=== PATIENT | female | born 1935 | race Caucasian/White ===

== ENCOUNTER 2016-10-21 22:30 | Inpatient (IN) | payer MEDICAID ==
--- NOTE | 2016-10-21 23:10 | ED Physician Chart ---
Chief Complaint/HPI - Patient Information Date Seen:: 10/21/16 Time Seen:: 23:07 Chief Complaint:: MECHANICAL FALL WITH HEAD AND LT HIP INJURY History of Present Illness:: PT WAS GOING DOWN STEP WHEN SHE MISS STEPPED AND FELL TO CONCRETE SURFACE. SHE STRUCK HER HEAD AND LOST CONSCIOUSNESSNESS FOR A MINUTE OR TWO. ALSO COMPLAINING OF PAIN IN THE LEFT HIP AND PELVIC REGION. Review of Systems - Review of Systems General/Constitutional: No fever, No chills, No weight loss, No weakness, No diaphoresis Skin: No skin lesions, No rash, No bruising Head: No light-headedness, Other (mild headache.) Eyes: No loss of vision, No pain, No diplopia ENT: No earache, Nasal drainage, No sore throat, No tinnitus Neck: No neck pain, No mass noted Cardio Vascular: No chest pain, No palpitations, No edema Pulmonary: No SOB, No cough, No sputum, No wheezing GI: No nausea, No vomiting, No diarrhea, No pain G/U: No dysuria, No frequency Picture Frames Inspector: No abnormal vaginal bleed Musculoskeletal: Bone or joint pain (left hip region.), No back pain, No muscle pain Psychiatric: No prior psych history, No suicidal ideation Neurological: No syncope, Weakness (weakness and left lower extremity secondary to traumatic injury.) Past Medical History - Past Medical History Past Medical History: HTN Social History: Non Smoker, No Alcohol, No Drug Use Surgical History: None, other (, cataract surgery left eye.) Psychiatricy History: None Family Medical History - Family Member Daughter Ethnicity: Living Status: Still Living Physical Exam - Physical Examination General/Constitutional: Awake, Well-developed, well-nourished, Alert Other Gen/Cons comments:: Moderate distress from her left hip region. Head: Atraumatic Eyes: Lids, conjuctiva normal, PERRL, EOMI Skin: Nl inspection, No rash, No skin lesions, No ecchymosis, Well hydrated, No lymphadenopathy ENMT: TM canals nl, Nasal exam nl, Tonsils nl Other ENMT comments:: Oral mucosa is dry. Neck: Nontender, No JVD, No mass, No stridor Other Neck comments:: Range of motion is not assessed for concern of possible C-spine fracture. Respiratory: Nl effort/Exclusion, No Wheeze/Rhonchi/Rales Cardio Vascular: No murmur, gallop, rubs, NL S1 S2 Other Cardio Vascular comments:: Ration has adequate pulses in all 4 extremities. GI: No tenderness/rebounding/guarding, No organomegaly, No hernia, Normal BS's, Nondistended, No mass/bruits, No McBurney tenderness Other GI comments:: Rectal exam deferred at my discretion. : No CVA tenderness Other Extremities comments:: has foreshortening of the left lower extremity and tenderness to palpation over the hip region. Good distal pulses. Sensation is intact throughout to light touch. Neuro/Psych: Normal sensory exam, Mood normal Other Neuro/Psych comments:: Gait not tested secondary to concern over possible left hip fracture. Misc: No paraspinal tenderness Labs/Radiology/EKG Results - Lab Results Results: 2 views of the left hip show an intertrochanteric displaced fracture of the left hip. It is no dislocation of the hip joint and no visible pelvic fracture. Mild degenerative changes of the hip joint are present. IMPRESSION: ACUTE INTERTROCHANTERIC FRACTURE. CT scan of the head and C-spine without contrast was negative for any evidence of acute traumatic injury or intracranial bleed. Laboratory Tests 10/21/16 10/21/16 10/21/16 23:26 23:26 23:26 WBC 13.0 H RBC 4.64 Hgb 13.9 Hct 41.3 MCV 89.0 MCH 30.1 MCHC Differential 33.8 RDW 11.7 Plt Count 309 MPV 8.0 Neutrophils % 83.6 H Lymphocytes % 11.7 L Monocytes % 3.1 Eosinophils % 0.9 Basophils % 0.7 Sodium 133 L Potassium 2.9 L* Chloride 97 L Carbon Dioxide 27.4 Anion Gap 11.5 BUN 9 Creatinine 0.5 L Est GFR ( Amer) TNP Est GFR (Non-Af Amer) TNP BUN/Creatinine Ratio 18.0 Glucose 228 H Whole Bld Lactic Acid 2.79 H* Calcium 9.1 The CBC shows a leukocytosis of 13,000 which is probably consistent with a traumatic fracture of her left hip. The whole blood lactic acid is 2.79 which is moderately elevated. The white count of 13,000 makes one concerned regarding possible sepsis and the patient was treated with 30 mL of normal saline per kilogram and ceftriaxone and IV ceftriaxone 2 g. Chemistries showed a mild hypokalemia and hyponatremia. Renal function was normal. Was moderate elevation of the serum glucose at 228. Assessment - Assessment General Assessment: CASE SUMMARY: A 81-year-old female was brought to the emergency department by her family after having sustained a fall while walking downstairs. The family members stated that she miss stepped and fell to a concrete surface impacting her head with loss of consciousness. He T scan of the head and cervical spine were obtained showing no evidence of IC bleeding or acute trauma. The patient also complained of pain in the region of the left hip and it was noted that there was shortening and some mild external rotation of the left lower extremity. Radiographic studies confirmed an intertrochanteric fracture of the left hip. Laboratory studies were the most part were unremarkable except for a white count of 13,000 and a lactic acid greater than 2.0. As a precaution the patient was loaded with 30 mL/kg of normal saline and treated with IV ceftriaxone for the possibility of sepsis. Patient will be admitted to the hospital for further treatment of her hip fracture. MDM DDX FOR GROUND LEVEL MECHANICAL FALL: NO SKULL FRACTURE OR IC BLEED BASED ON HEAD CT. NO C-SPINE FX OR SUBLUXATION BASED ON C-SPINE CT SCAN. NO OPEN FRACTURES BASED ON PHYSICAL EXAM. ED Septic Shock - . Is Septic Shock (SBP<90, OR Lactate>4 mmol\L) present?: No
[2016-10-21 23:35] LABS: % BASOPHILS 0.7 % (0.0-2.0); % EOSINOPHILS 0.9 % (0.0-5.0); % LYMPHOCYTES 11.7 % (20.0-50.0); % MONOCYTES 3.1 % (2.0-10.0); % NEUTROPHILS 83.6 % (40.0-80.0); HEMATOCRIT 41.3 % (35.0-45.0); HEMOGLOBIN 13.9 gm/dL (11.7-16.1); MEAN CORPUSCULAR HEMOGLOBIN 30.1 pg (27.0-31.0); MEAN CORPUSCULAR HGB CONC 33.8 pg (28.0-36.0); NEUTROPHILE ABSOLUTE 10.9 Th/cmm (1.8-8.0); PLATELET COUNT 309 Th/cmm (150-400); RED BLOOD COUNT 4.64 Mil/cmm (3.80-5.20); RED CELL DISTRIBUTION WIDTH 11.7 % (11.5-20.0)
[2016-10-21 23:54] LABS: ANION GAP 11.5 (7.0-16.0); BUN - UREA NITROGEN 9 mg/dL (7-25); CALCIUM SERUM 9.1 mg/dL (8.6-10.3); CARBON DIOXIDE 27.4 mEq/L (21.0-31.0); CHLORIDE 97 mEq/L (98-107); CREATININE - SERUM 0.5 mg/dL (0.6-1.2); GLUCOSE 228 mg/dL (70-105); SODIUM SERUM 133 mEq/L (136-145)
[2016-10-22 00:06] LABS: POTASSIUM SERUM 2.9 mEq/L (3.5-5.1)
[2016-10-22] MEDS ORDERED: Sodium Chloride 0.9% 2,000 ML IV ONE (00:40)
[2016-10-22] MEDS ORDERED: Morphine Sulfate 2 mg/mL 1mL Syr ONE (00:41)
[2016-10-22] MEDS: cefTRIAXone 2 GM in Sodium Chloride 0.9% 100 ML IV ONE (01:03)
[2016-10-22 02:33] LABS: URINE BILIRUBIN NEGATIVE (NEGATIVE); URINE BLOOD SMALL (NEGATIVE); URINE GLUCOSE (UA) NEGATIVE (NEGATIVE); URINE KETONE NEGATIVE (NEGATIVE); URINE PROTEIN NEGATIVE (NEGATIVE)
[2016-10-22 02:37] LABS: URINE COLOR YELLOW
[2016-10-22 02:38] LABS: URINE BACTERIA FEW /hpf (NONE SEEN); URINE EPITHELIAL CELLS FEW /lpf (FEW); URINE WBC 0-2 /hpf (0-5)
[2016-10-22 03:25] VITALS: BP 130/72
[2016-10-22] MEDS: KCL 20mEq/100mL Premix 20 MEQ/100 ML PIGGYBACK IV SCH ×2 (05:18→18:34)
[2016-10-22] MEDS: D5-0.45NS 1,000 ML IV SCH (05:21)
[2016-10-22] MEDS: Morphine Sulfate 2 mg/mL 1mL Syr IVP PRN ×3 (07:51→22:08)
--- NOTE | 2016-10-22 08:02 | Diagnostic Imaging Report ---
Head CT without intravenous contrast Indication: Head injury, loss of consciousness Comparison: None Technique: Axial images were obtained from the vertex to the skull base without IV contrast. Coronal reconstructions were made. Total DLP: 525, CTDI31 FINDINGS: Images of the brain obtained without contrast demonstrate no evidence of an acute hemorrhage. Moderate supratentorial white matter disease is noted. The ventricles and basal cisterns are patent. No mass effect or midline shift. No evidence of a skull fracture or focal soft tissue swelling. The visualized paranasal sinuses are clear. Atherosclerosis is noted. IMPRESSION: No evidence of acute intracranial hemorrhage. Moderate supratentorial white matter disease which is nonspecific and may be due to chronic microvessel ischemia. Atherosclerotic vascular disease.
--- NOTE | 2016-10-22 08:05 | Diagnostic Imaging Report ---
Left hip/pelvis (2 views) HISTORY: Pain, trauma The exam demonstrates [a displaced] left intratrochanteric fracture. Narrowing about the right hip joint related to degenerative change. Degenerative changes seen in the lower lumbar spine. IMPRESSION: 1. Displaced left intertrochanteric fracture 2. Degenerative changes about the right hip and lower lumbar spine.
--- NOTE | 2016-10-22 08:08 | Diagnostic Imaging Report ---
CT cervical spine without IV contrast HISTORY: Trauma COMPARISON: None Technique: Axial images were obtained from the skull base to the upper thoracic spine without IV contrast. Multiplanar reconstructions were made. Total DLP: 398, CTDI22 FINDINGS: Images of the spine cervical spine obtained without contrast demonstrate no evidence of a fracture advanced multilevel degenerative changes are seen with multilevel moderate to advanced disc space loss of height and marginal osteophytic spurs. There is 1 to 2 mm anterolisthesis of C7 on T1 likely due to facet arthropathy. No prevertebral soft tissue swelling Atherosclerotic vascular disease are seen with retropharyngeal bilateral carotid arteries incidentally noted. The lung apices are clear. IMPRESSION: No evidence of acute fracture. Advanced degenerative changes. 1. 2 mm anterolisthesis of C7 on T1 most likely due to facet arthropathy. Atherosclerotic vascular disease with retropharyngeal bilateral internal carotid arteries incidentally noted.
[2016-10-22] MEDS: Enoxaparin 40 mg/0.4 mL 0.4mL Syr SUBQ SCH (09:17)
[2016-10-22] MEDS ORDERED: KCL 20mEq/100mL Premix 20 MEQ/100 ML PIGGYBACK IV ONE (12:30)
--- NOTE | 2016-10-22 17:43 | Consultation ---
Consult Note - Consult Note Service Date: 10/22/16 Referring Physician: Chidi Vora Consult Note: PHYSICIAN Consultation Note: Date of Admission: 10/22/16 Purpose of Consultation: Leukocytosis. Chief Complaint: Patient MARIA LUISA CLOUD was admitted to location Medical/Surgical Unit I with LEFT HIP FX. History of Present Illness: 81 y female was walking out of door, and tripped on the steps and fell. She complained of left hip pain so she was brought to the ER for further evaluation. Her xray of the hip showed displaced intertrochanteric fracture of the left femoral neck. His WBC Count was 13,000. sepsis w/u was performed and started on Rocephin. ID consult was called for antibiotic management. Past Medical History: Hypertension. Allergies Allergy/AdvReac Type Severity Reaction Status Date / Time No Known Allergies Allergy Verified 10/21/16 23:13 Vital Signs Temp 98.4 F 10/22/16 14:00 Pulse 76 10/22/16 17:25 Resp 18 10/22/16 17:25 BP 132/72 10/22/16 14:00 Pulse Ox 99 10/22/16 17:25 Intake & Output 10/21/16 10/22/16 10/22/16 18:59 06:59 18:59 Intake Total 240 210 Output Total 250 Balance -10 210 Weight (lbs) 61.825 kg 61.689 kg Intake: Oral 240 210 Output: Urine 250 Home Medication Medication Instructions Recorded Type Aspirin 81 mg PO DAILY 10/22/16 History Hydrochlorothiazide 25 mg PO DAILY 10/22/16 History amLODIPine Besylate [Norvasc*] 10 mg PO DAILY 10/22/16 History Current Medications Generic Name Dose Route Start Last Admin Trade Name Freq PRN Reason Stop Dose Admin Enoxaparin Sodium 40 mg 10/22/16 09:00 10/22/16 09:17 Lovenox SUBQ 12/21/16 08:59 40 mg DAILY GABRIELA Administration Ceftriaxone Sodium 1 gm/ 50 mls @ 100 mls/hr 10/22/16 21:00 Sodium Chloride IV 12/21/16 20:59 Q24HR GABRIELA Dextrose/Sodium Chloride 1,000 mls @ 80 mls/hr 10/22/16 02:42 10/22/16 05:21 D5-0.45ns IV 12/21/16 02:41 80 mls/hr .[id number] GABRIELA Administration Morphine Sulfate 2 mg 10/22/16 02:41 10/22/16 12:41 Morphine IVP 12/21/16 02:40 2 mg Q4HR PRN Administration Pain (Severe) Ondansetron HCl 4 mg 10/22/16 02:41 Zofran IV 12/21/16 02:40 Q6H PRN Nausea / Vomiting Review of Systems: A 12 point ROS was reviewed with the pertinent positive and negatives noted in the HPI. C/o pain in her left hip. NO fever, no chils. no dy Social History Smoking Status Never smoker Drug Use No Alcohol Use No Family Medical History Family Medical History Start: 10/22/16 02: 49 Freq: ONCE Status: Active Document 10/22/16 02:49 DANTE (Rec: 10/22/16 03:17 DANTE MAINOR-WOW- MS1) Family Medical History Sister Name: Ira Age 52 Hx Family Diabetes Yes Daughter Name: marques Age 39 Ethnicity Hx Family Hypertension Yes Physical Exam: General: Comfortable,not indistress. HEENT: Head: Atraumatic, normocephalic. Oral cavity: Moist, pink tongue. Eyes : Pallor is present and no icterus. Pupils PERRLA. EOMI. Neck: Neck supple no JVD noted to be thick and midline. Cardio: S1 and S2 within normal metabolism normal murmur or gallop Respiratory: CTAP Abdominal: Soft, nontender, nondistended, bowel sounds present Genital/Urinary: Deferred Extremities: No cyanosis, no clubbing, no edema. Tenderness on the left hip. Neurological: Alert, awake, alert, oriented 3. No focal neuro deficit. Assessment: 1. Leukocytosis, likely reactive. 2. Left hip fracture. 3. Hypertension. Plan: Continue Rocephin and if cultures come negative, may dc antibiotics after surgery is performed. Thank you, Dr. Chidi Vora involving me taking care of this patient Signed, Brandon Neil M.D. [id number]
[2016-10-22] MEDS: cefTRIAXone 1 GM in Sodium Chloride 0.9% 50 ML IV SCH (21:07)
--- NOTE | 2016-10-23 01:24 | Consultation ---
DATE OF CONSULTATION: 10/22/2016 ORTHOPEDIC SURGERY CONSULTATION HISTORY OF PRESENT ILLNESS: The patient is a 81-year-old lady admitted to [facility] via the Emergency Room on 10/22/2016 with a fracture of the left hip. HISTORY: The patient stated that she tripped and fell while going down a step, landing on her left side and also striking her head. Following the fall, she had pain in her left hip and was unable to stand or walk. She is brought to the hospital and x-rays were taken and a fracture of the left hip was found and she was admitted. PAST HISTORY: Surgeries, cataract of left eye. MEDICATIONS: For hypertension. EXAMINATION: The patient was examined in her hospital room. She was not still removed about because of her left hip fracture. Head is normocephalic. There is tenderness in the left parietal region. Upper extremities are unremarkable. Lower extremities, there is pain, swelling, and tenderness about the left hip. Any attempt at movement is very painful. Ankles are dry. Peripheral pulses are thready. Right lower extremity is unremarkable. IMAGING STUDIES: I did x-ray in the PACS, hips and pelvis. This is an intertrochanteric fracture of the left hip, which is displaced. ORTHOPEDIC DIAGNOSIS: Intertrochanteric fracture, left hip, closed, and displaced. PLAN: The patient was given a full informed surgical consent for surgery, 10/23/2016, ORIF fracture, left hip. JOB# [id number]
[2016-10-23] MEDS: D5-0.45NS 1,000 ML IV SCH ×2 (04:06→21:12)
--- NOTE | 2016-10-23 05:19 | History & Physical ---
ADMIT DATE: 10/22/2016 CHIEF COMPLAINT: Left hip area pain status post fall. HISTORY OF PRESENT ILLNESS: This is a 81-year-old female who tripped and fell at home yesterday and started experiencing severe left hip pain and was brought to Emergency Room at [facility], evaluated by pelvic x-ray done suggestive of displaced left intertrochanteric fracture, so the patient was subsequently admitted to the hospital for evaluation and treatment. The patient is Fijian speaking. Family was at the bedside. They are also Fijian speaking. outpatient admitting clerk was used for communication. Per family, the patient tripped and fell at home yesterday and started experiencing severe hip pain, so the patient was brought to Emergency Room. She denies any history of chest pain. No dizziness, no palpitations, no nausea, no vomiting, no headache, no trouble speech, no trouble vision, or any loss of consciousness. PAST MEDICAL HISTORY: Hypertension. PAST SURGICAL HISTORY: Denies. FAMILY HISTORY: Denies significant family history. SOCIAL HISTORY: Lives at home. No prior alcohol, tobacco, or street drug use. CURRENT MEDICATIONS: As per medication reconciliation. ALLERGIES: No known drug allergies reported. REVIEW OF SYSTEMS: Possible left hip pain. No fever, no chills, no chest pain, no shortness of breath, no dizziness, no palpitations or nausea. No vomiting. No headache. No neck pain. No leg swelling. No dysuria. No hematuria. PHYSICAL EXAMINATION: VITAL SIGNS: Temperature 98.5, pulse 75, respirations 19, blood pressure 172/74. Pain 9/10. GENERAL APPEARANCE: The patient does not seem in acute distress. HEENT: Unremarkable. HEART: S1 and S2 normal. LUNGS: Clear to auscultation bilaterally. ABDOMEN: Soft and nontender. NEUROLOGIC: Awake and alert. Moves all extremities. No focal deficit. MUSCULOSKELETAL: Left hip, painful range of motion. Otherwise, normal musculoskeletal exam. ASSESSMENT: 1. Status post mechanical fall. 2. Left hip intertrochanteric fracture. 3. Hypertension. 4. Leukocytosis, possibly reactive. 5. Elevated lactic acid level. PLAN: Admitted to Med/Surge floor. Orthopedic was consulted and IV morphine was started. Lovenox for DVT prophylaxis started. Orthopedic evaluated. The patient scheduled for surgery tomorrow afternoon. ID was also consulted for evaluation of leukocytosis. The patient was given empiric Rocephin. Home medication that reconciled will continue. Discussed with family at bedside regarding the patient's condition and plan of care, they verbalized understanding. Case was discussed with ID. Plan of care was discussed with nursing staff. JOB# [id number]
[2016-10-23] MEDS: Morphine Sulfate 2 mg/mL 1mL Syr IVP PRN ×3 (05:36→20:55)
[2016-10-23 05:42] LABS: HEMATOCRIT 39.7 % (35.0-45.0); HEMOGLOBIN 13.4 gm/dL (11.7-16.1); MEAN CELL VOLUME 89.3 fl (81-100); MEAN CORPUSCULAR HEMOGLOBIN 30.1 pg (27.0-31.0); MEAN CORPUSCULAR HGB CONC 33.7 pg (28.0-36.0); MEAN PLATELET VOLUME 8.5 fl; NEUTROPHILE ABSOLUTE 13.7 Th/cmm (1.8-8.0); PLATELET COUNT 260 Th/cmm (150-400); RED BLOOD COUNT 4.44 Mil/cmm (3.80-5.20); RED CELL DISTRIBUTION WIDTH 11.9 % (11.5-20.0)
[2016-10-23 06:07] LABS: WHITE BLOOD COUNT 16.7 Th/cmm (4.8-10.8)
[2016-10-23 06:27] LABS: ANION GAP 10.8 (7.0-16.0); BUN - UREA NITROGEN 5 mg/dL (7-25); BUN/CREATININE RATIO 12.5; CALCIUM SERUM 8.7 mg/dL (8.6-10.3); CARBON DIOXIDE 27.7 mEq/L (21.0-31.0); CHLORIDE 96 mEq/L (98-107); CREATININE - SERUM 0.4 mg/dL (0.6-1.2); GLUCOSE 196 mg/dL (70-105); SODIUM SERUM 132 mEq/L (136-145)
[2016-10-23 06:29] LABS: POTASSIUM SERUM 2.5 mEq/L (3.5-5.1)
[2016-10-23 07:16] LABS: PROTHROMBIN TIME (TEST) 10.4 SECONDS (9.5-11.5)
[2016-10-23 07:46] LABS: TOTAL CELLS COUNTED 100
[2016-10-23 07:47] LABS: BAND NEUTROPHILE 4 % (0-10); EOSINOPHIL 2 % (0-5); NEUTROPHILS 81 % (40-80)
[2016-10-23] MEDS: Enoxaparin 40 mg/0.4 mL 0.4mL Syr SUBQ SCH (08:40)
[2016-10-23] MEDS ORDERED: Potassium Chloride 40 MEQ, Lidocaine 1% 20mL Vial 25 MG in Sodium Chloride 0.9% 250 ML IV ONE (08:46)
[2016-10-23] MEDS ORDERED: Potassium Chloride 20 mEq ER Tab PO ONE (08:47)
--- NOTE | 2016-10-23 08:48 | Diagnostic Imaging Report ---
CHEST X-RAY: AP view INDICATION: Shortness of breath COMPARISON: None FINDINGS: The patient is rotated. Chronic interstitial lung changes are seen with no focal consolidation or effusions. The patient is rotated. Cardiomegaly is noted. Degenerative changes of the spine are noted. IMPRESSION: Limited exam due to rotation. Chronic interstitial lung changes with no focal consolidation identified. Cardiomegaly.
[2016-10-23] MEDS ORDERED: Sodium Chloride 0.9% IRR 1,000 ML IV ONE (15:00)
[2016-10-23] MEDS ORDERED: fentaNYL Citrate 100 mcg/2mL Vial ONE (15:36)
[2016-10-23] MEDS ORDERED: Bupivacaine 0.25% W/Ep 10 mL Vial ONE (17:05)
--- NOTE | 2016-10-23 19:34 | Infectious Disease Prog Note ---
Infectious Disease Subjective - Review of Systems Service Date: 10/23/16 Events since last encounter: Left hip ORIF performed today. Subjective: Patient has orif of left hip performed today. No fever, no chills. Infectious Disease Objective - Results Result Diagrams: 10/25/16 06:58 10/25/16 06:58 Recent Labs: Laboratory Last Values WBC 16.7 Th/cmm (4.8-10.8) H D 10/23/16 05:00 RBC 4.44 Mil/cmm (3.80-5.20) 10/23/16 05:00 Hgb 13.4 gm/dL (11.7-16.1) 10/23/16 05:00 Hct 39.7 % (35.0-45.0) 10/23/16 05:00 MCV 89.3 fl (81-100) 10/23/16 05:00 MCH 30.1 pg (27.0-31.0) 10/23/16 05:00 MCHC Differential 33.7 pg (28.0-36.0) 10/23/16 05:00 RDW 11.9 % (11.5-20.0) 10/23/16 05:00 Plt Count 260 Th/cmm (150-400) 10/23/16 05:00 MPV 8.5 fl 10/23/16 05:00 Neutrophils % SILVERING APPLICATOR 10/23/16 05:00 Band Neutrophils % 4 % (0-10) 10/23/16 05:00 Lymphocytes % SILVERING APPLICATOR 10/23/16 05:00 Monocytes % SILVERING APPLICATOR 10/23/16 05:00 Eosinophils % SILVERING APPLICATOR 10/23/16 05:00 Basophils % SILVERING APPLICATOR 10/23/16 05:00 Neutrophils (Manual) 81 % (40-80) H 10/23/16 05:00 Lymphocytes 9 % (20-50) L 10/23/16 05:00 Monocytes 3 % (2-10) 10/23/16 05:00 Eosinophils 2 % (0-5) 10/23/16 05:00 PT 10.4 SECONDS (9.5-11.5) 10/23/16 05:00 INR 1.00 (0.5-1.4) 10/23/16 05:00 Sodium 132 mEq/L (136-145) L 10/23/16 05:00 Potassium 2.5 mEq/L (3.5-5.1) L* 10/23/16 05:00 Chloride 96 mEq/L (98-107) L 10/23/16 05:00 Carbon Dioxide 27.7 mEq/L (21.0-31.0) 10/23/16 05:00 Anion Gap 10.8 (7.0-16.0) 10/23/16 05:00 BUN 5 mg/dL (7-25) L 10/23/16 05:00 Creatinine 0.4 mg/dL (0.6-1.2) L 10/23/16 05:00 Est GFR ( Amer) TNP 10/23/16 05:00 Est GFR (Non-Af Amer) TNP 10/23/16 05:00 BUN/Creatinine Ratio 12.5 10/23/16 05:00 Glucose 196 mg/dL (70-105) H 10/23/16 05:00 Hemoglobin A1c % 6.8 % (4.0-6.0) H 10/21/16 23:26 Whole Bld Lactic Acid 3.06 mmol/L (0.60-1.99) H* 10/22/16 01:30 Calcium 8.7 mg/dL (8.6-10.3) 10/23/16 05:00 Urine Source [place] 10/22/16 02:24 Urine Color YELLOW 10/22/16 02:24 Urine Clarity CLEAR (CLEAR) 10/22/16 02:24 Urine pH 7.0 (4.6 - 8.0) 10/22/16 02:24 Ur Specific [place] 1.010 (1.005-1.030) 10/22/16 02:24 Urine Protein NEGATIVE mg/dL (NEGATIVE) 10/22/16 02:24 Urine Glucose (UA) NEGATIVE mg/dL (NEGATIVE) 10/22/16 02:24 Urine Ketones NEGATIVE mg/dL (NEGATIVE) 10/22/16 02:24 Urine Blood SMALL (NEGATIVE) H 10/22/16 02:24 Urine Nitrate NEGATIVE (NEGATIVE) 10/22/16 02:24 Urine Bilirubin NEGATIVE (NEGATIVE) 10/22/16 02:24 Urine Urobilinogen 1.0 E.U./dL (0.2 - 1.0) 10/22/16 02:24 Ur Leukocyte Esterase NEGATIVE (NEGATIVE) 10/22/16 02:24 Urine RBC 5-10 /hpf (0-5) H 10/22/16 02:24 Urine WBC 0-2 /hpf (0-5) 10/22/16 02:24 Ur Epithelial Cells FEW /lpf (FEW) 10/22/16 02:24 Urine Bacteria FEW /hpf (NONE SEEN) 10/22/16 02:24 - Physical Exam Vitals and I&O: Vital Signs Temp 97.7 F 10/23/16 15:00 Pulse 69 10/23/16 15:00 Resp 18 10/23/16 15:00 BP 149/70 10/23/16 15:00 Pulse Ox 97 10/23/16 15:00 Intake & Output 10/23/16 10/23/16 10/24/16 06:59 18:59 06:59 Intake Total 1570 Output Total 900 1200 Balance 670 -1200 Weight (lbs) 61.326 kg 61.235 kg Intake: Intake, IV Amount 1050 D5-0.45NS 1,000 ml @ 80 1000 mls/hr IV .[id number] [facility] Rx #:[id number] cefTRIAXone 1 gm In 50 Sodium Chloride 0.9% 50 ml @ 100 mls/hr IV Q24HR [facility] Rx#:[id number] Oral 520 Output: Urine 900 1200 Active Medications: Current Medications Amlodipine Besylate (Norvasc) 10 mg PO DAILY GABRIELA Stop: 12/21/16 20:14 Last Admin: 10/23/16 08:37 Dose: Not Given Enoxaparin Sodium (Lovenox) 40 mg SUBQ DAILY GABRIELA Stop: 12/21/16 08:59 Last Admin: 10/23/16 08:40 Dose: Not Given Hydrochlorothiazide (Hctz) 25 mg PO DAILY GABRIELA Stop: 12/21/16 20:14 Last Admin: 10/23/16 08:40 Dose: Not Given Ceftriaxone Sodium 1 gm/ (Sodium Chloride) 50 mls @ 100 mls/hr IV Q24HR GABRIELA Stop: 12/21/16 20:59 Last Infusion: 10/22/16 23:55 Dose: Infused Dextrose/Sodium Chloride (D5-0.45ns) 1,000 mls @ 80 mls/hr IV .[id number] [facility] Stop: 12/21/16 02:41 Last Admin: 10/23/16 04:06 Dose: 80 mls/hr Morphine Sulfate (Morphine) 2 mg IVP Q4HR PRN PRN Reason: Pain (Severe) Stop: 12/21/16 02:40 Last Admin: 10/23/16 12:20 Dose: 2 mg Ondansetron HCl (Zofran) 4 mg IV Q6H PRN PRN Reason: Nausea / Vomiting Stop: 12/21/16 02:40 Last Admin: 10/23/16 12:10 Dose: 4 mg General: no acute distress, well developed, well nourished HEENT: atraumatic, normocephalic Neck: supple Cardiovascular: S1S2, regular Lungs: clear to auscultation bilaterally, clear to percussion Abdomen: soft, no tender, no distended Extremities: no cyanosis, no clubbing, no edema Neurological: awake, alert, oriented Skin: intact Infectious Disease Assmt/Plan - Assessment Assessment: 1. Leukocytosis, likely reactive, cannot rule out sepsis. 2. left hip fracture. 3. ORIF OF LEFT HIP. 4. Hypertension. - Plan Plan: Continue Rocephin. Nutritional Asmnt/Malnutr-PDOC - Dietary Evaluation Malnutrition Findings (Please click <Entered> for more info): Nutritional Asmnt/Malnutrition Start: 10/22/16 14: 16 Text: Status: Complete Freq: Document 10/22/16 14:17 GSUN (Rec: 10/22/16 14:35 GSUN MAINOR-[email or web address]) Nutritional Asmnt/Malnutrition Patient General Information Nutritional Screening High Risk Screening Diagnosis Reason for visit: left hip fracture Pertinent Medical Hx/Surgical Hx ER report: HTN, cataract surgery to left eye Subjective Information 81 year old female form home, Lebanese speaking. Spoke to pt and granddaughter at bedside who assisted with translations . Pt is unaware of elevated glucose levels. Pt usually with fiar appetite, sometimes skips dinner. RD explained importance of consistent meals and suggested CCHO diet to promote glycemic control, pt understood and agreed. UBW 140lb. Edentulous, pt reported no difficulties eating. No muscle fat wasting noted. Current Diet Order/ Nutrition Support Low sodium Pertinent Medications D5-0.45ns, Morphine, Zofran Pertinent Labs 10/21: potassium 2.9L, glucose 228H, A1c 6.8H Nutritional Hx/Data Height 1.47 m Height (Calculated Centimeters) 147.3 Current Weight (lbs) 61.825 kg Weight (Calculated Kilograms) 61.8 Weight (Calculated Grams) 56632.6 Usual body Weight (lbs) 140 [place] Body Weight 95 Recent Weight Change No Weight Status Overweight GI Symptoms Skin Integrity/Comment: Jaswinder Loya. Skin intact. Estimated Nutritional Goals BEE in Kcals: Using Current wt Calories/Kcals/Kg CBW 136.3lb/62kg Kcals Calculated 1550-1860kcal (25-30kcal/kg) Protein: Using Current wt Protein Calculated 62g (1g/kg) Fluid: ml 1550-1860ml (1ml/kcal) Nutritional Problem 1. Problem Problem Altered nutrition related laboratory values related to Etiology unknown etiology aeb Signs/Symptoms: elevated glucose on adm 228, A1c 6.8 Intervention/Recommendation Comments 1. Recommend [address] to promote glycemic control. Expected Outcomes/Goals Expected Outcomes/Goals 1. PO intake to meet at least 75% of estimated nutritional needs.
[2016-10-23] MEDS: cefTRIAXone 2 GM in Sodium Chloride 0.9% 100 ML IV ONE (21:00)
--- NOTE | 2016-10-23 21:15 | General Progress Note ---
Subjective - Review of Systems Service Date: 10/23/16 Subjective: Late entry: Patient was seen and examined earlier this am was scheduled for ORIF today Objective - Results Result Diagrams: 10/23/16 05:00 10/23/16 05:00 Recent Labs: Laboratory Last Values WBC 16.7 Th/cmm (4.8-10.8) H D 10/23/16 05:00 RBC 4.44 Mil/cmm (3.80-5.20) 10/23/16 05:00 Hgb 13.4 gm/dL (11.7-16.1) 10/23/16 05:00 Hct 39.7 % (35.0-45.0) 10/23/16 05:00 MCV 89.3 fl (81-100) 10/23/16 05:00 MCH 30.1 pg (27.0-31.0) 10/23/16 05:00 MCHC Differential 33.7 pg (28.0-36.0) 10/23/16 05:00 RDW 11.9 % (11.5-20.0) 10/23/16 05:00 Plt Count 260 Th/cmm (150-400) 10/23/16 05:00 MPV 8.5 fl 10/23/16 05:00 Neutrophils % VERTICAL PUNCH OPERATOR 10/23/16 05:00 Band Neutrophils % 4 % (0-10) 10/23/16 05:00 Lymphocytes % VERTICAL PUNCH OPERATOR 10/23/16 05:00 Monocytes % VERTICAL PUNCH OPERATOR 10/23/16 05:00 Eosinophils % VERTICAL PUNCH OPERATOR 10/23/16 05:00 Basophils % VERTICAL PUNCH OPERATOR 10/23/16 05:00 Neutrophils (Manual) 81 % (40-80) H 10/23/16 05:00 Lymphocytes 9 % (20-50) L 10/23/16 05:00 Monocytes 3 % (2-10) 10/23/16 05:00 Eosinophils 2 % (0-5) 10/23/16 05:00 PT 10.4 SECONDS (9.5-11.5) 10/23/16 05:00 INR 1.00 (0.5-1.4) 10/23/16 05:00 Sodium 132 mEq/L (136-145) L 10/23/16 05:00 Potassium 2.5 mEq/L (3.5-5.1) L* 10/23/16 05:00 Chloride 96 mEq/L (98-107) L 10/23/16 05:00 Carbon Dioxide 27.7 mEq/L (21.0-31.0) 10/23/16 05:00 Anion Gap 10.8 (7.0-16.0) 10/23/16 05:00 BUN 5 mg/dL (7-25) L 10/23/16 05:00 Creatinine 0.4 mg/dL (0.6-1.2) L 10/23/16 05:00 Est GFR ( Amer) TNP 10/23/16 05:00 Est GFR (Non-Af Amer) TNP 10/23/16 05:00 BUN/Creatinine Ratio 12.5 10/23/16 05:00 Glucose 196 mg/dL (70-105) H 10/23/16 05:00 Hemoglobin A1c % 6.8 % (4.0-6.0) H 10/21/16 23:26 Whole Bld Lactic Acid 3.06 mmol/L (0.60-1.99) H* 10/22/16 01:30 Calcium 8.7 mg/dL (8.6-10.3) 10/23/16 05:00 Urine Source [place] 10/22/16 02:24 Urine Color YELLOW 10/22/16 02:24 Urine Clarity CLEAR (CLEAR) 10/22/16 02:24 Urine pH 7.0 (4.6 - 8.0) 10/22/16 02:24 Ur Specific [place] 1.010 (1.005-1.030) 10/22/16 02:24 Urine Protein NEGATIVE mg/dL (NEGATIVE) 10/22/16 02:24 Urine Glucose (UA) NEGATIVE mg/dL (NEGATIVE) 10/22/16 02:24 Urine Ketones NEGATIVE mg/dL (NEGATIVE) 10/22/16 02:24 Urine Blood SMALL (NEGATIVE) H 10/22/16 02:24 Urine Nitrate NEGATIVE (NEGATIVE) 10/22/16 02:24 Urine Bilirubin NEGATIVE (NEGATIVE) 10/22/16 02:24 Urine Urobilinogen 1.0 E.U./dL (0.2 - 1.0) 10/22/16 02:24 Ur Leukocyte Esterase NEGATIVE (NEGATIVE) 10/22/16 02:24 Urine RBC 5-10 /hpf (0-5) H 10/22/16 02:24 Urine WBC 0-2 /hpf (0-5) 10/22/16 02:24 Ur Epithelial Cells FEW /lpf (FEW) 10/22/16 02:24 Urine Bacteria FEW /hpf (NONE SEEN) 10/22/16 02:24 - Physical Exam Vitals and I&O: Vital Signs Temp 97.7 F 10/23/16 15:00 Pulse 69 10/23/16 15:00 Resp 18 10/23/16 15:00 BP 149/70 10/23/16 15:00 Pulse Ox 97 10/23/16 15:00 Intake & Output 10/23/16 10/23/16 10/24/16 06:59 18:59 06:59 Intake Total 1570 Output Total 900 1200 Balance 670 -1200 Weight (lbs) 61.326 kg 61.235 kg Intake: Intake, IV Amount 1050 D5-0.45NS 1,000 ml @ 80 1000 mls/hr IV .[id number] [facility] Rx #:[id number] cefTRIAXone 1 gm In 50 Sodium Chloride 0.9% 50 ml @ 100 mls/hr IV Q24HR [facility] Rx#:[id number] Oral 520 Output: Urine 900 1200 Active Medications: Current Medications Amlodipine Besylate (Norvasc) 10 mg PO DAILY [facility] Stop: 12/21/16 20:14 Last Admin: 10/23/16 08:37 Dose: Not Given Enoxaparin Sodium (Lovenox) 40 mg SUBQ DAILY [facility]A Stop: 12/21/16 08:59 Last Admin: 10/23/16 08:40 Dose: Not Given Hydrochlorothiazide (Hctz) 25 mg PO DAILY G[facility]ELA Stop: 12/21/16 20:14 Last Admin: 10/23/16 08:40 Dose: Not Given Ceftriaxone Sodium 1 gm/ (Sodium Chloride) 50 mls @ 100 mls/hr IV Q24HR [facility] Stop: 12/21/16 20:59 Last Infusion: 10/22/16 23:55 Dose: Infused Dextrose/Sodium Chloride (D5-0.45ns) 1,000 mls @ 80 mls/hr IV .[id number] [facility] Stop: 12/21/16 02:41 Last Admin: 10/23/16 04:06 Dose: 80 mls/hr Morphine Sulfate (Morphine) 2 mg IVP Q4HR PRN PRN Reason: Pain (Severe) Stop: 12/21/16 02:40 Last Admin: 10/23/16 20:55 Dose: 2 mg Ondansetron HCl (Zofran) 4 mg IV Q6H PRN PRN Reason: Nausea / Vomiting Stop: 12/21/16 02:40 Last Admin: 10/23/16 12:10 Dose: 4 mg Cardiovascular: Regular rate Lungs: Clear to auscultation Abdomen: Soft, no Tender Assessment/Plan - Assessment Assessment: Left pelvic fracture UTI Hypokalemia HTN - Plan Plan: ORIF today Rocephine IV Fluids Morphine Lovenox Family was updated on pt's condition and plan of care Nutritional Asmnt/Malnutr-PDOC - Dietary Evaluation Malnutrition Findings (Please click <Entered> for more info): Nutritional Asmnt/Malnutrition Start: 10/22/16 14: 16 Text: Status: Complete Freq: Document 10/22/16 14:17 GSUN (Rec: 10/22/16 14:35 [email or web address]) Nutritional Asmnt/Malnutrition Patient General Information Nutritional Screening High Risk Screening Diagnosis Reason for visit: left hip fracture Pertinent Medical Hx/Surgical Hx ER report: HTN, cataract surgery to left eye Subjective Information 81 year old female form home, [place]ian speaking. Spoke to pt and granddaughter at bedside who assisted with translations . Pt is unaware of elevated glucose levels. Pt usually with fiar appetite, sometimes skips dinner. RD explained importance of consistent meals and suggested CCHO diet to promote glycemic control, pt understood and agreed. UBW 140lb. Edentulous, pt reported no difficulties eating. No muscle fat wasting noted. Current Diet Order/ Nutrition Support Low sodium Pertinent Medications D5-0.45ns, Morphine, Zofran Pertinent Labs 10/21: potassium 2.9L, glucose 228H, A1c 6.8H Nutritional Hx/Data Height 1.47 m Height (Calculated Centimeters) 147.3 Current Weight (lbs) 61.825 kg Weight (Calculated Kilograms) 61.8 Weight (Calculated Grams) 09036.6 Usual body Weight (lbs) 140 [place] Body Weight 95 Recent Weight Change No Weight Status Overweight GI Symptoms Skin Integrity/Comment: Jaswinder 20. Skin intact. Estimated Nutritional Goals BEE in Kcals: Using Current wt Calories/Kcals/Kg CBW 136.3lb/62kg Kcals Calculated 1550-1860kcal (25-30kcal/kg) Protein: Using Current wt Protein Calculated 62g (1g/kg) Fluid: ml 1550-1860ml (1ml/kcal) Nutritional Problem 1. Problem Problem Altered nutrition related laboratory values related to Etiology unknown etiology aeb Signs/Symptoms: elevated glucose on adm 228, A1c 6.8 Intervention/Recommendation Comments 1. Recommend [address] to promote glycemic control. Expected Outcomes/Goals Expected Outcomes/Goals 1. PO intake to meet at least 75% of estimated nutritional needs.
[2016-10-23] MEDS: cefTRIAXone 1 GM in Sodium Chloride 0.9% 50 ML IV SCH (22:00)
[2016-10-24] MEDS: Morphine Sulfate 2 mg/mL 1mL Syr IVP PRN ×3 (00:04→10:46)
[2016-10-24 05:05] LABS: % BASOPHILS 0.5 % (0.0-2.0); % EOSINOPHILS 2.1 % (0.0-5.0); % LYMPHOCYTES 9.5 % (20.0-50.0); % MONOCYTES 6.2 % (2.0-10.0); % NEUTROPHILS 81.7 % (40.0-80.0); HEMATOCRIT 36.6 % (35.0-45.0); HEMOGLOBIN 12.4 gm/dL (11.7-16.1); MEAN CELL VOLUME 88.5 fl (81-100); MEAN CORPUSCULAR HGB CONC 33.9 pg (28.0-36.0); MEAN PLATELET VOLUME 8.4 fl; NEUTROPHILE ABSOLUTE 11.2 Th/cmm (1.8-8.0); PLATELET COUNT 252 Th/cmm (150-400); RED BLOOD COUNT 4.13 Mil/cmm (3.80-5.20); RED CELL DISTRIBUTION WIDTH 11.7 % (11.5-20.0)
[2016-10-24 05:12] LABS: ANION GAP 9.5 (7.0-16.0); BUN - UREA NITROGEN 6 mg/dL (7-25); CALCIUM SERUM 8.5 mg/dL (8.6-10.3); CARBON DIOXIDE 27.7 mEq/L (21.0-31.0); CHLORIDE 95 mEq/L (98-107); CREATININE - SERUM 0.4 mg/dL (0.6-1.2); GLUCOSE 240 mg/dL (70-105); POTASSIUM SERUM 3.2 mEq/L (3.5-5.1); SODIUM SERUM 129 mEq/L (136-145); WHITE BLOOD COUNT 13.7 Th/cmm (4.8-10.8)
[2016-10-24] MEDS ORDERED: D5-0.45NS 1,000 ML IV SCH (08:31)
[2016-10-24 09:21] LABS: % BASOPHILS 0.2 % (0.0-2.0); % EOSINOPHILS 3.1 % (0.0-5.0); % LYMPHOCYTES 12.4 % (20.0-50.0); % MONOCYTES 5.7 % (2.0-10.0); % NEUTROPHILS 78.6 % (40.0-80.0); HEMATOCRIT 34.3 % (35.0-45.0); HEMOGLOBIN 11.9 gm/dL (11.7-16.1); MEAN CELL VOLUME 89.5 fl (81-100); MEAN CORPUSCULAR HEMOGLOBIN 31.1 pg (27.0-31.0); MEAN CORPUSCULAR HGB CONC 34.7 pg (28.0-36.0); MEAN PLATELET VOLUME 8.3 fl; NEUTROPHILE ABSOLUTE 10.2 Th/cmm (1.8-8.0); PLATELET COUNT 239 Th/cmm (150-400); RED BLOOD COUNT 3.83 Mil/cmm (3.80-5.20); RED CELL DISTRIBUTION WIDTH 11.6 % (11.5-20.0)
[2016-10-24 09:23] LABS: ALB/GLOB RATIO 1.1 (1.0-1.8); ALKALINE PHOSPHATASE 102 U/L (34-104); ANION GAP 8.3 (7.0-16.0); BILIRUBIN,TOTAL 0.6 mg/dL (0.3-1.0); BUN - UREA NITROGEN 6 mg/dL (7-25); CALCIUM SERUM 8.2 mg/dL (8.6-10.3); CARBON DIOXIDE 27.1 mEq/L (21.0-31.0); CHLORIDE 96 mEq/L (98-107); CREATININE - SERUM 0.3 mg/dL (0.6-1.2); GLUCOSE 205 mg/dL (70-105); POTASSIUM SERUM 3.4 mEq/L (3.5-5.1); SGOT 13 U/L (13-39); SGPT/ALT 10 U/L (7-52); SODIUM SERUM 128 mEq/L (136-145)
[2016-10-24] MEDS: Enoxaparin 40 mg/0.4 mL 0.4mL Syr SUBQ SCH (09:40)
[2016-10-24] MEDS: Multivitamin Tab PO SCH (09:44)
[2016-10-24] MEDS ORDERED: Probiotic Screen MC PRN (10:07)
[2016-10-24 10:25] LABS: WHITE BLOOD COUNT 12.9 Th/cmm (4.8-10.8)
--- NOTE | 2016-10-24 12:16 | Diagnostic Imaging Report ---
Exam: Intraoperative fluoroscopy status post intraoperative reduction internal fixation left hip joint. HISTORY: Left hip effusion Findings: Multiple views of the left hip joint portably in the or reviewed the study demonstrates a normal appearance of the left femoral intramedullary shaft as well as multiple metallic screws transfixing the: Left femur. The head of the left femur is well within the acetabular fossa. IMPRESSION: 1. Satisfactory position metallic hardware status post open reduction internal fixation of the left hip joint as well as rodding of the proximal left femur.
--- NOTE | 2016-10-24 12:59 | Operative Report ---
DATE OF SURGERY: 10/24/2016 PREOPERATIVE DIAGNOSIS: Intertrochanteric fracture, left hip, closed, displaced. POSTOPERATIVE DIAGNOSIS: Intertrochanteric fracture, left hip, closed, displaced. SURGEON: Rogelio Yuen M.D. CERTIFIED VETERINARY TECHNICIAN: None. ANESTHESIOLOGIST: Dr. Paniagua. ANESTHESIA: Spinal anesthesia. PROCEDURE: Open reduction and internal fixation with [employer] Trigen Intertan nail, intertrochanteric fracture, left hip. PROCEDURE IN DETAIL: Following satisfactory spinal anesthesia by Dr. Paniagua, the patient was given intravenous antibiotics. She was placed on the fracture table and appropriately positioned and padded so as to avoid pressure areas. A reduction of the fracture, left hip was carried out and the extremity placed in moderate traction and adduction at the hip. The result was viewed with the C-arm and the reduction was good. A sterile plastic drape was used to seal off the perineum. The left hip and lower extremity were sterilely prepped and draped. The sterile barrier drape was used. A routine timeout was performed. Under C-arm guidance, the tip of the greater trochanter was located and marked on the skin, a 5 cm incision was made above the greater trochanter and incision made through the fascia down to bone. A guidewire was then passed from the medial edge of the greater trochanter into the proximal femur. The entry reamer was then used over the guide pin to the level of the lesser trochanter. The guide pin was removed and an 18 cm long, 130-degree angle Intertan nail was then impacted into the proximal femur to the appropriate depth. The drill guide handle was then assembled and the guide placed through the 130-degree angle hole up to the edge of the skin. A small incision was made and the guide pin directed up into the center of the head. Measurements were taken. The lag screw drill was then used to the appropriate depth and a hole drilled for the compression screw. The anti-rotation device was then placed and the neck reamed for the lag screw, which was then put in place and then the interlocking compression screw placed to the appropriate depth, capturing the lag screw and compressing the fracture. Each step of the procedure was viewed with the C-arm. The fracture now appeared well reduced and fixed. The drill guide in the static hole was used distally through a small incision in the skin to place a 30 mm long, 5 mm locking screw in the lower end of the nail. All of the guides were removed and the final result viewed with the C-arm. Reduction appeared anatomic and stable with the hardware all in ideal position. The wounds were irrigated and closed with 2-0 Vicryl in the fascia and the subcutaneous layer, kathy on the skin, 20 mL of 0.25% Marcaine with epinephrine is injected under all of the incisions. The wounds were washed with chlorhexidine and dried. Bactroban ointment, Xeroform gauze and sterile dressings were applied and with Betadine ointment, Xeroform gauze and sterile dressings were applied. Total estimated blood loss was up to 100 mL and there was no replacement. There were no drains or tubes. IMMEDIATE POSTOPERATIVE CONDITION: Good. [facility]# [id number]
[2016-10-24] MEDS ORDERED: ceFAZolin 1 GM in Sodium Chloride 0.9% 50 ML IV SCH (13:00)
[2016-10-24] MEDS ORDERED: Potassium Chloride 20 mEq ER Tab PO ONE (15:42)
--- NOTE | 2016-10-24 15:45 | General Progress Note ---
Subjective - Review of Systems Service Date: 10/24/16 Subjective: pt doing better afebrile no new complaints family was at the bedside Objective - Results Result Diagrams: 10/24/16 08:55 10/24/16 08:55 Recent Labs: Laboratory Last Values WBC 12.9 Th/cmm (4.8-10.8) H 10/24/16 08:55 RBC 3.83 Mil/cmm (3.80-5.20) 10/24/16 08:55 Hgb 11.9 gm/dL (11.7-16.1) 10/24/16 08:55 Hct 34.3 % (35.0-45.0) L 10/24/16 08:55 MCV 89.5 fl (81-100) 10/24/16 08:55 MCH 31.1 pg (27.0-31.0) H 10/24/16 08:55 MCHC Differential 34.7 pg (28.0-36.0) 10/24/16 08:55 RDW 11.6 % (11.5-20.0) 10/24/16 08:55 Plt Count 239 Th/cmm (150-400) 10/24/16 08:55 MPV 8.3 fl 10/24/16 08:55 Neutrophils % 78.6 % (40.0-80.0) 10/24/16 08:55 Band Neutrophils % 4 % (0-10) 10/23/16 05:00 Lymphocytes % 12.4 % (20.0-50.0) L 10/24/16 08:55 Monocytes % 5.7 % (2.0-10.0) 10/24/16 08:55 Eosinophils % 3.1 % (0.0-5.0) 10/24/16 08:55 Basophils % 0.2 % (0.0-2.0) 10/24/16 08:55 Neutrophils (Manual) 81 % (40-80) H 10/23/16 05:00 Lymphocytes 9 % (20-50) L 10/23/16 05:00 Monocytes 3 % (2-10) 10/23/16 05:00 Eosinophils 2 % (0-5) 10/23/16 05:00 PT 10.4 SECONDS (9.5-11.5) 10/23/16 05:00 INR 1.00 (0.5-1.4) 10/23/16 05:00 Sodium 128 mEq/L (136-145) L 10/24/16 08:55 Potassium 3.4 mEq/L (3.5-5.1) L 10/24/16 08:55 Chloride 96 mEq/L (98-107) L 10/24/16 08:55 Carbon Dioxide 27.1 mEq/L (21.0-31.0) 10/24/16 08:55 Anion Gap 8.3 (7.0-16.0) 10/24/16 08:55 BUN 6 mg/dL (7-25) L 10/24/16 08:55 Creatinine 0.3 mg/dL (0.6-1.2) L 10/24/16 08:55 Est GFR ( Amer) TNP 10/24/16 08:55 Est GFR (Non-Af Amer) TNP 10/24/16 08:55 BUN/Creatinine Ratio 20.0 10/24/16 08:55 Glucose 205 mg/dL (70-105) H 10/24/16 08:55 Hemoglobin A1c % 6.8 % (4.0-6.0) H 10/21/16 23:26 Whole Bld Lactic Acid 3.06 mmol/L (0.60-1.99) H* 10/22/16 01:30 Calcium 8.2 mg/dL (8.6-10.3) L 10/24/16 08:55 Total Bilirubin 0.6 mg/dL (0.3-1.0) 10/24/16 08:55 AST 13 U/L (13-39) 10/24/16 08:55 ALT 10 U/L (7-52) 10/24/16 08:55 Alkaline Phosphatase 102 U/L (34-104) 10/24/16 08:55 Total Protein 6.2 gm/dL (6.0-8.3) 10/24/16 08:55 Albumin 3.3 gm/dL (3.7-5.3) L 10/24/16 08:55 Globulin 2.9 gm/dL 10/24/16 08:55 Albumin/Globulin Ratio 1.1 (1.0-1.8) 10/24/16 08:55 Urine Source [place] 10/22/16 02:24 Urine Color YELLOW 10/22/16 02:24 Urine Clarity CLEAR (CLEAR) 10/22/16 02:24 Urine pH 7.0 (4.6 - 8.0) 10/22/16 02:24 Ur Specific [place] 1.010 (1.005-1.030) 10/22/16 02:24 Urine Protein NEGATIVE mg/dL (NEGATIVE) 10/22/16 02:24 Urine Glucose (UA) NEGATIVE mg/dL (NEGATIVE) 10/22/16 02:24 Urine Ketones NEGATIVE mg/dL (NEGATIVE) 10/22/16 02:24 Urine Blood SMALL (NEGATIVE) H 10/22/16 02:24 Urine Nitrate NEGATIVE (NEGATIVE) 10/22/16 02:24 Urine Bilirubin NEGATIVE (NEGATIVE) 10/22/16 02:24 Urine Urobilinogen 1.0 E.U./dL (0.2 - 1.0) 10/22/16 02:24 Ur Leukocyte Esterase NEGATIVE (NEGATIVE) 10/22/16 02:24 Urine RBC 5-10 /hpf (0-5) H 10/22/16 02:24 Urine WBC 0-2 /hpf (0-5) 10/22/16 02:24 Ur Epithelial Cells FEW /lpf (FEW) 10/22/16 02:24 Urine Bacteria FEW /hpf (NONE SEEN) 10/22/16 02:24 - Physical Exam Vitals and I&O: Vital Signs Temp 98.3 F 10/24/16 07:00 Pulse 76 10/24/16 15:29 Resp 18 10/24/16 15:29 BP 160/56 10/24/16 09:46 Pulse Ox 98 10/24/16 15:29 Intake & Output 10/23/16 10/24/16 10/24/16 18:59 06:59 18:59 Intake Total 1000 750 Output Total 1200 1000 Balance -200 -250 Weight (lbs) 61.235 kg 57.153 kg Intake: Intake, IV Amount 1000 150 D5-0.45NS 1,000 ml @ 80 1000 mls/hr IV .[id number] [facility] Rx #:[id number] cefTRIAXone 1 gm In 50 Sodium Chloride 0.9% 50 ml @ 100 mls/hr IV Q24HR [facility] Rx#:[id number] Oral 600 Output: Urine 1200 1000 Other: # Bowel Movements 0 Active Medications: Current Medications Acetaminophen/Hydrocodone Bitart ([place] 5mg/325mg) 1 tab PO Q6H PRN PRN Reason: Pain (Mild) Stop: 12/23/16 08:33 Amlodipine Besylate (Norvasc) 10 mg PO DAILY [facility] Stop: 12/21/16 20:14 Last Admin: 10/24/16 09:46 Dose: 10 mg Docusate Sodium (Colace) 100 mg PO DAILY PRN PRN Reason: Constipation Stop: 12/23/16 08:59 Enoxaparin Sodium (Lovenox) 40 mg SUBQ DAILY [facility] Stop: 12/21/16 08:59 Last Admin: 10/24/16 09:40 Dose: 40 mg Hydrochlorothiazide (Hctz) 25 mg PO DAILY [facility] Stop: 12/21/16 20:14 Last Admin: 10/24/16 09:37 Dose: 25 mg Cefazolin Sodium 1 gm/ Sodium (Chloride) 50 mls @ 100 mls/hr IV Q8HR [facility] Stop: 10/24/16 21:29 Ceftriaxone Sodium 1 gm/ (Sodium Chloride) 50 mls @ 100 mls/hr IV Q24HR [facility] Stop: 12/23/16 15:44 Lactobacillus Rhamnosus (Culturelle) 1 each PO DAILY [facility] Stop: 12/24/16 08:59 Magnesium Hydroxide (Milk Of Magnesia) 30 ml PO HS PRN PRN Reason: Constipation Stop: 12/23/16 08:43 Miscellaneous (Probiotic Screen) 1 ea MC PRN PRN PRN Reason: PROTOCOL Stop: 12/23/16 10:06 Morphine Sulfate (Morphine) 1 mg IVP Q2HR PRN PRN Reason: Severe Pain Stop: 12/23/16 08:32 Last Admin: 10/24/16 10:46 Dose: 1 mg Multivitamins/Vitamin C (Theragran) 1 tab PO DAILY [facility] Stop: 12/23/16 08:59 Last Admin: 10/24/16 09:44 Dose: 1 tab Ondansetron HCl (Zofran) 4 mg IV Q6H PRN PRN Reason: Nausea / Vomiting Stop: 12/21/16 02:40 Last Admin: 10/23/16 12:10 Dose: 4 mg Potassium Chloride (Klor-Con) 20 meq PO X1 ONE Stop: 10/24/16 15:43 Rivaroxaban (Xarelto) 10 mg PO DAILY [facility] Stop: 12/23/16 08:59 Last Admin: 10/24/16 09:44 Dose: 10 mg Cardiovascular: Regular rate Lungs: Clear to auscultation Abdomen: Soft, no Tender Assessment/Plan - Assessment Assessment: Left pelvic fracture UTI Hypokalemia HTN - Plan Plan: ORIF today Rocephine IV Fluids Morphine Lovenox Family was updated on pt's condition and plan of care PT/OT Nutritional Asmnt/Malnutr-PDOC - Dietary Evaluation Malnutrition Findings (Please click <Entered> for more info): Nutritional Asmnt/Malnutrition Start: 10/22/16 14: 16 Text: Status: Complete Freq: Document 10/22/16 14:17 GSUN (Rec: 10/22/16 14:35 [email or web address]) Nutritional Asmnt/Malnutrition Patient General Information Nutritional Screening High Risk Screening Diagnosis Reason for visit: left hip fracture Pertinent Medical Hx/Surgical Hx ER report: HTN, cataract surgery to left eye Subjective Information 81 year old female form home, English speaking. Spoke to pt and granddaughter at bedside who assisted with translations . Pt is unaware of elevated glucose levels. Pt usually with fiar appetite, sometimes skips dinner. RD explained importance of consistent meals and suggested CCHO diet to promote glycemic control, pt understood and agreed. UBW 140lb. Edentulous, pt reported no difficulties eating. No muscle fat wasting noted. Current Diet Order/ Nutrition Support Low sodium Pertinent Medications D5-0.45ns, Morphine, Zofran Pertinent Labs 10/21: potassium 2.9L, glucose 228H, A1c 6.8H Nutritional Hx/Data Height 1.47 m Height (Calculated Centimeters) 147.3 Current Weight (lbs) 61.825 kg Weight (Calculated Kilograms) 61.8 Weight (Calculated Grams) 53094.6 Usual body Weight (lbs) 140 [place] Body Weight 95 Recent Weight Change No Weight Status Overweight GI Symptoms Skin Integrity/Comment: Jaswinder 20. Skin intact. Estimated Nutritional Goals BEE in Kcals: Using Current wt Calories/Kcals/Kg CBW 136.3lb/62kg Kcals Calculated 1550-1860kcal (25-30kcal/kg) Protein: Using Current wt Protein Calculated 62g (1g/kg) Fluid: ml 1550-1860ml (1ml/kcal) Nutritional Problem 1. Problem Problem Altered nutrition related laboratory values related to Etiology unknown etiology aeb Signs/Symptoms: elevated glucose on adm 228, A1c 6.8 Intervention/Recommendation Comments 1. Recommend [address] to promote glycemic control. Expected Outcomes/Goals Expected Outcomes/Goals 1. PO intake to meet at least 75% of estimated nutritional needs.
[2016-10-24] MEDS: Hydrocodone/APAP 5mg/325mg Tab PO PRN (18:23)
--- NOTE | 2016-10-24 20:26 | General Progress Note ---
Subjective - Review of Systems Service Date: 10/24/16 Subjective: Minimum pain left hip - ORIF yesterday. Objective - Results Result Diagrams: 10/24/16 08:55 10/24/16 08:55 Recent Labs: Laboratory Last Values WBC 12.9 Th/cmm (4.8-10.8) H 10/24/16 08:55 RBC 3.83 Mil/cmm (3.80-5.20) 10/24/16 08:55 Hgb 11.9 gm/dL (11.7-16.1) 10/24/16 08:55 Hct 34.3 % (35.0-45.0) L 10/24/16 08:55 MCV 89.5 fl (81-100) 10/24/16 08:55 MCH 31.1 pg (27.0-31.0) H 10/24/16 08:55 MCHC Differential 34.7 pg (28.0-36.0) 10/24/16 08:55 RDW 11.6 % (11.5-20.0) 10/24/16 08:55 Plt Count 239 Th/cmm (150-400) 10/24/16 08:55 MPV 8.3 fl 10/24/16 08:55 Neutrophils % 78.6 % (40.0-80.0) 10/24/16 08:55 Band Neutrophils % 4 % (0-10) 10/23/16 05:00 Lymphocytes % 12.4 % (20.0-50.0) L 10/24/16 08:55 Monocytes % 5.7 % (2.0-10.0) 10/24/16 08:55 Eosinophils % 3.1 % (0.0-5.0) 10/24/16 08:55 Basophils % 0.2 % (0.0-2.0) 10/24/16 08:55 Neutrophils (Manual) 81 % (40-80) H 10/23/16 05:00 Lymphocytes 9 % (20-50) L 10/23/16 05:00 Monocytes 3 % (2-10) 10/23/16 05:00 Eosinophils 2 % (0-5) 10/23/16 05:00 PT 10.4 SECONDS (9.5-11.5) 10/23/16 05:00 INR 1.00 (0.5-1.4) 10/23/16 05:00 Sodium 128 mEq/L (136-145) L 10/24/16 08:55 Potassium 3.4 mEq/L (3.5-5.1) L 10/24/16 08:55 Chloride 96 mEq/L (98-107) L 10/24/16 08:55 Carbon Dioxide 27.1 mEq/L (21.0-31.0) 10/24/16 08:55 Anion Gap 8.3 (7.0-16.0) 10/24/16 08:55 BUN 6 mg/dL (7-25) L 10/24/16 08:55 Creatinine 0.3 mg/dL (0.6-1.2) L 10/24/16 08:55 Est GFR ( Amer) TNP 10/24/16 08:55 Est GFR (Non-Af Amer) TNP 10/24/16 08:55 BUN/Creatinine Ratio 20.0 10/24/16 08:55 Glucose 205 mg/dL (70-105) H 10/24/16 08:55 Hemoglobin A1c % 6.8 % (4.0-6.0) H 10/21/16 23:26 Whole Bld Lactic Acid 3.06 mmol/L (0.60-1.99) H* 10/22/16 01:30 Calcium 8.2 mg/dL (8.6-10.3) L 10/24/16 08:55 Total Bilirubin 0.6 mg/dL (0.3-1.0) 10/24/16 08:55 AST 13 U/L (13-39) 10/24/16 08:55 ALT 10 U/L (7-52) 10/24/16 08:55 Alkaline Phosphatase 102 U/L (34-104) 10/24/16 08:55 Total Protein 6.2 gm/dL (6.0-8.3) 10/24/16 08:55 Albumin 3.3 gm/dL (3.7-5.3) L 10/24/16 08:55 Globulin 2.9 gm/dL 10/24/16 08:55 Albumin/Globulin Ratio 1.1 (1.0-1.8) 10/24/16 08:55 Urine Source [place] 10/22/16 02:24 Urine Color YELLOW 10/22/16 02:24 Urine Clarity CLEAR (CLEAR) 10/22/16 02:24 Urine pH 7.0 (4.6 - 8.0) 10/22/16 02:24 Ur Specific [place] 1.010 (1.005-1.030) 10/22/16 02:24 Urine Protein NEGATIVE mg/dL (NEGATIVE) 10/22/16 02:24 Urine Glucose (UA) NEGATIVE mg/dL (NEGATIVE) 10/22/16 02:24 Urine Ketones NEGATIVE mg/dL (NEGATIVE) 10/22/16 02:24 Urine Blood SMALL (NEGATIVE) H 10/22/16 02:24 Urine Nitrate NEGATIVE (NEGATIVE) 10/22/16 02:24 Urine Bilirubin NEGATIVE (NEGATIVE) 10/22/16 02:24 Urine Urobilinogen 1.0 E.U./dL (0.2 - 1.0) 10/22/16 02:24 Ur Leukocyte Esterase NEGATIVE (NEGATIVE) 10/22/16 02:24 Urine RBC 5-10 /hpf (0-5) H 10/22/16 02:24 Urine WBC 0-2 /hpf (0-5) 10/22/16 02:24 Ur Epithelial Cells FEW /lpf (FEW) 10/22/16 02:24 Urine Bacteria FEW /hpf (NONE SEEN) 10/22/16 02:24 - Physical Exam Vitals and I&O: Vital Signs Temp 98.8 F 10/24/16 19:09 Pulse 98 10/24/16 19:09 Resp 18 10/24/16 19:09 BP 135/68 10/24/16 19:09 Pulse Ox 93 10/24/16 19:09 Intake & Output 10/24/16 10/24/16 10/25/16 06:59 18:59 06:59 Intake Total 750 410 Output Total 1000 800 Balance -250 -390 Weight (lbs) 57.153 kg 57.153 kg Intake: Intake, IV Amount 150 cefTRIAXone 1 gm In 50 Sodium Chloride 0.9% 50 ml @ 100 mls/hr IV Q24HR [facility] Rx#:[id number] Oral 600 360 Other 50 Output: Urine 1000 800 Stool 0 Other: # Bowel Movements 0 Stool Characteristics Soft Active Medications: Current Medications Acetaminophen/Hydrocodone Bitart ([place] 5mg/325mg) 1 tab PO Q6H PRN PRN Reason: Pain (Mild) Stop: 12/23/16 08:33 Last Admin: 10/24/16 18:23 Dose: 1 tab Amlodipine Besylate (Norvasc) 10 mg PO DAILY [facility] Stop: 12/21/16 20:14 Last Admin: 10/24/16 09:46 Dose: 10 mg Docusate Sodium (Colace) 100 mg PO DAILY PRN PRN Reason: Constipation Stop: 12/23/16 08:59 Enoxaparin Sodium (Lovenox) 40 mg SUBQ DAILY [facility] Stop: 12/21/16 08:59 Last Admin: 10/24/16 09:40 Dose: 40 mg Hydrochlorothiazide (Hctz) 25 mg PO DAILY [facility] Stop: 12/21/16 20:14 Last Admin: 10/24/16 09:37 Dose: 25 mg Ceftriaxone Sodium 1 gm/ (Sodium Chloride) 50 mls @ 100 mls/hr IV Q24HR [facility] Stop: 12/23/16 20:59 Lactobacillus Rhamnosus (Culturelle) 1 each PO DAILY [facility] Stop: 12/24/16 08:59 Magnesium Hydroxide (Milk Of Magnesia) 30 ml PO HS PRN PRN Reason: Constipation Stop: 12/23/16 08:43 Miscellaneous (Probiotic Screen) 1 ea MC PRN PRN PRN Reason: PROTOCOL Stop: 12/23/16 10:06 Morphine Sulfate (Morphine) 1 mg IVP Q2HR PRN PRN Reason: Severe Pain Stop: 12/23/16 08:32 Last Admin: 10/24/16 10:46 Dose: 1 mg Multivitamins/Vitamin C (Theragran) 1 tab PO DAILY [facility] Stop: 12/23/16 08:59 Last Admin: 10/24/16 09:44 Dose: 1 tab Ondansetron HCl (Zofran) 4 mg IV Q6H PRN PRN Reason: Nausea / Vomiting Stop: 12/21/16 02:40 Last Admin: 10/23/16 12:10 Dose: 4 mg Rivaroxaban (Xarelto) 10 mg PO DAILY [facility] Stop: 12/23/16 08:59 Last Admin: 10/24/16 09:44 Dose: 10 mg Cardiovascular: Regular rate Lungs: Clear to auscultation Abdomen: Soft, no Tender Nutritional Asmnt/Malnutr-PDOC - Dietary Evaluation Malnutrition Findings (Please click <Entered> for more info): Nutritional Asmnt/Malnutrition Start: 10/22/16 14: 16 Text: Status: Complete Freq: Document 10/22/16 14:17 ALYSSA (Rec: 10/22/16 14:35 [email or web address]) Nutritional Asmnt/Malnutrition Patient General Information Nutritional Screening High Risk Screening Diagnosis Reason for visit: left hip fracture Pertinent Medical Hx/Surgical Hx ER report: HTN, cataract surgery to left eye Subjective Information 81 year old female form home, [place]an speaking. Spoke to pt and granddaughter at bedside who assisted with translations . Pt is unaware of elevated glucose levels. Pt usually with fiar appetite, sometimes skips dinner. RD explained importance of consistent meals and suggested CCHO diet to promote glycemic control, pt understood and agreed. UBW 140lb. Edentulous, pt reported no difficulties eating. No muscle fat wasting noted. Current Diet Order/ Nutrition Support Low sodium Pertinent Medications D5-0.45ns, Morphine, Zofran Pertinent Labs 10/21: potassium 2.9L, glucose 228H, A1c 6.8H Nutritional Hx/Data Height 1.47 m Height (Calculated Centimeters) 147.3 Current Weight (lbs) 61.825 kg Weight (Calculated Kilograms) 61.8 Weight (Calculated Grams) 86942.6 Usual body Weight (lbs) 140 [place] Body Weight 95 Recent Weight Change No Weight Status Overweight GI Symptoms Skin Integrity/Comment: Jaswinder Loya. Skin intact. Estimated Nutritional Goals BEE in Kcals: Using Current wt Calories/Kcals/Kg CBW 136.3lb/62kg Kcals Calculated 1550-1860kcal (25-30kcal/kg) Protein: Using Current wt Protein Calculated 62g (1g/kg) Fluid: ml 1550-1860ml (1ml/kcal) Nutritional Problem 1. Problem Problem Altered nutrition related laboratory values related to Etiology unknown etiology aeb Signs/Symptoms: elevated glucose on adm 228, A1c 6.8 Intervention/Recommendation Comments 1. Recommend [id number] to promote glycemic control. Expected Outcomes/Goals Expected Outcomes/Goals 1. PO intake to meet at least 75% of estimated nutritional needs.
[2016-10-24] MEDS: cefTRIAXone 1 GM in Sodium Chloride 0.9% 50 ML IV SCH (20:35)
[2016-10-25] MEDS: Morphine Sulfate 2 mg/mL 1mL Syr IVP PRN (02:45)
[2016-10-25] MEDS: Hydrocodone/APAP 5mg/325mg Tab PO PRN ×3 (06:45→21:02)
[2016-10-25 07:42] LABS: ALB/GLOB RATIO 1.1 (1.0-1.8); ALKALINE PHOSPHATASE 93 U/L (34-104); ANION GAP 6.5 (7.0-16.0); BILIRUBIN,TOTAL 0.4 mg/dL (0.3-1.0); BUN - UREA NITROGEN 12 mg/dL (7-25); CALCIUM SERUM 8.3 mg/dL (8.6-10.3); CARBON DIOXIDE 29.7 mEq/L (21.0-31.0); CHLORIDE 90 mEq/L (98-107); CREATININE - SERUM 0.4 mg/dL (0.6-1.2); GLUCOSE 198 mg/dL (70-105); POTASSIUM SERUM 3.2 mEq/L (3.5-5.1); SGOT 10 U/L (13-39); SGPT/ALT 9 U/L (7-52); SODIUM SERUM 123 mEq/L (136-145)
[2016-10-25 08:02] LABS: % EOSINOPHILS 3.6 % (0.0-5.0); % LYMPHOCYTES 14.3 % (20.0-50.0); % MONOCYTES 7.8 % (2.0-10.0); % NEUTROPHILS 74.3 % (40.0-80.0); HEMATOCRIT 33.6 % (35.0-45.0); HEMOGLOBIN 11.3 gm/dL (11.7-16.1); MEAN CELL VOLUME 89.3 fl (81-100); MEAN CORPUSCULAR HGB CONC 33.6 pg (28.0-36.0); MEAN PLATELET VOLUME 8.3 fl; NEUTROPHILE ABSOLUTE 8.7 Th/cmm (1.8-8.0); PLATELET COUNT 234 Th/cmm (150-400); RED BLOOD COUNT 3.76 Mil/cmm (3.80-5.20); RED CELL DISTRIBUTION WIDTH 11.8 % (11.5-20.0); WHITE BLOOD COUNT 11.7 Th/cmm (4.8-10.8)
[2016-10-25] MEDS: Enoxaparin 40 mg/0.4 mL 0.4mL Syr SUBQ SCH (09:44)
[2016-10-25] MEDS: Lactobacillus Rhamnosus 10 Billion CFU Capsule PO SCH (09:44)
[2016-10-25] MEDS: Multivitamin Tab PO SCH (09:44)
[2016-10-25] MEDS ORDERED: Potassium Chloride 20 mEq ER Tab PO ONE (12:41)
--- NOTE | 2016-10-25 16:35 | Infectious Disease Prog Note ---
Infectious Disease Subjective - Review of Systems Service Date: 10/25/16 Events since last encounter: No new change. Subjective: No fever, no chills. No Infectious Disease Objective - Results Result Diagrams: 10/25/16 06:58 10/25/16 06:58 Recent Labs: Laboratory Last Values WBC 11.7 Th/cmm (4.8-10.8) H 10/25/16 06:58 RBC 3.76 Mil/cmm (3.80-5.20) L 10/25/16 06:58 Hgb 11.3 gm/dL (11.7-16.1) L 10/25/16 06:58 Hct 33.6 % (35.0-45.0) L 10/25/16 06:58 MCV 89.3 fl (81-100) 10/25/16 06:58 MCH 30.0 pg (27.0-31.0) 10/25/16 06:58 MCHC Differential 33.6 pg (28.0-36.0) 10/25/16 06:58 RDW 11.8 % (11.5-20.0) 10/25/16 06:58 Plt Count 234 Th/cmm (150-400) 10/25/16 06:58 MPV 8.3 fl 10/25/16 06:58 Neutrophils % 74.3 % (40.0-80.0) 10/25/16 06:58 Band Neutrophils % 4 % (0-10) 10/23/16 05:00 Lymphocytes % 14.3 % (20.0-50.0) L 10/25/16 06:58 Monocytes % 7.8 % (2.0-10.0) 10/25/16 06:58 Eosinophils % 3.6 % (0.0-5.0) 10/25/16 06:58 Basophils % 0.0 % (0.0-2.0) 10/25/16 06:58 Neutrophils (Manual) 81 % (40-80) H 10/23/16 05:00 Lymphocytes 9 % (20-50) L 10/23/16 05:00 Monocytes 3 % (2-10) 10/23/16 05:00 Eosinophils 2 % (0-5) 10/23/16 05:00 PT 10.4 SECONDS (9.5-11.5) 10/23/16 05:00 INR 1.00 (0.5-1.4) 10/23/16 05:00 Sodium 123 mEq/L (136-145) L 10/25/16 06:58 Potassium 3.2 mEq/L (3.5-5.1) L 10/25/16 06:58 Chloride 90 mEq/L (98-107) L 10/25/16 06:58 Carbon Dioxide 29.7 mEq/L (21.0-31.0) 10/25/16 06:58 Anion Gap 6.5 (7.0-16.0) L 10/25/16 06:58 BUN 12 mg/dL (7-25) 10/25/16 06:58 Creatinine 0.4 mg/dL (0.6-1.2) L 10/25/16 06:58 Est GFR ( Amer) TNP 10/25/16 06:58 Est GFR (Non-Af Amer) TNP 10/25/16 06:58 BUN/Creatinine Ratio 30.0 10/25/16 06:58 Glucose 198 mg/dL (70-105) H 10/25/16 06:58 Hemoglobin A1c % 6.8 % (4.0-6.0) H 10/21/16 23:26 Whole Bld Lactic Acid 3.06 mmol/L (0.60-1.99) H* 10/22/16 01:30 Calcium 8.3 mg/dL (8.6-10.3) L 10/25/16 06:58 Total Bilirubin 0.4 mg/dL (0.3-1.0) 10/25/16 06:58 AST 10 U/L (13-39) L 10/25/16 06:58 ALT 9 U/L (7-52) 10/25/16 06:58 Alkaline Phosphatase 93 U/L (34-104) 10/25/16 06:58 Total Protein 6.2 gm/dL (6.0-8.3) 10/25/16 06:58 Albumin 3.2 gm/dL (3.7-5.3) L 10/25/16 06:58 Globulin 3.0 gm/dL 10/25/16 06:58 Albumin/Globulin Ratio 1.1 (1.0-1.8) 10/25/16 06:58 Urine Source [place] 10/22/16 02:24 Urine Color YELLOW 10/22/16 02:24 Urine Clarity CLEAR (CLEAR) 10/22/16 02:24 Urine pH 7.0 (4.6 - 8.0) 10/22/16 02:24 Ur Specific [place] 1.010 (1.005-1.030) 10/22/16 02:24 Urine Protein NEGATIVE mg/dL (NEGATIVE) 10/22/16 02:24 Urine Glucose (UA) NEGATIVE mg/dL (NEGATIVE) 10/22/16 02:24 Urine Ketones NEGATIVE mg/dL (NEGATIVE) 10/22/16 02:24 Urine Blood SMALL (NEGATIVE) H 10/22/16 02:24 Urine Nitrate NEGATIVE (NEGATIVE) 10/22/16 02:24 Urine Bilirubin NEGATIVE (NEGATIVE) 10/22/16 02:24 Urine Urobilinogen 1.0 E.U./dL (0.2 - 1.0) 10/22/16 02:24 Ur Leukocyte Esterase NEGATIVE (NEGATIVE) 10/22/16 02:24 Urine RBC 5-10 /hpf (0-5) H 10/22/16 02:24 Urine WBC 0-2 /hpf (0-5) 10/22/16 02:24 Ur Epithelial Cells FEW /lpf (FEW) 10/22/16 02:24 Urine Bacteria FEW /hpf (NONE SEEN) 10/22/16 02:24 - Physical Exam Vitals and I&O: Vital Signs Temp 97.7 F 10/25/16 13:00 Pulse 74 10/25/16 13:00 Resp 18 10/25/16 13:00 BP 142/65 10/25/16 13:00 Pulse Ox 97 10/25/16 09:00 Intake & Output 10/24/16 10/25/16 10/25/16 18:59 06:59 18:59 Intake Total 410 120 Output Total 800 1100 Balance -390 -980 Weight (lbs) 57.153 kg 74.843 kg 74.843 kg Intake: Oral 360 120 Other 50 Output: Urine 800 1100 Stool 0 Other: Stool Characteristics Soft Active Medications: Current Medications Acetaminophen/Hydrocodone Bitart ([place] 5mg/325mg) 1 tab PO Q6H PRN PRN Reason: Pain (Mild) Stop: 12/23/16 08:33 Last Admin: 10/25/16 12:46 Dose: 1 tab Amlodipine Besylate (Norvasc) 10 mg PO DAILY [facility] Stop: 12/21/16 20:14 Last Admin: 10/25/16 09:44 Dose: 10 mg Docusate Sodium (Colace) 100 mg PO DAILY PRN PRN Reason: Constipation Stop: 12/23/16 08:59 Enoxaparin Sodium (Lovenox) 40 mg SUBQ DAILY [facility] Stop: 12/21/16 08:59 Last Admin: 10/25/16 09:44 Dose: 40 mg Hydrochlorothiazide (Hctz) 25 mg PO DAILY [facility] Stop: 12/21/16 20:14 Last Admin: 10/25/16 09:43 Dose: 25 mg Ceftriaxone Sodium 1 gm/ (Sodium Chloride) 50 mls @ 100 mls/hr IV Q24HR [facility] Stop: 12/23/16 20:59 Last Admin: 10/24/16 20:35 Dose: 100 mls/hr Lactobacillus Rhamnosus (Culturelle) 1 each PO DAILY [facility] Stop: 12/24/16 08:59 Last Admin: 10/25/16 09:44 Dose: 1 each Magnesium Hydroxide (Milk Of Magnesia) 30 ml PO HS PRN PRN Reason: Constipation Stop: 12/23/16 08:43 Miscellaneous (Probiotic Screen) 1 ea MC PRN PRN PRN Reason: PROTOCOL Stop: 12/23/16 10:06 Morphine Sulfate (Morphine) 1 mg IVP Q2HR PRN PRN Reason: Severe Pain Stop: 12/23/16 08:32 Last Admin: 10/25/16 02:45 Dose: 1 mg Multivitamins/Vitamin C (Theragran) 1 tab PO DAILY [facility] Stop: 12/23/16 08:59 Last Admin: 10/25/16 09:44 Dose: 1 tab Ondansetron HCl (Zofran) 4 mg IV Q6H PRN PRN Reason: Nausea / Vomiting Stop: 12/21/16 02:40 Last Admin: 10/23/16 12:10 Dose: 4 mg Rivaroxaban (Xarelto) 10 mg PO DAILY [facility] Stop: 12/23/16 08:59 Last Admin: 10/25/16 09:43 Dose: 10 mg General: no acute distress, well developed, well nourished HEENT: atraumatic, normocephalic, PERRLA, EOMI Neck: supple, no thyromegaly, no lymphadenopathy, no rigid Cardiovascular: S1S2, regular Lungs: clear to auscultation bilaterally, clear to percussion Abdomen: soft, no tender, no distended, no hepatomegaly, no splenomegaly, no drain Extremities: other (left hip surgical incision wound, intact), no cyanosis, no clubbing, no edema Neurological: awake, alert, oriented Skin: intact Infectious Disease Assmt/Plan - Assessment Assessment: 1. Leukocytosis, likely reactive. 2. left hip fracture. 3. ORIF OF LEFT HIP. 4. Hypertension. - Plan Plan: Continue Rocephin for 1 or 2 days. Nutritional Asmnt/Malnutr-PDOC - Dietary Evaluation Malnutrition Findings (Please click <Entered> for more info): Nutritional Asmnt/Malnutrition Start: 10/22/16 14: 16 Text: Status: Complete Freq: Document 10/22/16 14:17 GSUN (Rec: 10/22/16 14:35 GSUN MAINOR-FN) Nutritional Asmnt/Malnutrition Patient General Information Nutritional Screening High Risk Screening Diagnosis Reason for visit: left hip fracture Pertinent Medical Hx/Surgical Hx ER report: HTN, cataract surgery to left eye Subjective Information 81 year old female form home, Micronesian speaking. Spoke to pt and granddaughter at bedside who assisted with translations . Pt is unaware of elevated glucose levels. Pt usually with fiar appetite, sometimes skips dinner. RD explained importance of consistent meals and suggested CCHO diet to promote glycemic control, pt understood and agreed. UBW 140lb. Edentulous, pt reported no difficulties eating. No muscle fat wasting noted. Current Diet Order/ Nutrition Support Low sodium Pertinent Medications D5-0.45ns, Morphine, Zofran Pertinent Labs 10/21: potassium 2.9L, glucose 228H, A1c 6.8H Nutritional Hx/Data Height 1.47 m Height (Calculated Centimeters) 147.3 Current Weight (lbs) 61.825 kg Weight (Calculated Kilograms) 61.8 Weight (Calculated Grams) 50537.6 Usual body Weight (lbs) 140 [place] Body Weight 95 Recent Weight Change No Weight Status Overweight GI Symptoms Skin Integrity/Comment: Jaswinder 20. Skin intact. Estimated Nutritional Goals BEE in Kcals: Using Current wt Calories/Kcals/Kg CBW 136.3lb/62kg Kcals Calculated 1550-1860kcal (25-30kcal/kg) Protein: Using Current wt Protein Calculated 62g (1g/kg) Fluid: ml 1550-1860ml (1ml/kcal) Nutritional Problem 1. Problem Problem Altered nutrition related laboratory values related to Etiology unknown etiology aeb Signs/Symptoms: elevated glucose on adm 228, A1c 6.8 Intervention/Recommendation Comments 1. Recommend [address] to promote glycemic control. Expected Outcomes/Goals Expected Outcomes/Goals 1. PO intake to meet at least 75% of estimated nutritional needs.
--- NOTE | 2016-10-25 20:28 | General Progress Note ---
Subjective - Review of Systems Service Date: 10/25/16 Subjective: pt doing better afebrile no new complaints family was at the bedside Objective - Results Result Diagrams: 10/25/16 06:58 10/25/16 06:58 Recent Labs: Laboratory Last Values WBC 11.7 Th/cmm (4.8-10.8) H 10/25/16 06:58 RBC 3.76 Mil/cmm (3.80-5.20) L 10/25/16 06:58 Hgb 11.3 gm/dL (11.7-16.1) L 10/25/16 06:58 Hct 33.6 % (35.0-45.0) L 10/25/16 06:58 MCV 89.3 fl (81-100) 10/25/16 06:58 MCH 30.0 pg (27.0-31.0) 10/25/16 06:58 MCHC Differential 33.6 pg (28.0-36.0) 10/25/16 06:58 RDW 11.8 % (11.5-20.0) 10/25/16 06:58 Plt Count 234 Th/cmm (150-400) 10/25/16 06:58 MPV 8.3 fl 10/25/16 06:58 Neutrophils % 74.3 % (40.0-80.0) 10/25/16 06:58 Band Neutrophils % 4 % (0-10) 10/23/16 05:00 Lymphocytes % 14.3 % (20.0-50.0) L 10/25/16 06:58 Monocytes % 7.8 % (2.0-10.0) 10/25/16 06:58 Eosinophils % 3.6 % (0.0-5.0) 10/25/16 06:58 Basophils % 0.0 % (0.0-2.0) 10/25/16 06:58 Neutrophils (Manual) 81 % (40-80) H 10/23/16 05:00 Lymphocytes 9 % (20-50) L 10/23/16 05:00 Monocytes 3 % (2-10) 10/23/16 05:00 Eosinophils 2 % (0-5) 10/23/16 05:00 PT 10.4 SECONDS (9.5-11.5) 10/23/16 05:00 INR 1.00 (0.5-1.4) 10/23/16 05:00 Sodium 123 mEq/L (136-145) L 10/25/16 06:58 Potassium 3.2 mEq/L (3.5-5.1) L 10/25/16 06:58 Chloride 90 mEq/L (98-107) L 10/25/16 06:58 Carbon Dioxide 29.7 mEq/L (21.0-31.0) 10/25/16 06:58 Anion Gap 6.5 (7.0-16.0) L 10/25/16 06:58 BUN 12 mg/dL (7-25) 10/25/16 06:58 Creatinine 0.4 mg/dL (0.6-1.2) L 10/25/16 06:58 Est GFR ( Amer) TNP 10/25/16 06:58 Est GFR (Non-Af Amer) TNP 10/25/16 06:58 BUN/Creatinine Ratio 30.0 10/25/16 06:58 Glucose 198 mg/dL (70-105) H 10/25/16 06:58 Hemoglobin A1c % 6.8 % (4.0-6.0) H 10/21/16 23:26 Whole Bld Lactic Acid 3.06 mmol/L (0.60-1.99) H* 10/22/16 01:30 Calcium 8.3 mg/dL (8.6-10.3) L 10/25/16 06:58 Total Bilirubin 0.4 mg/dL (0.3-1.0) 10/25/16 06:58 AST 10 U/L (13-39) L 10/25/16 06:58 ALT 9 U/L (7-52) 10/25/16 06:58 Alkaline Phosphatase 93 U/L (34-104) 10/25/16 06:58 Total Protein 6.2 gm/dL (6.0-8.3) 10/25/16 06:58 Albumin 3.2 gm/dL (3.7-5.3) L 10/25/16 06:58 Globulin 3.0 gm/dL 10/25/16 06:58 Albumin/Globulin Ratio 1.1 (1.0-1.8) 10/25/16 06:58 Urine Source [place] 10/22/16 02:24 Urine Color YELLOW 10/22/16 02:24 Urine Clarity CLEAR (CLEAR) 10/22/16 02:24 Urine pH 7.0 (4.6 - 8.0) 10/22/16 02:24 Ur Specific [place] 1.010 (1.005-1.030) 10/22/16 02:24 Urine Protein NEGATIVE mg/dL (NEGATIVE) 10/22/16 02:24 Urine Glucose (UA) NEGATIVE mg/dL (NEGATIVE) 10/22/16 02:24 Urine Ketones NEGATIVE mg/dL (NEGATIVE) 10/22/16 02:24 Urine Blood SMALL (NEGATIVE) H 10/22/16 02:24 Urine Nitrate NEGATIVE (NEGATIVE) 10/22/16 02:24 Urine Bilirubin NEGATIVE (NEGATIVE) 10/22/16 02:24 Urine Urobilinogen 1.0 E.U./dL (0.2 - 1.0) 10/22/16 02:24 Ur Leukocyte Esterase NEGATIVE (NEGATIVE) 10/22/16 02:24 Urine RBC 5-10 /hpf (0-5) H 10/22/16 02:24 Urine WBC 0-2 /hpf (0-5) 10/22/16 02:24 Ur Epithelial Cells FEW /lpf (FEW) 10/22/16 02:24 Urine Bacteria FEW /hpf (NONE SEEN) 10/22/16 02:24 - Physical Exam Vitals and I&O: Vital Signs Temp 98.4 F 10/25/16 16:00 Pulse 77 10/25/16 16:00 Resp 18 10/25/16 16:00 BP 146/67 10/25/16 16:00 Pulse Ox 95 10/25/16 16:00 Intake & Output 10/25/16 10/25/16 10/26/16 06:59 18:59 06:59 Intake Total 120 480 Output Total 1100 Balance -980 480 Weight (lbs) 74.843 kg 74.843 kg 74.843 kg Intake: Oral 120 480 Output: Urine 1100 Other: # Voids 3 # Bowel Movements 0 Active Medications: Current Medications Acetaminophen/Hydrocodone Bitart ([place] 5mg/325mg) 1 tab PO Q6H PRN PRN Reason: Pain (Mild) Stop: 12/23/16 08:33 Last Admin: 10/25/16 12:46 Dose: 1 tab Amlodipine Besylate (Norvasc) 10 mg PO DAILY [facility] Stop: 12/21/16 20:14 Last Admin: 10/25/16 09:44 Dose: 10 mg Docusate Sodium (Colace) 100 mg PO DAILY PRN PRN Reason: Constipation Stop: 12/23/16 08:59 Hydrochlorothiazide (Hctz) 25 mg PO DAILY [facility] Stop: 12/21/16 20:14 Last Admin: 10/25/16 09:43 Dose: 25 mg Ceftriaxone Sodium 1 gm/ (Sodium Chloride) 50 mls @ 100 mls/hr IV Q24HR [facility] Stop: 12/23/16 20:59 Last Admin: 10/24/16 20:35 Dose: 100 mls/hr Lactobacillus Rhamnosus (Culturelle) 1 each PO DAILY [facility] Stop: 12/24/16 08:59 Last Admin: 10/25/16 09:44 Dose: 1 each Magnesium Hydroxide (Milk Of Magnesia) 30 ml PO HS PRN PRN Reason: Constipation Stop: 12/23/16 08:43 Miscellaneous (Probiotic Screen) 1 ea MC PRN PRN PRN Reason: PROTOCOL Stop: 12/23/16 10:06 Morphine Sulfate (Morphine) 1 mg IVP Q2HR PRN PRN Reason: Severe Pain Stop: 12/23/16 08:32 Last Admin: 10/25/16 02:45 Dose: 1 mg Multivitamins/Vitamin C (Theragran) 1 tab PO DAILY [facility] Stop: 12/23/16 08:59 Last Admin: 10/25/16 09:44 Dose: 1 tab Ondansetron HCl (Zofran) 4 mg IV Q6H PRN PRN Reason: Nausea / Vomiting Stop: 12/21/16 02:40 Last Admin: 10/23/16 12:10 Dose: 4 mg Rivaroxaban (Xarelto) 10 mg PO DAILY [facility] Stop: 12/23/16 08:59 Last Admin: 10/25/16 09:43 Dose: 10 mg Cardiovascular: Regular rate Lungs: Clear to auscultation Abdomen: Soft, no Tender Extremities: Other (no edema) Assessment/Plan - Assessment Assessment: Left pelvic fracture UTI Hypokalemia HTN Leucocytosis - Plan Plan: s/p ORIF Rocephine IV Fluids Morphine Lovenox dc'd xarelto started Family was updated on pt's condition and plan of care PT/OT SNIF DC planing Nutritional Asmnt/Malnutr-PDOC - Dietary Evaluation Malnutrition Findings (Please click <Entered> for more info): Nutritional Asmnt/Malnutrition Start: 10/22/16 14: 16 Text: Status: Complete Freq: Document 10/22/16 14:17 [email or web address] (Rec: 10/22/16 14:35 [email or web address]) Nutritional Asmnt/Malnutrition Patient General Information Nutritional Screening High Risk Screening Diagnosis Reason for visit: left hip fracture Pertinent Medical Hx/Surgical Hx ER report: HTN, cataract surgery to left eye Subjective Information 81 year old female form home, [place] speaking. Spoke to pt and granddaughter at bedside who assisted with translations . Pt is unaware of elevated glucose levels. Pt usually with fiar appetite, sometimes skips dinner. RD explained importance of consistent meals and suggested CCHO diet to promote glycemic control, pt understood and agreed. UBW 140lb. Edentulous, pt reported no difficulties eating. No muscle fat wasting noted. Current Diet Order/ Nutrition Support Low sodium Pertinent Medications D5-0.45ns, Morphine, Zofran Pertinent Labs 10/21: potassium 2.9L, glucose 228H, A1c 6.8H Nutritional Hx/Data Height 1.47 m Height (Calculated Centimeters) 147.3 Current Weight (lbs) 61.825 kg Weight (Calculated Kilograms) 61.8 Weight (Calculated Grams) 39792.6 Usual body Weight (lbs) 140 [place] Body Weight 95 Recent Weight Change No Weight Status Overweight GI Symptoms Skin Integrity/Comment: Jaswinder 20. Skin intact. Estimated Nutritional Goals BEE in Kcals: Using Current wt Calories/Kcals/Kg CBW 136.3lb/62kg Kcals Calculated 1550-1860kcal (25-30kcal/kg) Protein: Using Current wt Protein Calculated 62g (1g/kg) Fluid: ml 1550-1860ml (1ml/kcal) Nutritional Problem 1. Problem Problem Altered nutrition related laboratory values related to Etiology unknown etiology aeb Signs/Symptoms: elevated glucose on adm 228, A1c 6.8 Intervention/Recommendation Comments 1. Recommend [id number] to promote glycemic control. Expected Outcomes/Goals Expected Outcomes/Goals 1. PO intake to meet at least 75% of estimated nutritional needs.
[2016-10-25] MEDS: cefTRIAXone 1 GM in Sodium Chloride 0.9% 50 ML IV SCH (21:00)
[2016-10-26] MEDS: Morphine Sulfate 2 mg/mL 1mL Syr IVP PRN ×2 (03:11→18:24)
[2016-10-26] MEDS: Hydrocodone/APAP 5mg/325mg Tab PO PRN (05:44)
[2016-10-26 06:08] LABS: % BASOPHILS 0.3 % (0.0-2.0); % EOSINOPHILS 5.2 % (0.0-5.0); % LYMPHOCYTES 21.2 % (20.0-50.0); % MONOCYTES 8.1 % (2.0-10.0); % NEUTROPHILS 65.2 % (40.0-80.0); HEMOGLOBIN 11.2 gm/dL (11.7-16.1); MEAN CELL VOLUME 89.7 fl (81-100); MEAN CORPUSCULAR HEMOGLOBIN 30.6 pg (27.0-31.0); MEAN CORPUSCULAR HGB CONC 34.1 pg (28.0-36.0); MEAN PLATELET VOLUME 8.2 fl; NEUTROPHILE ABSOLUTE 6.9 Th/cmm (1.8-8.0); PLATELET COUNT 280 Th/cmm (150-400); RED BLOOD COUNT 3.68 Mil/cmm (3.80-5.20); RED CELL DISTRIBUTION WIDTH 11.8 % (11.5-20.0); WHITE BLOOD COUNT 10.5 Th/cmm (4.8-10.8)
[2016-10-26 06:41] LABS: BUN - UREA NITROGEN 14 mg/dL (7-25); CALCIUM SERUM 8.5 mg/dL (8.6-10.3); CARBON DIOXIDE 30.6 mEq/L (21.0-31.0); CHLORIDE 94 mEq/L (98-107); CREATININE - SERUM 0.4 mg/dL (0.6-1.2); GLUCOSE 142 mg/dL (70-105); POTASSIUM SERUM 3.6 mEq/L (3.5-5.1); SODIUM SERUM 130 mEq/L (136-145)
[2016-10-26] MEDS: Lactobacillus Rhamnosus 10 Billion CFU Capsule PO SCH (08:27)
[2016-10-26] MEDS: Multivitamin Tab PO SCH (08:27)
--- NOTE | 2016-10-26 15:00 | Infectious Disease Prog Note ---
Infectious Disease Subjective - Review of Systems Service Date: 10/26/16 Subjective: No fever, no chills. No new change Infectious Disease Objective - Results Result Diagrams: 10/26/16 05:37 10/26/16 05:37 Recent Labs: Laboratory Last Values WBC 10.5 Th/cmm (4.8-10.8) 10/26/16 05:37 RBC 3.68 Mil/cmm (3.80-5.20) L 10/26/16 05:37 Hgb 11.2 gm/dL (11.7-16.1) L 10/26/16 05:37 Hct 33.0 % (35.0-45.0) L 10/26/16 05:37 MCV 89.7 fl (81-100) 10/26/16 05:37 MCH 30.6 pg (27.0-31.0) 10/26/16 05:37 MCHC Differential 34.1 pg (28.0-36.0) 10/26/16 05:37 RDW 11.8 % (11.5-20.0) 10/26/16 05:37 Plt Count 280 Th/cmm (150-400) 10/26/16 05:37 MPV 8.2 fl 10/26/16 05:37 Neutrophils % 65.2 % (40.0-80.0) 10/26/16 05:37 Band Neutrophils % 4 % (0-10) 10/23/16 05:00 Lymphocytes % 21.2 % (20.0-50.0) 10/26/16 05:37 Monocytes % 8.1 % (2.0-10.0) 10/26/16 05:37 Eosinophils % 5.2 % (0.0-5.0) H 10/26/16 05:37 Basophils % 0.3 % (0.0-2.0) 10/26/16 05:37 Neutrophils (Manual) 81 % (40-80) H 10/23/16 05:00 Lymphocytes 9 % (20-50) L 10/23/16 05:00 Monocytes 3 % (2-10) 10/23/16 05:00 Eosinophils 2 % (0-5) 10/23/16 05:00 PT 10.4 SECONDS (9.5-11.5) 10/23/16 05:00 INR 1.00 (0.5-1.4) 10/23/16 05:00 Sodium 130 mEq/L (136-145) L 10/26/16 05:37 Potassium 3.6 mEq/L (3.5-5.1) 10/26/16 05:37 Chloride 94 mEq/L (98-107) L 10/26/16 05:37 Carbon Dioxide 30.6 mEq/L (21.0-31.0) 10/26/16 05:37 Anion Gap 9.0 (7.0-16.0) 10/26/16 05:37 BUN 14 mg/dL (7-25) 10/26/16 05:37 Creatinine 0.4 mg/dL (0.6-1.2) L 10/26/16 05:37 Est GFR ( Amer) TNP 10/26/16 05:37 Est GFR (Non-Af Amer) TNP 10/26/16 05:37 BUN/Creatinine Ratio 35.0 10/26/16 05:37 Glucose 142 mg/dL (70-105) H 10/26/16 05:37 POC Glucose 149 MG/DL (70-105) H 10/23/16 14:52 Hemoglobin A1c % 6.8 % (4.0-6.0) H 10/21/16 23:26 Whole Bld Lactic Acid 3.06 mmol/L (0.60-1.99) H* 10/22/16 01:30 Calcium 8.5 mg/dL (8.6-10.3) L 10/26/16 05:37 Total Bilirubin 0.4 mg/dL (0.3-1.0) 10/25/16 06:58 AST 10 U/L (13-39) L 10/25/16 06:58 ALT 9 U/L (7-52) 10/25/16 06:58 Alkaline Phosphatase 93 U/L (34-104) 10/25/16 06:58 Total Protein 6.2 gm/dL (6.0-8.3) 10/25/16 06:58 Albumin 3.2 gm/dL (3.7-5.3) L 10/25/16 06:58 Globulin 3.0 gm/dL 10/25/16 06:58 Albumin/Globulin Ratio 1.1 (1.0-1.8) 10/25/16 06:58 Urine Source [place] 10/22/16 02:24 Urine Color YELLOW 10/22/16 02:24 Urine Clarity CLEAR (CLEAR) 10/22/16 02:24 Urine pH 7.0 (4.6 - 8.0) 10/22/16 02:24 Ur Specific [place] 1.010 (1.005-1.030) 10/22/16 02:24 Urine Protein NEGATIVE mg/dL (NEGATIVE) 10/22/16 02:24 Urine Glucose (UA) NEGATIVE mg/dL (NEGATIVE) 10/22/16 02:24 Urine Ketones NEGATIVE mg/dL (NEGATIVE) 10/22/16 02:24 Urine Blood SMALL (NEGATIVE) H 10/22/16 02:24 Urine Nitrate NEGATIVE (NEGATIVE) 10/22/16 02:24 Urine Bilirubin NEGATIVE (NEGATIVE) 10/22/16 02:24 Urine Urobilinogen 1.0 E.U./dL (0.2 - 1.0) 10/22/16 02:24 Ur Leukocyte Esterase NEGATIVE (NEGATIVE) 10/22/16 02:24 Urine RBC 5-10 /hpf (0-5) H 10/22/16 02:24 Urine WBC 0-2 /hpf (0-5) 10/22/16 02:24 Ur Epithelial Cells FEW /lpf (FEW) 10/22/16 02:24 Urine Bacteria FEW /hpf (NONE SEEN) 10/22/16 02:24 - Physical Exam Vitals and I&O: Vital Signs Temp 99 F 10/26/16 12:45 Pulse 81 10/26/16 12:45 Resp 17 10/26/16 12:45 BP 125/61 10/26/16 12:45 Pulse Ox 99 10/26/16 12:45 Intake & Output 10/25/16 10/26/16 10/26/16 18:59 06:59 18:59 Intake Total 480 500 Balance 480 500 Weight (lbs) 74.843 kg 75.387 kg 75.296 kg Intake: Oral 480 500 Other: # Voids 3 2 # Bowel Movements 0 Active Medications: Current Medications Acetaminophen/Hydrocodone Bitart ([place] 5mg/325mg) 1 tab PO Q6H PRN PRN Reason: Pain (Mild) Stop: 12/23/16 08:33 Last Admin: 10/26/16 05:44 Dose: 1 tab Amlodipine Besylate (Norvasc) 10 mg PO DAILY [facility] Stop: 12/21/16 20:14 Last Admin: 10/26/16 08:27 Dose: 10 mg Docusate Sodium (Colace) 100 mg PO DAILY PRN PRN Reason: Constipation Stop: 12/23/16 08:59 Last Admin: 10/25/16 21:03 Dose: 100 mg Hydrochlorothiazide (Hctz) 25 mg PO DAILY [facility] Stop: 12/21/16 20:14 Last Admin: 10/26/16 08:26 Dose: 25 mg Lactobacillus Rhamnosus (Culturelle) 1 each PO DAILY [facility] Stop: 12/24/16 08:59 Last Admin: 10/26/16 08:27 Dose: 1 each Magnesium Hydroxide (Milk Of Magnesia) 30 ml PO HS PRN PRN Reason: Constipation Stop: 12/23/16 08:43 Miscellaneous (Probiotic Screen) 1 ea MC PRN PRN PRN Reason: PROTOCOL Stop: 12/23/16 10:06 Morphine Sulfate (Morphine) 1 mg IVP Q2HR PRN PRN Reason: Severe Pain Stop: 12/23/16 08:32 Last Admin: 10/26/16 03:11 Dose: 1 mg Multivitamins/Vitamin C (Theragran) 1 tab PO DAILY [facility] Stop: 12/23/16 08:59 Last Admin: 10/26/16 08:27 Dose: 1 tab Ondansetron HCl (Zofran) 4 mg IV Q6H PRN PRN Reason: Nausea / Vomiting Stop: 12/21/16 02:40 Last Admin: 10/23/16 12:10 Dose: 4 mg Rivaroxaban (Xarelto) 10 mg PO DAILY [facility] Stop: 12/23/16 08:59 Last Admin: 10/26/16 08:27 Dose: 10 mg General: no acute distress, well developed, well nourished HEENT: atraumatic, normocephalic, EOMI Neck: supple, no thyromegaly, no rigid Cardiovascular: S1S2, regular Lungs: clear to auscultation bilaterally, clear to percussion Abdomen: soft, bowel sounds, no tender, no distended Extremities: other (left hip surgical incision wound.), no cyanosis, no clubbing , no edema Neurological: awake, alert, oriented, CN 2-12 intact Skin: intact - Procedures Procedures: Procedures Procedure Code Date REPOSITION LEFT UPPER FEMUR WITH INT FIX, OPEN APPROACH [id number] 10/22/16 TREAT THIGH FRACTURE 27561 10/22/16 Infectious Disease Assmt/Plan - Assessment Assessment: 1. Leukocytosis, likely reactive. 2. left hip fracture. 3. ORIF OF LEFT HIP. 4. Hypertension. - Plan Plan: Discontinue Rocephin. Nutritional Asmnt/Malnutr-PDOC - Dietary Evaluation Malnutrition Findings (Please click <Entered> for more info): Nutritional Asmnt/Malnutrition Start: 10/22/16 14: 16 Text: Status: Complete Freq: Document 10/22/16 14:17 GSUN (Rec: 10/22/16 14:35 GSUN MAINOR-FN) Nutritional Asmnt/Malnutrition Patient General Information Nutritional Screening High Risk Screening Diagnosis Reason for visit: left hip fracture Pertinent Medical Hx/Surgical Hx ER report: HTN, cataract surgery to left eye Subjective Information 81 year old female form home, Stateless speaking. Spoke to pt and granddaughter at bedside who assisted with translations . Pt is unaware of elevated glucose levels. Pt usually with fiar appetite, sometimes skips dinner. RD explained importance of consistent meals and suggested CCHO diet to promote glycemic control, pt understood and agreed. UBW 140lb. Edentulous, pt reported no difficulties eating. No muscle fat wasting noted. Current Diet Order/ Nutrition Support Low sodium Pertinent Medications D5-0.45ns, Morphine, Zofran Pertinent Labs 10/21: potassium 2.9L, glucose 228H, A1c 6.8H Nutritional Hx/Data Height 1.47 m Height (Calculated Centimeters) 147.3 Current Weight (lbs) 61.825 kg Weight (Calculated Kilograms) 61.8 Weight (Calculated Grams) 74030.6 Usual body Weight (lbs) 140 [place] Body Weight 95 Recent Weight Change No Weight Status Overweight GI Symptoms Skin Integrity/Comment: Jaswinder 20. Skin intact. Estimated Nutritional Goals BEE in Kcals: Using Current wt Calories/Kcals/Kg CBW 136.3lb/62kg Kcals Calculated 1550-1860kcal (25-30kcal/kg) Protein: Using Current wt Protein Calculated 62g (1g/kg) Fluid: ml 1550-1860ml (1ml/kcal) Nutritional Problem 1. Problem Problem Altered nutrition related laboratory values related to Etiology unknown etiology aeb Signs/Symptoms: elevated glucose on adm 228, A1c 6.8 Intervention/Recommendation Comments 1. Recommend [address] to promote glycemic control. Expected Outcomes/Goals Expected Outcomes/Goals 1. PO intake to meet at least 75% of estimated nutritional needs.
--- NOTE | 2016-10-26 19:49 | General Progress Note ---
Subjective - Review of Systems Service Date: 10/26/16 Subjective: pt doing better afebrile no new complaints family was at the bedside did some PT this am Objective - Results Result Diagrams: 10/26/16 05:37 10/26/16 05:37 Recent Labs: Laboratory Last Values WBC 10.5 Th/cmm (4.8-10.8) 10/26/16 05:37 RBC 3.68 Mil/cmm (3.80-5.20) L 10/26/16 05:37 Hgb 11.2 gm/dL (11.7-16.1) L 10/26/16 05:37 Hct 33.0 % (35.0-45.0) L 10/26/16 05:37 MCV 89.7 fl (81-100) 10/26/16 05:37 MCH 30.6 pg (27.0-31.0) 10/26/16 05:37 MCHC Differential 34.1 pg (28.0-36.0) 10/26/16 05:37 RDW 11.8 % (11.5-20.0) 10/26/16 05:37 Plt Count 280 Th/cmm (150-400) 10/26/16 05:37 MPV 8.2 fl 10/26/16 05:37 Neutrophils % 65.2 % (40.0-80.0) 10/26/16 05:37 Band Neutrophils % 4 % (0-10) 10/23/16 05:00 Lymphocytes % 21.2 % (20.0-50.0) 10/26/16 05:37 Monocytes % 8.1 % (2.0-10.0) 10/26/16 05:37 Eosinophils % 5.2 % (0.0-5.0) H 10/26/16 05:37 Basophils % 0.3 % (0.0-2.0) 10/26/16 05:37 Neutrophils (Manual) 81 % (40-80) H 10/23/16 05:00 Lymphocytes 9 % (20-50) L 10/23/16 05:00 Monocytes 3 % (2-10) 10/23/16 05:00 Eosinophils 2 % (0-5) 10/23/16 05:00 PT 10.4 SECONDS (9.5-11.5) 10/23/16 05:00 INR 1.00 (0.5-1.4) 10/23/16 05:00 Sodium 130 mEq/L (136-145) L 10/26/16 05:37 Potassium 3.6 mEq/L (3.5-5.1) 10/26/16 05:37 Chloride 94 mEq/L (98-107) L 10/26/16 05:37 Carbon Dioxide 30.6 mEq/L (21.0-31.0) 10/26/16 05:37 Anion Gap 9.0 (7.0-16.0) 10/26/16 05:37 BUN 14 mg/dL (7-25) 10/26/16 05:37 Creatinine 0.4 mg/dL (0.6-1.2) L 10/26/16 05:37 Est GFR ( Amer) TNP 10/26/16 05:37 Est GFR (Non-Af Amer) TNP 10/26/16 05:37 BUN/Creatinine Ratio 35.0 10/26/16 05:37 Glucose 142 mg/dL (70-105) H 10/26/16 05:37 POC Glucose 149 MG/DL (70-105) H 10/23/16 14:52 Hemoglobin A1c % 6.8 % (4.0-6.0) H 10/21/16 23:26 Whole Bld Lactic Acid 3.06 mmol/L (0.60-1.99) H* 10/22/16 01:30 Calcium 8.5 mg/dL (8.6-10.3) L 10/26/16 05:37 Total Bilirubin 0.4 mg/dL (0.3-1.0) 10/25/16 06:58 AST 10 U/L (13-39) L 10/25/16 06:58 ALT 9 U/L (7-52) 10/25/16 06:58 Alkaline Phosphatase 93 U/L (34-104) 10/25/16 06:58 Total Protein 6.2 gm/dL (6.0-8.3) 10/25/16 06:58 Albumin 3.2 gm/dL (3.7-5.3) L 10/25/16 06:58 Globulin 3.0 gm/dL 10/25/16 06:58 Albumin/Globulin Ratio 1.1 (1.0-1.8) 10/25/16 06:58 Urine Source [place] 10/22/16 02:24 Urine Color YELLOW 10/22/16 02:24 Urine Clarity CLEAR (CLEAR) 10/22/16 02:24 Urine pH 7.0 (4.6 - 8.0) 10/22/16 02:24 Ur Specific [place] 1.010 (1.005-1.030) 10/22/16 02:24 Urine Protein NEGATIVE mg/dL (NEGATIVE) 10/22/16 02:24 Urine Glucose (UA) NEGATIVE mg/dL (NEGATIVE) 10/22/16 02:24 Urine Ketones NEGATIVE mg/dL (NEGATIVE) 10/22/16 02:24 Urine Blood SMALL (NEGATIVE) H 10/22/16 02:24 Urine Nitrate NEGATIVE (NEGATIVE) 10/22/16 02:24 Urine Bilirubin NEGATIVE (NEGATIVE) 10/22/16 02:24 Urine Urobilinogen 1.0 E.U./dL (0.2 - 1.0) 10/22/16 02:24 Ur Leukocyte Esterase NEGATIVE (NEGATIVE) 10/22/16 02:24 Urine RBC 5-10 /hpf (0-5) H 10/22/16 02:24 Urine WBC 0-2 /hpf (0-5) 10/22/16 02:24 Ur Epithelial Cells FEW /lpf (FEW) 10/22/16 02:24 Urine Bacteria FEW /hpf (NONE SEEN) 10/22/16 02:24 - Physical Exam Vitals and I&O: Vital Signs Temp 98.4 F 10/26/16 18:00 Pulse 92 10/26/16 19:41 Resp 20 10/26/16 19:41 BP 136/72 10/26/16 18:00 Pulse Ox 97 10/26/16 19:41 Intake & Output 10/26/16 10/26/16 10/27/16 06:59 18:59 06:59 Intake Total 480 500 Balance 480 500 Weight (lbs) 75.387 kg 75.296 kg Intake: Oral 480 500 Other: # Voids 3 2 # Bowel Movements 0 Active Medications: Current Medications Acetaminophen/Hydrocodone Bitart ([place] 5mg/325mg) 1 tab PO Q6H PRN PRN Reason: Pain (Mild) Stop: 12/23/16 08:33 Last Admin: 10/26/16 05:44 Dose: 1 tab Amlodipine Besylate (Norvasc) 10 mg PO DAILY [facility] Stop: 12/21/16 20:14 Last Admin: 10/26/16 08:27 Dose: 10 mg Docusate Sodium (Colace) 100 mg PO DAILY PRN PRN Reason: Constipation Stop: 12/23/16 08:59 Last Admin: 10/25/16 21:03 Dose: 100 mg Hydrochlorothiazide (Hctz) 25 mg PO DAILY [facility] Stop: 12/21/16 20:14 Last Admin: 10/26/16 08:26 Dose: 25 mg Lactobacillus Rhamnosus (Culturelle) 1 each PO DAILY [facility] Stop: 12/24/16 08:59 Last Admin: 10/26/16 08:27 Dose: 1 each Magnesium Hydroxide (Milk Of Magnesia) 30 ml PO HS PRN PRN Reason: Constipation Stop: 12/23/16 08:43 Miscellaneous (Probiotic Screen) 1 ea MC PRN PRN PRN Reason: PROTOCOL Stop: 12/23/16 10:06 Morphine Sulfate (Morphine) 1 mg IVP Q2HR PRN PRN Reason: Severe Pain Stop: 12/23/16 08:32 Last Admin: 10/26/16 18:24 Dose: 1 mg Multivitamins/Vitamin C (Theragran) 1 tab PO DAILY [facility] Stop: 12/23/16 08:59 Last Admin: 10/26/16 08:27 Dose: 1 tab Ondansetron HCl (Zofran) 4 mg IV Q6H PRN PRN Reason: Nausea / Vomiting Stop: 12/21/16 02:40 Last Admin: 10/23/16 12:10 Dose: 4 mg Rivaroxaban (Xarelto) 10 mg PO DAILY [facility] Stop: 12/23/16 08:59 Last Admin: 10/26/16 08:27 Dose: 10 mg Cardiovascular: Regular rate Lungs: Clear to auscultation Abdomen: Soft, no Tender Extremities: Other (no edema) - Procedures Procedures: Procedures Procedure Code Date REPOSITION LEFT UPPER FEMUR WITH INT FIX, OPEN APPROACH [id number] 10/22/16 TREAT THIGH FRACTURE 75960 10/22/16 Assessment/Plan - Assessment Assessment: Left pelvic fracture UTI HTN Leucocytosis most likely reactive - Plan Plan: Continue current treatment Family was updated on pt's condition and plan of care PT/OT SNIF DC planing Nutritional Asmnt/Malnutr-PDOC - Dietary Evaluation Malnutrition Findings (Please click <Entered> for more info): Nutritional Asmnt/Malnutrition Start: 10/22/16 14: 16 Text: Status: Complete Freq: Document 10/22/16 14:17 ALYSSA (Rec: 10/22/16 14:35 [email or web address]) Nutritional Asmnt/Malnutrition Patient General Information Nutritional Screening High Risk Screening Diagnosis Reason for visit: left hip fracture Pertinent Medical Hx/Surgical Hx ER report: HTN, cataract surgery to left eye Subjective Information 81 year old female form home, Turkish speaking. Spoke to pt and granddaughter at bedside who assisted with translations . Pt is unaware of elevated glucose levels. Pt usually with fiar appetite, sometimes skips dinner. RD explained importance of consistent meals and suggested CCHO diet to promote glycemic control, pt understood and agreed. UBW 140lb. Edentulous, pt reported no difficulties eating. No muscle fat wasting noted. Current Diet Order/ Nutrition Support Low sodium Pertinent Medications D5-0.45ns, Morphine, Zofran Pertinent Labs 10/21: potassium 2.9L, glucose 228H, A1c 6.8H Nutritional Hx/Data Height 1.47 m Height (Calculated Centimeters) 147.3 Current Weight (lbs) 61.825 kg Weight (Calculated Kilograms) 61.8 Weight (Calculated Grams) 68994.6 Usual body Weight (lbs) 140 [place] Body Weight 95 Recent Weight Change No Weight Status Overweight GI Symptoms Skin Integrity/Comment: Jaswinder 20. Skin intact. Estimated Nutritional Goals BEE in Kcals: Using Current wt Calories/Kcals/Kg CBW 136.3lb/62kg Kcals Calculated 1550-1860kcal (25-30kcal/kg) Protein: Using Current wt Protein Calculated 62g (1g/kg) Fluid: ml 1550-1860ml (1ml/kcal) Nutritional Problem 1. Problem Problem Altered nutrition related laboratory values related to Etiology unknown etiology aeb Signs/Symptoms: elevated glucose on adm 228, A1c 6.8 Intervention/Recommendation Comments 1. Recommend [id number] to promote glycemic control. Expected Outcomes/Goals Expected Outcomes/Goals 1. PO intake to meet at least 75% of estimated nutritional needs.
--- NOTE | 2016-10-26 22:37 | General Progress Note ---
Subjective - Review of Systems Service Date: 10/26/16 Subjective: Minimum pain left hip - getting up with PT with limited weight bearing left leg.. Objective - Results Result Diagrams: 10/26/16 05:37 10/26/16 05:37 Recent Labs: Laboratory Last Values WBC 10.5 Th/cmm (4.8-10.8) 10/26/16 05:37 RBC 3.68 Mil/cmm (3.80-5.20) L 10/26/16 05:37 Hgb 11.2 gm/dL (11.7-16.1) L 10/26/16 05:37 Hct 33.0 % (35.0-45.0) L 10/26/16 05:37 MCV 89.7 fl (81-100) 10/26/16 05:37 MCH 30.6 pg (27.0-31.0) 10/26/16 05:37 MCHC Differential 34.1 pg (28.0-36.0) 10/26/16 05:37 RDW 11.8 % (11.5-20.0) 10/26/16 05:37 Plt Count 280 Th/cmm (150-400) 10/26/16 05:37 MPV 8.2 fl 10/26/16 05:37 Neutrophils % 65.2 % (40.0-80.0) 10/26/16 05:37 Band Neutrophils % 4 % (0-10) 10/23/16 05:00 Lymphocytes % 21.2 % (20.0-50.0) 10/26/16 05:37 Monocytes % 8.1 % (2.0-10.0) 10/26/16 05:37 Eosinophils % 5.2 % (0.0-5.0) H 10/26/16 05:37 Basophils % 0.3 % (0.0-2.0) 10/26/16 05:37 Neutrophils (Manual) 81 % (40-80) H 10/23/16 05:00 Lymphocytes 9 % (20-50) L 10/23/16 05:00 Monocytes 3 % (2-10) 10/23/16 05:00 Eosinophils 2 % (0-5) 10/23/16 05:00 PT 10.4 SECONDS (9.5-11.5) 10/23/16 05:00 INR 1.00 (0.5-1.4) 10/23/16 05:00 Sodium 130 mEq/L (136-145) L 10/26/16 05:37 Potassium 3.6 mEq/L (3.5-5.1) 10/26/16 05:37 Chloride 94 mEq/L (98-107) L 10/26/16 05:37 Carbon Dioxide 30.6 mEq/L (21.0-31.0) 10/26/16 05:37 Anion Gap 9.0 (7.0-16.0) 10/26/16 05:37 BUN 14 mg/dL (7-25) 10/26/16 05:37 Creatinine 0.4 mg/dL (0.6-1.2) L 10/26/16 05:37 Est GFR ( Amer) TNP 10/26/16 05:37 Est GFR (Non-Af Amer) TNP 10/26/16 05:37 BUN/Creatinine Ratio 35.0 10/26/16 05:37 Glucose 142 mg/dL (70-105) H 10/26/16 05:37 POC Glucose 149 MG/DL (70-105) H 10/23/16 14:52 Hemoglobin A1c % 6.8 % (4.0-6.0) H 10/21/16 23:26 Whole Bld Lactic Acid 3.06 mmol/L (0.60-1.99) H* 10/22/16 01:30 Calcium 8.5 mg/dL (8.6-10.3) L 10/26/16 05:37 Total Bilirubin 0.4 mg/dL (0.3-1.0) 10/25/16 06:58 AST 10 U/L (13-39) L 10/25/16 06:58 ALT 9 U/L (7-52) 10/25/16 06:58 Alkaline Phosphatase 93 U/L (34-104) 10/25/16 06:58 Total Protein 6.2 gm/dL (6.0-8.3) 10/25/16 06:58 Albumin 3.2 gm/dL (3.7-5.3) L 10/25/16 06:58 Globulin 3.0 gm/dL 10/25/16 06:58 Albumin/Globulin Ratio 1.1 (1.0-1.8) 10/25/16 06:58 Urine Source [place] 10/22/16 02:24 Urine Color YELLOW 10/22/16 02:24 Urine Clarity CLEAR (CLEAR) 10/22/16 02:24 Urine pH 7.0 (4.6 - 8.0) 10/22/16 02:24 Ur Specific [place] 1.010 (1.005-1.030) 10/22/16 02:24 Urine Protein NEGATIVE mg/dL (NEGATIVE) 10/22/16 02:24 Urine Glucose (UA) NEGATIVE mg/dL (NEGATIVE) 10/22/16 02:24 Urine Ketones NEGATIVE mg/dL (NEGATIVE) 10/22/16 02:24 Urine Blood SMALL (NEGATIVE) H 10/22/16 02:24 Urine Nitrate NEGATIVE (NEGATIVE) 10/22/16 02:24 Urine Bilirubin NEGATIVE (NEGATIVE) 10/22/16 02:24 Urine Urobilinogen 1.0 E.U./dL (0.2 - 1.0) 10/22/16 02:24 Ur Leukocyte Esterase NEGATIVE (NEGATIVE) 10/22/16 02:24 Urine RBC 5-10 /hpf (0-5) H 10/22/16 02:24 Urine WBC 0-2 /hpf (0-5) 10/22/16 02:24 Ur Epithelial Cells FEW /lpf (FEW) 10/22/16 02:24 Urine Bacteria FEW /hpf (NONE SEEN) 10/22/16 02:24 - Physical Exam Vitals and I&O: Vital Signs Temp 99.0 F 10/26/16 20:00 Pulse 87 10/26/16 20:00 Resp 19 10/26/16 20:00 BP 142/67 10/26/16 20:00 Pulse Ox 97 10/26/16 20:00 Intake & Output 10/26/16 10/26/16 10/27/16 06:59 18:59 06:59 Intake Total 480 500 Balance 480 500 Weight (lbs) 75.387 kg 75.296 kg Intake: Oral 480 500 Other: # Voids 3 2 # Bowel Movements 0 Active Medications: Current Medications Acetaminophen/Hydrocodone Bitart ([place] 5mg/325mg) 1 tab PO Q6H PRN PRN Reason: Pain (Mild) Stop: 12/23/16 08:33 Last Admin: 10/26/16 05:44 Dose: 1 tab Amlodipine Besylate (Norvasc) 10 mg PO DAILY [facility] Stop: 12/21/16 20:14 Last Admin: 10/26/16 08:27 Dose: 10 mg Docusate Sodium (Colace) 100 mg PO DAILY PRN PRN Reason: Constipation Stop: 12/23/16 08:59 Last Admin: 10/25/16 21:03 Dose: 100 mg Hydrochlorothiazide (Hctz) 25 mg PO DAILY [facility] Stop: 12/21/16 20:14 Last Admin: 10/26/16 08:26 Dose: 25 mg Lactobacillus Rhamnosus (Culturelle) 1 each PO DAILY [facility] Stop: 12/24/16 08:59 Last Admin: 10/26/16 08:27 Dose: 1 each Magnesium Hydroxide (Milk Of Magnesia) 30 ml PO HS PRN PRN Reason: Constipation Stop: 12/23/16 08:43 Miscellaneous (Probiotic Screen) 1 ea MC PRN PRN PRN Reason: PROTOCOL Stop: 12/23/16 10:06 Morphine Sulfate (Morphine) 1 mg IVP Q2HR PRN PRN Reason: Severe Pain Stop: 12/23/16 08:32 Last Admin: 10/26/16 18:24 Dose: 1 mg Multivitamins/Vitamin C (Theragran) 1 tab PO DAILY [facility] Stop: 12/23/16 08:59 Last Admin: 10/26/16 08:27 Dose: 1 tab Ondansetron HCl (Zofran) 4 mg IV Q6H PRN PRN Reason: Nausea / Vomiting Stop: 12/21/16 02:40 Last Admin: 10/23/16 12:10 Dose: 4 mg Rivaroxaban (Xarelto) 10 mg PO DAILY [facility] Stop: 12/23/16 08:59 Last Admin: 10/26/16 08:27 Dose: 10 mg Cardiovascular: Regular rate Lungs: Clear to auscultation Abdomen: Soft, no Tender Extremities: Other (no edema) Other physical findings: Wounds benign. Minimal swelling. NV intact. - Procedures Procedures: Procedures Procedure Code Date REPOSITION LEFT UPPER FEMUR WITH INT FIX, OPEN APPROACH [id number] 10/22/16 TREAT THIGH FRACTURE 63456 10/22/16 Assessment/Plan - Assessment Assessment: S/P ORIF left hip fracture - Plan Plan: Mrs Ramos can be transferred - same Orthopedic Orders. Cecil out in 10 - 12 days Get Xrays of her left hip in 3 weeks. Nutritional Asmnt/Malnutr-PDOC - Dietary Evaluation Malnutrition Findings (Please click <Entered> for more info): Nutritional Asmnt/Malnutrition Start: 10/22/16 14: 16 Text: Status: Complete Freq: Document 10/22/16 14:17 GSUN (Rec: 10/22/16 14:35 GSUN [email or web address]) Nutritional Asmnt/Malnutrition Patient General Information Nutritional Screening High Risk Screening Diagnosis Reason for visit: left hip fracture Pertinent Medical Hx/Surgical Hx ER report: HTN, cataract surgery to left eye Subjective Information 81 year old female form home, Frisian speaking. Spoke to pt and granddaughter at bedside who assisted with translations . Pt is unaware of elevated glucose levels. Pt usually with fiar appetite, sometimes skips dinner. RD explained importance of consistent meals and suggested CCHO diet to promote glycemic control, pt understood and agreed. UBW 140lb. Edentulous, pt reported no difficulties eating. No muscle fat wasting noted. Current Diet Order/ Nutrition Support Low sodium Pertinent Medications D5-0.45ns, Morphine, Zofran Pertinent Labs 10/21: potassium 2.9L, glucose 228H, A1c 6.8H Nutritional Hx/Data Height 1.47 m Height (Calculated Centimeters) 147.3 Current Weight (lbs) 61.825 kg Weight (Calculated Kilograms) 61.8 Weight (Calculated Grams) 66011.6 Usual body Weight (lbs) 140 [place] Body Weight 95 Recent Weight Change No Weight Status Overweight GI Symptoms Skin Integrity/Comment: Jaswinder 20. Skin intact. Estimated Nutritional Goals BEE in Kcals: Using Current wt Calories/Kcals/Kg CBW 136.3lb/62kg Kcals Calculated 1550-1860kcal (25-30kcal/kg) Protein: Using Current wt Protein Calculated 62g (1g/kg) Fluid: ml 1550-1860ml (1ml/kcal) Nutritional Problem 1. Problem Problem Altered nutrition related laboratory values related to Etiology unknown etiology aeb Signs/Symptoms: elevated glucose on adm 228, A1c 6.8 Intervention/Recommendation Comments 1. Recommend [id number] to promote glycemic control. Expected Outcomes/Goals Expected Outcomes/Goals 1. PO intake to meet at least 75% of estimated nutritional needs.
--- NOTE | 2016-10-26 22:52 | General Progress Note ---
Subjective - Review of Systems Subjective: Minimum pain left hip - getting up with PT with limited weight bearing left leg.. Objective - Results Result Diagrams: 10/26/16 05:37 10/26/16 05:37 Recent Labs: Laboratory Last Values WBC 10.5 Th/cmm (4.8-10.8) 10/26/16 05:37 RBC 3.68 Mil/cmm (3.80-5.20) L 10/26/16 05:37 Hgb 11.2 gm/dL (11.7-16.1) L 10/26/16 05:37 Hct 33.0 % (35.0-45.0) L 10/26/16 05:37 MCV 89.7 fl (81-100) 10/26/16 05:37 MCH 30.6 pg (27.0-31.0) 10/26/16 05:37 MCHC Differential 34.1 pg (28.0-36.0) 10/26/16 05:37 RDW 11.8 % (11.5-20.0) 10/26/16 05:37 Plt Count 280 Th/cmm (150-400) 10/26/16 05:37 MPV 8.2 fl 10/26/16 05:37 Neutrophils % 65.2 % (40.0-80.0) 10/26/16 05:37 Band Neutrophils % 4 % (0-10) 10/23/16 05:00 Lymphocytes % 21.2 % (20.0-50.0) 10/26/16 05:37 Monocytes % 8.1 % (2.0-10.0) 10/26/16 05:37 Eosinophils % 5.2 % (0.0-5.0) H 10/26/16 05:37 Basophils % 0.3 % (0.0-2.0) 10/26/16 05:37 Neutrophils (Manual) 81 % (40-80) H 10/23/16 05:00 Lymphocytes 9 % (20-50) L 10/23/16 05:00 Monocytes 3 % (2-10) 10/23/16 05:00 Eosinophils 2 % (0-5) 10/23/16 05:00 PT 10.4 SECONDS (9.5-11.5) 10/23/16 05:00 INR 1.00 (0.5-1.4) 10/23/16 05:00 Sodium 130 mEq/L (136-145) L 10/26/16 05:37 Potassium 3.6 mEq/L (3.5-5.1) 10/26/16 05:37 Chloride 94 mEq/L (98-107) L 10/26/16 05:37 Carbon Dioxide 30.6 mEq/L (21.0-31.0) 10/26/16 05:37 Anion Gap 9.0 (7.0-16.0) 10/26/16 05:37 BUN 14 mg/dL (7-25) 10/26/16 05:37 Creatinine 0.4 mg/dL (0.6-1.2) L 10/26/16 05:37 Est GFR ( Amer) TNP 10/26/16 05:37 Est GFR (Non-Af Amer) TNP 10/26/16 05:37 BUN/Creatinine Ratio 35.0 10/26/16 05:37 Glucose 142 mg/dL (70-105) H 10/26/16 05:37 POC Glucose 149 MG/DL (70-105) H 10/23/16 14:52 Hemoglobin A1c % 6.8 % (4.0-6.0) H 10/21/16 23:26 Whole Bld Lactic Acid 3.06 mmol/L (0.60-1.99) H* 10/22/16 01:30 Calcium 8.5 mg/dL (8.6-10.3) L 10/26/16 05:37 Total Bilirubin 0.4 mg/dL (0.3-1.0) 10/25/16 06:58 AST 10 U/L (13-39) L 10/25/16 06:58 ALT 9 U/L (7-52) 10/25/16 06:58 Alkaline Phosphatase 93 U/L (34-104) 10/25/16 06:58 Total Protein 6.2 gm/dL (6.0-8.3) 10/25/16 06:58 Albumin 3.2 gm/dL (3.7-5.3) L 10/25/16 06:58 Globulin 3.0 gm/dL 10/25/16 06:58 Albumin/Globulin Ratio 1.1 (1.0-1.8) 10/25/16 06:58 Urine Source [place] 10/22/16 02:24 Urine Color YELLOW 10/22/16 02:24 Urine Clarity CLEAR (CLEAR) 10/22/16 02:24 Urine pH 7.0 (4.6 - 8.0) 10/22/16 02:24 Ur Specific [place] 1.010 (1.005-1.030) 10/22/16 02:24 Urine Protein NEGATIVE mg/dL (NEGATIVE) 10/22/16 02:24 Urine Glucose (UA) NEGATIVE mg/dL (NEGATIVE) 10/22/16 02:24 Urine Ketones NEGATIVE mg/dL (NEGATIVE) 10/22/16 02:24 Urine Blood SMALL (NEGATIVE) H 10/22/16 02:24 Urine Nitrate NEGATIVE (NEGATIVE) 10/22/16 02:24 Urine Bilirubin NEGATIVE (NEGATIVE) 10/22/16 02:24 Urine Urobilinogen 1.0 E.U./dL (0.2 - 1.0) 10/22/16 02:24 Ur Leukocyte Esterase NEGATIVE (NEGATIVE) 10/22/16 02:24 Urine RBC 5-10 /hpf (0-5) H 10/22/16 02:24 Urine WBC 0-2 /hpf (0-5) 10/22/16 02:24 Ur Epithelial Cells FEW /lpf (FEW) 10/22/16 02:24 Urine Bacteria FEW /hpf (NONE SEEN) 10/22/16 02:24 - Physical Exam Vitals and I&O: Vital Signs Temp 99.0 F 10/26/16 20:00 Pulse 87 10/26/16 20:00 Resp 19 10/26/16 20:00 BP 142/67 10/26/16 20:00 Pulse Ox 97 10/26/16 20:00 Intake & Output 10/26/16 10/26/16 10/27/16 06:59 18:59 06:59 Intake Total 480 500 Balance 480 500 Weight (lbs) 75.387 kg 75.296 kg Intake: Oral 480 500 Other: # Voids 3 2 # Bowel Movements 0 Active Medications: Current Medications Acetaminophen/Hydrocodone Bitart ([place] 5mg/325mg) 1 tab PO Q6H PRN PRN Reason: Pain (Mild) Stop: 12/23/16 08:33 Last Admin: 10/26/16 05:44 Dose: 1 tab Amlodipine Besylate (Norvasc) 10 mg PO DAILY [facility] Stop: 12/21/16 20:14 Last Admin: 10/26/16 08:27 Dose: 10 mg Docusate Sodium (Colace) 100 mg PO DAILY PRN PRN Reason: Constipation Stop: 12/23/16 08:59 Last Admin: 10/25/16 21:03 Dose: 100 mg Hydrochlorothiazide (Hctz) 25 mg PO DAILY [facility] Stop: 12/21/16 20:14 Last Admin: 10/26/16 08:26 Dose: 25 mg Lactobacillus Rhamnosus (Culturelle) 1 each PO DAILY [facility] Stop: 12/24/16 08:59 Last Admin: 10/26/16 08:27 Dose: 1 each Magnesium Hydroxide (Milk Of Magnesia) 30 ml PO HS PRN PRN Reason: Constipation Stop: 12/23/16 08:43 Miscellaneous (Probiotic Screen) 1 ea MC PRN PRN PRN Reason: PROTOCOL Stop: 12/23/16 10:06 Morphine Sulfate (Morphine) 1 mg IVP Q2HR PRN PRN Reason: Severe Pain Stop: 12/23/16 08:32 Last Admin: 10/26/16 18:24 Dose: 1 mg Multivitamins/Vitamin C (Theragran) 1 tab PO DAILY [facility] Stop: 12/23/16 08:59 Last Admin: 10/26/16 08:27 Dose: 1 tab Ondansetron HCl (Zofran) 4 mg IV Q6H PRN PRN Reason: Nausea / Vomiting Stop: 12/21/16 02:40 Last Admin: 10/23/16 12:10 Dose: 4 mg Rivaroxaban (Xarelto) 10 mg PO DAILY [facility] Stop: 12/23/16 08:59 Last Admin: 10/26/16 08:27 Dose: 10 mg Cardiovascular: Regular rate Lungs: Clear to auscultation Abdomen: Soft, no Tender Extremities: Other (no edema) - Procedures Procedures: Procedures Procedure Code Date REPOSITION LEFT UPPER FEMUR WITH INT FIX, OPEN APPROACH [id number] 10/22/16 TREAT THIGH FRACTURE 84867 10/22/16 Assessment/Plan - Assessment Assessment: S/P ORIF left hip fracture - Plan Plan: Mrs Ramos can be transferred - same Orthopedic Orders. [place] out in 10 - 12 days Get Xrays of her left hip in 3 weeks. Nutritional Asmnt/Malnutr-PDOC - Dietary Evaluation Malnutrition Findings (Please click <Entered> for more info): Nutritional Asmnt/Malnutrition Start: 10/22/16 14: 16 Text: Status: Complete Freq: Document 10/22/16 14:17 ALYSSA (Rec: 10/22/16 14:35 [email or web address] [email or web address]) Nutritional Asmnt/Malnutrition Patient General Information Nutritional Screening High Risk Screening Diagnosis Reason for visit: left hip fracture Pertinent Medical Hx/Surgical Hx ER report: HTN, cataract surgery to left eye Subjective Information 81 year old female form home, [place] speaking. Spoke to pt and granddaughter at bedside who assisted with translations . Pt is unaware of elevated glucose levels. Pt usually with fiar appetite, sometimes skips dinner. RD explained importance of consistent meals and suggested CCHO diet to promote glycemic control, pt understood and agreed. UBW 140lb. Edentulous, pt reported no difficulties eating. No muscle fat wasting noted. Current Diet Order/ Nutrition Support Low sodium Pertinent Medications D5-0.45ns, Morphine, Zofran Pertinent Labs 10/21: potassium 2.9L, glucose 228H, A1c 6.8H Nutritional Hx/Data Height 1.47 m Height (Calculated Centimeters) 147.3 Current Weight (lbs) 61.825 kg Weight (Calculated Kilograms) 61.8 Weight (Calculated Grams) 99899.6 Usual body Weight (lbs) 140 [place] Body Weight 95 Recent Weight Change No Weight Status Overweight GI Symptoms Skin Integrity/Comment: Jaswinder 20. Skin intact. Estimated Nutritional Goals BEE in Kcals: Using Current wt Calories/Kcals/Kg CBW 136.3lb/62kg Kcals Calculated 1550-1860kcal (25-30kcal/kg) Protein: Using Current wt Protein Calculated 62g (1g/kg) Fluid: ml 1550-1860ml (1ml/kcal) Nutritional Problem 1. Problem Problem Altered nutrition related laboratory values related to Etiology unknown etiology aeb Signs/Symptoms: elevated glucose on adm 228, A1c 6.8 Intervention/Recommendation Comments 1. Recommend [id number] to promote glycemic control. Expected Outcomes/Goals Expected Outcomes/Goals 1. PO intake to meet at least 75% of estimated nutritional needs.
[2016-10-27] MEDS: Lactobacillus Rhamnosus 10 Billion CFU Capsule PO SCH (08:49)
[2016-10-27] MEDS: Multivitamin Tab PO SCH (08:49)
[2016-10-27] MEDS: Hydrocodone/APAP 5mg/325mg Tab PO PRN (08:54)
--- NOTE | 2016-10-27 11:11 | General Progress Note ---
Subjective - Review of Systems Service Date: 10/27/16 Subjective: pt doing fine does some PT denied any complaints Objective - Results Result Diagrams: 10/26/16 05:37 10/26/16 05:37 Recent Labs: Laboratory Last Values WBC 10.5 Th/cmm (4.8-10.8) 10/26/16 05:37 RBC 3.68 Mil/cmm (3.80-5.20) L 10/26/16 05:37 Hgb 11.2 gm/dL (11.7-16.1) L 10/26/16 05:37 Hct 33.0 % (35.0-45.0) L 10/26/16 05:37 MCV 89.7 fl (81-100) 10/26/16 05:37 MCH 30.6 pg (27.0-31.0) 10/26/16 05:37 MCHC Differential 34.1 pg (28.0-36.0) 10/26/16 05:37 RDW 11.8 % (11.5-20.0) 10/26/16 05:37 Plt Count 280 Th/cmm (150-400) 10/26/16 05:37 MPV 8.2 fl 10/26/16 05:37 Neutrophils % 65.2 % (40.0-80.0) 10/26/16 05:37 Band Neutrophils % 4 % (0-10) 10/23/16 05:00 Lymphocytes % 21.2 % (20.0-50.0) 10/26/16 05:37 Monocytes % 8.1 % (2.0-10.0) 10/26/16 05:37 Eosinophils % 5.2 % (0.0-5.0) H 10/26/16 05:37 Basophils % 0.3 % (0.0-2.0) 10/26/16 05:37 Neutrophils (Manual) 81 % (40-80) H 10/23/16 05:00 Lymphocytes 9 % (20-50) L 10/23/16 05:00 Monocytes 3 % (2-10) 10/23/16 05:00 Eosinophils 2 % (0-5) 10/23/16 05:00 PT 10.4 SECONDS (9.5-11.5) 10/23/16 05:00 INR 1.00 (0.5-1.4) 10/23/16 05:00 Sodium 130 mEq/L (136-145) L 10/26/16 05:37 Potassium 3.6 mEq/L (3.5-5.1) 10/26/16 05:37 Chloride 94 mEq/L (98-107) L 10/26/16 05:37 Carbon Dioxide 30.6 mEq/L (21.0-31.0) 10/26/16 05:37 Anion Gap 9.0 (7.0-16.0) 10/26/16 05:37 BUN 14 mg/dL (7-25) 10/26/16 05:37 Creatinine 0.4 mg/dL (0.6-1.2) L 10/26/16 05:37 Est GFR ( Amer) TNP 10/26/16 05:37 Est GFR (Non-Af Amer) TNP 10/26/16 05:37 BUN/Creatinine Ratio 35.0 10/26/16 05:37 Glucose 142 mg/dL (70-105) H 10/26/16 05:37 POC Glucose 149 MG/DL (70-105) H 10/23/16 14:52 Hemoglobin A1c % 6.8 % (4.0-6.0) H 10/21/16 23:26 Whole Bld Lactic Acid 3.06 mmol/L (0.60-1.99) H* 10/22/16 01:30 Calcium 8.5 mg/dL (8.6-10.3) L 10/26/16 05:37 Total Bilirubin 0.4 mg/dL (0.3-1.0) 10/25/16 06:58 AST 10 U/L (13-39) L 10/25/16 06:58 ALT 9 U/L (7-52) 10/25/16 06:58 Alkaline Phosphatase 93 U/L (34-104) 10/25/16 06:58 Total Protein 6.2 gm/dL (6.0-8.3) 10/25/16 06:58 Albumin 3.2 gm/dL (3.7-5.3) L 10/25/16 06:58 Globulin 3.0 gm/dL 10/25/16 06:58 Albumin/Globulin Ratio 1.1 (1.0-1.8) 10/25/16 06:58 Urine Source [place] 10/22/16 02:24 Urine Color YELLOW 10/22/16 02:24 Urine Clarity CLEAR (CLEAR) 10/22/16 02:24 Urine pH 7.0 (4.6 - 8.0) 10/22/16 02:24 Ur Specific [place] 1.010 (1.005-1.030) 10/22/16 02:24 Urine Protein NEGATIVE mg/dL (NEGATIVE) 10/22/16 02:24 Urine Glucose (UA) NEGATIVE mg/dL (NEGATIVE) 10/22/16 02:24 Urine Ketones NEGATIVE mg/dL (NEGATIVE) 10/22/16 02:24 Urine Blood SMALL (NEGATIVE) H 10/22/16 02:24 Urine Nitrate NEGATIVE (NEGATIVE) 10/22/16 02:24 Urine Bilirubin NEGATIVE (NEGATIVE) 10/22/16 02:24 Urine Urobilinogen 1.0 E.U./dL (0.2 - 1.0) 10/22/16 02:24 Ur Leukocyte Esterase NEGATIVE (NEGATIVE) 10/22/16 02:24 Urine RBC 5-10 /hpf (0-5) H 10/22/16 02:24 Urine WBC 0-2 /hpf (0-5) 10/22/16 02:24 Ur Epithelial Cells FEW /lpf (FEW) 10/22/16 02:24 Urine Bacteria FEW /hpf (NONE SEEN) 10/22/16 02:24 - Physical Exam Vitals and I&O: Vital Signs Temp 98.6 F 10/27/16 04:00 Pulse 77 10/27/16 08:49 Resp 18 10/27/16 04:00 BP 148/70 10/27/16 08:50 Pulse Ox 98 10/27/16 04:00 Intake & Output 10/26/16 10/27/16 10/27/16 18:59 06:59 18:59 Intake Total 500 450 Balance 500 450 Weight (lbs) 75.296 kg 75.478 kg Intake: Oral 500 450 Other: # Voids 2 5 # Bowel Movements 1 Active Medications: Current Medications Acetaminophen/Hydrocodone Bitart ([place] 5mg/325mg) 1 tab PO Q6H PRN PRN Reason: Pain (Mild) Stop: 12/23/16 08:33 Last Admin: 10/27/16 08:54 Dose: 1 tab Amlodipine Besylate (Norvasc) 10 mg PO DAILY [facility] Stop: 12/21/16 20:14 Last Admin: 10/27/16 08:49 Dose: 10 mg Docusate Sodium (Colace) 100 mg PO DAILY PRN PRN Reason: Constipation Stop: 12/23/16 08:59 Last Admin: 10/25/16 21:03 Dose: 100 mg Hydrochlorothiazide (Hctz) 25 mg PO DAILY [facility] Stop: 12/21/16 20:14 Last Admin: 10/27/16 08:50 Dose: 25 mg Lactobacillus Rhamnosus (Culturelle) 1 each PO DAILY [facility] Stop: 12/24/16 08:59 Last Admin: 10/27/16 08:49 Dose: 1 each Magnesium Hydroxide (Milk Of Magnesia) 30 ml PO HS PRN PRN Reason: Constipation Stop: 12/23/16 08:43 Miscellaneous (Probiotic Screen) 1 ea MC PRN PRN PRN Reason: PROTOCOL Stop: 12/23/16 10:06 Morphine Sulfate (Morphine) 1 mg IVP Q2HR PRN PRN Reason: Severe Pain Stop: 12/23/16 08:32 Last Admin: 10/26/16 18:24 Dose: 1 mg Multivitamins/Vitamin C (Theragran) 1 tab PO DAILY [facility] Stop: 12/23/16 08:59 Last Admin: 10/27/16 08:49 Dose: 1 tab Ondansetron HCl (Zofran) 4 mg IV Q6H PRN PRN Reason: Nausea / Vomiting Stop: 12/21/16 02:40 Last Admin: 10/23/16 12:10 Dose: 4 mg Rivaroxaban (Xarelto) 10 mg PO DAILY [facility] Stop: 12/23/16 08:59 Last Admin: 10/27/16 08:49 Dose: 10 mg Cardiovascular: Regular rate Lungs: Clear to auscultation Abdomen: Soft, no Tender Extremities: Other (no edema) - Procedures Procedures: Procedures Procedure Code Date REPOSITION LEFT UPPER FEMUR WITH INT FIX, OPEN APPROACH [id number] 10/22/16 TREAT THIGH FRACTURE 59275 10/22/16 Assessment/Plan - Assessment Assessment: Left pelvic fracture s/p ORIF UTI HTN Leucocytosis most likely reactive - Plan Plan: Continue current treatment Family was updated on pt's condition and plan of care PT/OT SNIF DC planing plan of care discussed with nursing staff Nutritional Asmnt/Malnutr-PDOC - Dietary Evaluation Malnutrition Findings (Please click <Entered> for more info): Nutritional Asmnt/Malnutrition Start: 10/22/16 14: 16 Text: Status: Complete Freq: Document 10/22/16 14:17 ALYSSA (Rec: 10/22/16 14:35 [email or web address] [email or web address]) Nutritional Asmnt/Malnutrition Patient General Information Nutritional Screening High Risk Screening Diagnosis Reason for visit: left hip fracture Pertinent Medical Hx/Surgical Hx ER report: HTN, cataract surgery to left eye Subjective Information 81 year old female form home, [place] speaking. Spoke to pt and granddaughter at bedside who assisted with translations . Pt is unaware of elevated glucose levels. Pt usually with fiar appetite, sometimes skips dinner. RD explained importance of consistent meals and suggested CCHO diet to promote glycemic control, pt understood and agreed. UBW 140lb. Edentulous, pt reported no difficulties eating. No muscle fat wasting noted. Current Diet Order/ Nutrition Support Low sodium Pertinent Medications D5-0.45ns, Morphine, Zofran Pertinent Labs 10/21: potassium 2.9L, glucose 228H, A1c 6.8H Nutritional Hx/Data Height 1.47 m Height (Calculated Centimeters) 147.3 Current Weight (lbs) 61.825 kg Weight (Calculated Kilograms) 61.8 Weight (Calculated Grams) 10285.6 Usual body Weight (lbs) 140 [place] Body Weight 95 Recent Weight Change No Weight Status Overweight GI Symptoms Skin Integrity/Comment: Jaswinder 20. Skin intact. Estimated Nutritional Goals BEE in Kcals: Using Current wt Calories/Kcals/Kg CBW 136.3lb/62kg Kcals Calculated 1550-1860kcal (25-30kcal/kg) Protein: Using Current wt Protein Calculated 62g (1g/kg) Fluid: ml 1550-1860ml (1ml/kcal) Nutritional Problem 1. Problem Problem Altered nutrition related laboratory values related to Etiology unknown etiology aeb Signs/Symptoms: elevated glucose on adm 228, A1c 6.8 Intervention/Recommendation Comments 1. Recommend [id number] to promote glycemic control. Expected Outcomes/Goals Expected Outcomes/Goals 1. PO intake to meet at least 75% of estimated nutritional needs.
--- NOTE | 2016-10-27 12:24 | Infectious Disease Prog Note ---
Infectious Disease Subjective - Review of Systems Service Date: 10/27/16 Subjective: No fever, no chills. No new change Infectious Disease Objective - Results Result Diagrams: 10/26/16 05:37 10/26/16 05:37 Recent Labs: Laboratory Last Values WBC 10.5 Th/cmm (4.8-10.8) 10/26/16 05:37 RBC 3.68 Mil/cmm (3.80-5.20) L 10/26/16 05:37 Hgb 11.2 gm/dL (11.7-16.1) L 10/26/16 05:37 Hct 33.0 % (35.0-45.0) L 10/26/16 05:37 MCV 89.7 fl (81-100) 10/26/16 05:37 MCH 30.6 pg (27.0-31.0) 10/26/16 05:37 MCHC Differential 34.1 pg (28.0-36.0) 10/26/16 05:37 RDW 11.8 % (11.5-20.0) 10/26/16 05:37 Plt Count 280 Th/cmm (150-400) 10/26/16 05:37 MPV 8.2 fl 10/26/16 05:37 Neutrophils % 65.2 % (40.0-80.0) 10/26/16 05:37 Band Neutrophils % 4 % (0-10) 10/23/16 05:00 Lymphocytes % 21.2 % (20.0-50.0) 10/26/16 05:37 Monocytes % 8.1 % (2.0-10.0) 10/26/16 05:37 Eosinophils % 5.2 % (0.0-5.0) H 10/26/16 05:37 Basophils % 0.3 % (0.0-2.0) 10/26/16 05:37 Neutrophils (Manual) 81 % (40-80) H 10/23/16 05:00 Lymphocytes 9 % (20-50) L 10/23/16 05:00 Monocytes 3 % (2-10) 10/23/16 05:00 Eosinophils 2 % (0-5) 10/23/16 05:00 PT 10.4 SECONDS (9.5-11.5) 10/23/16 05:00 INR 1.00 (0.5-1.4) 10/23/16 05:00 Sodium 130 mEq/L (136-145) L 10/26/16 05:37 Potassium 3.6 mEq/L (3.5-5.1) 10/26/16 05:37 Chloride 94 mEq/L (98-107) L 10/26/16 05:37 Carbon Dioxide 30.6 mEq/L (21.0-31.0) 10/26/16 05:37 Anion Gap 9.0 (7.0-16.0) 10/26/16 05:37 BUN 14 mg/dL (7-25) 10/26/16 05:37 Creatinine 0.4 mg/dL (0.6-1.2) L 10/26/16 05:37 Est GFR ( Amer) TNP 10/26/16 05:37 Est GFR (Non-Af Amer) TNP 10/26/16 05:37 BUN/Creatinine Ratio 35.0 10/26/16 05:37 Glucose 142 mg/dL (70-105) H 10/26/16 05:37 POC Glucose 149 MG/DL (70-105) H 10/23/16 14:52 Hemoglobin A1c % 6.8 % (4.0-6.0) H 10/21/16 23:26 Whole Bld Lactic Acid 3.06 mmol/L (0.60-1.99) H* 10/22/16 01:30 Calcium 8.5 mg/dL (8.6-10.3) L 10/26/16 05:37 Total Bilirubin 0.4 mg/dL (0.3-1.0) 10/25/16 06:58 AST 10 U/L (13-39) L 10/25/16 06:58 ALT 9 U/L (7-52) 10/25/16 06:58 Alkaline Phosphatase 93 U/L (34-104) 10/25/16 06:58 Total Protein 6.2 gm/dL (6.0-8.3) 10/25/16 06:58 Albumin 3.2 gm/dL (3.7-5.3) L 10/25/16 06:58 Globulin 3.0 gm/dL 10/25/16 06:58 Albumin/Globulin Ratio 1.1 (1.0-1.8) 10/25/16 06:58 Urine Source [place] 10/22/16 02:24 Urine Color YELLOW 10/22/16 02:24 Urine Clarity CLEAR (CLEAR) 10/22/16 02:24 Urine pH 7.0 (4.6 - 8.0) 10/22/16 02:24 Ur Specific [place] 1.010 (1.005-1.030) 10/22/16 02:24 Urine Protein NEGATIVE mg/dL (NEGATIVE) 10/22/16 02:24 Urine Glucose (UA) NEGATIVE mg/dL (NEGATIVE) 10/22/16 02:24 Urine Ketones NEGATIVE mg/dL (NEGATIVE) 10/22/16 02:24 Urine Blood SMALL (NEGATIVE) H 10/22/16 02:24 Urine Nitrate NEGATIVE (NEGATIVE) 10/22/16 02:24 Urine Bilirubin NEGATIVE (NEGATIVE) 10/22/16 02:24 Urine Urobilinogen 1.0 E.U./dL (0.2 - 1.0) 10/22/16 02:24 Ur Leukocyte Esterase NEGATIVE (NEGATIVE) 10/22/16 02:24 Urine RBC 5-10 /hpf (0-5) H 10/22/16 02:24 Urine WBC 0-2 /hpf (0-5) 10/22/16 02:24 Ur Epithelial Cells FEW /lpf (FEW) 10/22/16 02:24 Urine Bacteria FEW /hpf (NONE SEEN) 10/22/16 02:24 - Physical Exam Vitals and I&O: Vital Signs Temp 98.6 F 10/27/16 04:00 Pulse 77 10/27/16 08:49 Resp 18 10/27/16 04:00 BP 148/70 10/27/16 08:50 Pulse Ox 98 10/27/16 04:00 Intake & Output 10/26/16 10/27/16 10/27/16 18:59 06:59 18:59 Intake Total 500 450 Balance 500 450 Weight (lbs) 75.296 kg 75.478 kg Intake: Oral 500 450 Other: # Voids 2 5 # Bowel Movements 1 Active Medications: Current Medications Acetaminophen/Hydrocodone Bitart ([place] 5mg/325mg) 1 tab PO Q6H PRN PRN Reason: Pain (Mild) Stop: 12/23/16 08:33 Last Admin: 10/27/16 08:54 Dose: 1 tab Amlodipine Besylate (Norvasc) 10 mg PO DAILY [facility] Stop: 12/21/16 20:14 Last Admin: 10/27/16 08:49 Dose: 10 mg Docusate Sodium (Colace) 100 mg PO DAILY PRN PRN Reason: Constipation Stop: 12/23/16 08:59 Last Admin: 10/25/16 21:03 Dose: 100 mg Hydrochlorothiazide (Hctz) 25 mg PO DAILY [facility] Stop: 12/21/16 20:14 Last Admin: 10/27/16 08:50 Dose: 25 mg Lactobacillus Rhamnosus (Culturelle) 1 each PO DAILY [facility] Stop: 12/24/16 08:59 Last Admin: 10/27/16 08:49 Dose: 1 each Magnesium Hydroxide (Milk Of Magnesia) 30 ml PO HS PRN PRN Reason: Constipation Stop: 12/23/16 08:43 Miscellaneous (Probiotic Screen) 1 ea MC PRN PRN PRN Reason: PROTOCOL Stop: 12/23/16 10:06 Morphine Sulfate (Morphine) 1 mg IVP Q2HR PRN PRN Reason: Severe Pain Stop: 12/23/16 08:32 Last Admin: 10/26/16 18:24 Dose: 1 mg Multivitamins/Vitamin C (Theragran) 1 tab PO DAILY [facility] Stop: 12/23/16 08:59 Last Admin: 10/27/16 08:49 Dose: 1 tab Ondansetron HCl (Zofran) 4 mg IV Q6H PRN PRN Reason: Nausea / Vomiting Stop: 12/21/16 02:40 Last Admin: 10/23/16 12:10 Dose: 4 mg Rivaroxaban (Xarelto) 10 mg PO DAILY [facility] Stop: 12/23/16 08:59 Last Admin: 10/27/16 08:49 Dose: 10 mg General: no acute distress, well developed, well nourished HEENT: atraumatic, normocephalic, PERRLA, EOMI, moist mucous membrane Neck: supple, no thyromegaly, no rigid Cardiovascular: S1S2, regular Lungs: clear to auscultation bilaterally, clear to percussion Abdomen: soft, no tender, no distended, no hepatomegaly Extremities: other (left hip surgical wound.), no cyanosis, no clubbing, no edema Neurological: awake, alert, oriented Skin: intact - Procedures Procedures: Procedures Procedure Code Date REPOSITION LEFT UPPER FEMUR WITH INT FIX, OPEN APPROACH [id number] 10/22/16 TREAT THIGH FRACTURE 15956 10/22/16 Infectious Disease Assmt/Plan - Assessment Assessment: 1. Leukocytosis, likely reactive. 2. left hip fracture. 3. ORIF OF LEFT HIP. 4. Hypertension. - Plan Plan: off antibiotics. Nutritional Asmnt/Malnutr-PDOC - Dietary Evaluation Malnutrition Findings (Please click <Entered> for more info): Nutritional Asmnt/Malnutrition Start: 10/22/16 14: 16 Text: Status: Complete Freq: Document 10/22/16 14:17 GSUN (Rec: 10/22/16 14:35 GSUN MAINORFN) Nutritional Asmnt/Malnutrition Patient General Information Nutritional Screening High Risk Screening Diagnosis Reason for visit: left hip fracture Pertinent Medical Hx/Surgical Hx ER report: HTN, cataract surgery to left eye Subjective Information 81 year old female form home, [place] speaking. Spoke to pt and granddaughter at bedside who assisted with translations . Pt is unaware of elevated glucose levels. Pt usually with fiar appetite, sometimes skips dinner. RD explained importance of consistent meals and suggested CCHO diet to promote glycemic control, pt understood and agreed. UBW 140lb. Edentulous, pt reported no difficulties eating. No muscle fat wasting noted. Current Diet Order/ Nutrition Support Low sodium Pertinent Medications D5-0.45ns, Morphine, Zofran Pertinent Labs 10/21: potassium 2.9L, glucose 228H, A1c 6.8H Nutritional Hx/Data Height 1.47 m Height (Calculated Centimeters) 147.3 Current Weight (lbs) 61.825 kg Weight (Calculated Kilograms) 61.8 Weight (Calculated Grams) 79481.6 Usual body Weight (lbs) 140 [place] Body Weight 95 Recent Weight Change No Weight Status Overweight GI Symptoms Skin Integrity/Comment: Jaswinder 20. Skin intact. Estimated Nutritional Goals BEE in Kcals: Using Current wt Calories/Kcals/Kg CBW 136.3lb/62kg Kcals Calculated 1550-1860kcal (25-30kcal/kg) Protein: Using Current wt Protein Calculated 62g (1g/kg) Fluid: ml 1550-1860ml (1ml/kcal) Nutritional Problem 1. Problem Problem Altered nutrition related laboratory values related to Etiology unknown etiology aeb Signs/Symptoms: elevated glucose on adm 228, A1c 6.8 Intervention/Recommendation Comments 1. Recommend [address] to promote glycemic control. Expected Outcomes/Goals Expected Outcomes/Goals 1. PO intake to meet at least 75% of estimated nutritional needs.
--- NOTE | 2016-10-28 03:35 | Admit Criteria Form ---
Admit Criteria Forms - Admit Criteria Diagnosis: [facility] Clinical Indications for Admission to Inpatient Care (Place 'X' for any and all applicable criteria): Hospital admission is needed for appropriate care of the patient because of 1 or more of the following: [X ]I. Fracture, dislocation, or other musculoskeletal injury requiring inpatient care(medical) as indicated by 1 or more of the following(4)(5)(6)(7) [ ]a) Vertebral fracture requiring observation for instability or neurologic compromise (8) [ ]b) Compartment syndrome (proven or cannot be ruled out during observation level of care) (9) [ ]c) Limb-threatening injury [ ]d) Major injury requiring inpatient stabilization such as traction initiation or external fixation before internal fixation or closure of complex or open fracture [X ]e) Major injury requiring inpatient treatment after emergency or observation level care (as appropriate) [ ]f) Severe pain requiring acute inpatient management [ ]g) Injury with suspicion of abuse or neglect (eg., child, dependent elderly) [ ]II. Newly diagnosed or suspected bone, joint, or orthopedic device infection (e.g., osteomyelitis, septic arthritis) needing 1 or more of the following(1)(2)(3) [ ]a) IV antibiotics that cannot be initiated in other than inpatient setting (e.g., patient too unstable or home infusion not available) [ ]b) Device removal or replacement [ ]c) Bone or soft tissue debridement [ ]d) Joint drainage (drain placement or repetitive aspirations) [ ]III. Severe rheumatologic disease (e.g., systemic lupus erythematosus, rheumatoid arthritis) with complications or comorbidities (Also use Optimal Recovery Care Criteria or General Recovery Criteria as appropriate on the basis of predominant condition), including 1 or more of the following( 10)(11)(12)(13) [ ]a) Severe infection (e.g., GEOCHEMICAL LABORATORY TECHNICIAN infection, sepsis) (14) [ ]b) Respiratory complications, including 1 or more of the following : [ ]i) Pleural effusion with respiratory compromise [ ]ii) Pulmonary hypertension with congestive failure [ ]iii) Respiratory failure [ ]iv) Pulmonary hemorrhage (15) [ ]c) Hematologic disease, including 1 or more of the following: [ ]i) Coagulopathy with bleeding [ ]ii) Thrombosis with hypercoagulable state [ ]iii) Thrombotic thrombocytopenic purpura [ ]d) Cerebritis with seizures, psychosis, or other severe abnormalities [ ]e) Vertebral destruction with monitoring needed for cervical myelopathy& possible respiratory compromise [ ]f) Exacerbation that requires inpatient treatment (e.g., intravenous immunosuppression) (16) [ ]g) Acute renal failure [ ]h) Cerebritis with seizures, psychosis, Altered mental status, or other neurologic abnormalities [ ]i) Pericardial effusion with tamponade [ ]j) Vertebral destruction, with monitoring needed for cervical myelopathy and possible respiratory compromise [ ]IV. Severe vasculitis with complications or comorbidities (Also use Optimal Recovery Care Criteria General Recovery Criteria as appropriate on the basis of predominant condition), including 1 or more of the following(11)(12)(17)(18)(19)(20) [ ]a) Exacerbation that requires inpatient treatment (e.g., intravenous immunosuppression) (19)(21) [ ]b) Pulmonary hemorrhage (15) [ ]c) GEOCHEMICAL LABORATORY TECHNICIAN vasculitis with seizures, psychosis, Altered mental status that is severe or persistent, or other severe abnormalities (22) [ ]d) Cerebral infarction [ ]e) Gastrointestinal ischemia [ ]f) Gangrene or threatened amputation [ ]g) Renal failure (16) [ ]h) Other significant complications of vasculitis ( eg., tissue or organ ischemia, organ dysfunction ) [ ]V. Severe myopathy as indicated by 1 or more of the following (28)(29) [ ]a) New onset of airway compromise or inability to swallow [ ]b) Respiratory deterioration with observation needed for impending respiratory failure [ ]c) Exacerbation that requires inpatient treatment (e.g., intravenous immunosuppression) [ ]. Severe crystal gout (arthropathy) indicated by 1 or more of the following (23)(24) [ ]a) Severe pain requiring acute inpatient management [ ]b) Exacerbation that requires inpatient treatment (e.g., intravenous treatment) [ ]VII.Rhabdomyolysis and 1 or more of the following (25)(26)(27) [ ]a) Acute renal failure [ ]b) Need for intravenous hydration after emergency or observation level care (as appropriate) [ ]c) Inability to maintain oral hydration [ ]d) Change in mental status [ ]e) Electrolyte abnormality that remains after emergency or observation level care (as appropriate) [ ]VIII Post amputation complication, as indicated by ANY ONE of the following [ ]a) Infection [ ]b) Dehiscence [ ]c) Myodesis failure [ ]IX. Severe pain requiring acute inpatient management due to musculoskeletal condition [ ]X. Musculoskeletal Disease and ALL of the following: [ ]a) Symptom or finding for which emergency and observation care have failed or are not considered appropriate (Use General Criteria: Observation Care as appropriate) [ ]b) Presence of ANY ONE of the following [ ]i) A General Admission Criteria [ ]ii) A Pediatric General Admission Criteria The [facility] content created by [facility] has been revised. The portions of the content which have been revised are identified through the use of italic text or in bold, and [facility] has neither reviewed nor approved the modified material. All other unmodified content is copyright [facility]. Please see references footnoted in the original [facility] edition 2016 Admit Criteria Met?: Yes
[2016-10-28] MEDS: Morphine Sulfate 2 mg/mL 1mL Syr IVP PRN ×2 (05:09→08:57)
[2016-10-28] MEDS: Lactobacillus Rhamnosus 10 Billion CFU Capsule PO SCH (08:55)
[2016-10-28] MEDS: Multivitamin Tab PO SCH (08:55)
--- NOTE | 2016-10-28 14:50 | General Progress Note ---
Subjective - Review of Systems Service Date: 10/28/16 Subjective: pt doing fine patient reported no BM in last 4-5 days Objective - Results Result Diagrams: 10/26/16 05:37 10/26/16 05:37 Recent Labs: Laboratory Last Values WBC 10.5 Th/cmm (4.8-10.8) 10/26/16 05:37 RBC 3.68 Mil/cmm (3.80-5.20) L 10/26/16 05:37 Hgb 11.2 gm/dL (11.7-16.1) L 10/26/16 05:37 Hct 33.0 % (35.0-45.0) L 10/26/16 05:37 MCV 89.7 fl (81-100) 10/26/16 05:37 MCH 30.6 pg (27.0-31.0) 10/26/16 05:37 MCHC Differential 34.1 pg (28.0-36.0) 10/26/16 05:37 RDW 11.8 % (11.5-20.0) 10/26/16 05:37 Plt Count 280 Th/cmm (150-400) 10/26/16 05:37 MPV 8.2 fl 10/26/16 05:37 Neutrophils % 65.2 % (40.0-80.0) 10/26/16 05:37 Band Neutrophils % 4 % (0-10) 10/23/16 05:00 Lymphocytes % 21.2 % (20.0-50.0) 10/26/16 05:37 Monocytes % 8.1 % (2.0-10.0) 10/26/16 05:37 Eosinophils % 5.2 % (0.0-5.0) H 10/26/16 05:37 Basophils % 0.3 % (0.0-2.0) 10/26/16 05:37 Neutrophils (Manual) 81 % (40-80) H 10/23/16 05:00 Lymphocytes 9 % (20-50) L 10/23/16 05:00 Monocytes 3 % (2-10) 10/23/16 05:00 Eosinophils 2 % (0-5) 10/23/16 05:00 PT 10.4 SECONDS (9.5-11.5) 10/23/16 05:00 INR 1.00 (0.5-1.4) 10/23/16 05:00 Sodium 130 mEq/L (136-145) L 10/26/16 05:37 Potassium 3.6 mEq/L (3.5-5.1) 10/26/16 05:37 Chloride 94 mEq/L (98-107) L 10/26/16 05:37 Carbon Dioxide 30.6 mEq/L (21.0-31.0) 10/26/16 05:37 Anion Gap 9.0 (7.0-16.0) 10/26/16 05:37 BUN 14 mg/dL (7-25) 10/26/16 05:37 Creatinine 0.4 mg/dL (0.6-1.2) L 10/26/16 05:37 Est GFR ( Amer) TNP 10/26/16 05:37 Est GFR (Non-Af Amer) TNP 10/26/16 05:37 BUN/Creatinine Ratio 35.0 10/26/16 05:37 Glucose 142 mg/dL (70-105) H 10/26/16 05:37 POC Glucose 149 MG/DL (70-105) H 10/23/16 14:52 Hemoglobin A1c % 6.8 % (4.0-6.0) H 10/21/16 23:26 Whole Bld Lactic Acid 3.06 mmol/L (0.60-1.99) H* 10/22/16 01:30 Calcium 8.5 mg/dL (8.6-10.3) L 10/26/16 05:37 Total Bilirubin 0.4 mg/dL (0.3-1.0) 10/25/16 06:58 AST 10 U/L (13-39) L 10/25/16 06:58 ALT 9 U/L (7-52) 10/25/16 06:58 Alkaline Phosphatase 93 U/L (34-104) 10/25/16 06:58 Total Protein 6.2 gm/dL (6.0-8.3) 10/25/16 06:58 Albumin 3.2 gm/dL (3.7-5.3) L 10/25/16 06:58 Globulin 3.0 gm/dL 10/25/16 06:58 Albumin/Globulin Ratio 1.1 (1.0-1.8) 10/25/16 06:58 Urine Source [place] 10/22/16 02:24 Urine Color YELLOW 10/22/16 02:24 Urine Clarity CLEAR (CLEAR) 10/22/16 02:24 Urine pH 7.0 (4.6 - 8.0) 10/22/16 02:24 Ur Specific [place] 1.010 (1.005-1.030) 10/22/16 02:24 Urine Protein NEGATIVE mg/dL (NEGATIVE) 10/22/16 02:24 Urine Glucose (UA) NEGATIVE mg/dL (NEGATIVE) 10/22/16 02:24 Urine Ketones NEGATIVE mg/dL (NEGATIVE) 10/22/16 02:24 Urine Blood SMALL (NEGATIVE) H 10/22/16 02:24 Urine Nitrate NEGATIVE (NEGATIVE) 10/22/16 02:24 Urine Bilirubin NEGATIVE (NEGATIVE) 10/22/16 02:24 Urine Urobilinogen 1.0 E.U./dL (0.2 - 1.0) 10/22/16 02:24 Ur Leukocyte Esterase NEGATIVE (NEGATIVE) 10/22/16 02:24 Urine RBC 5-10 /hpf (0-5) H 10/22/16 02:24 Urine WBC 0-2 /hpf (0-5) 10/22/16 02:24 Ur Epithelial Cells FEW /lpf (FEW) 10/22/16 02:24 Urine Bacteria FEW /hpf (NONE SEEN) 10/22/16 02:24 - Physical Exam Vitals and I&O: Vital Signs Temp 97.8 F 10/28/16 12:00 Pulse 69 10/28/16 12:00 Resp 17 10/28/16 12:00 BP 128/57 10/28/16 12:00 Pulse Ox 95 10/28/16 12:00 Intake & Output 10/27/16 10/28/16 10/28/16 18:59 06:59 18:59 Intake Total 380 Balance 380 Weight (lbs) 75.931 kg Intake: Oral 380 Other: # Voids 4 # Bowel Movements 0 Active Medications: Current Medications Acetaminophen/Hydrocodone Bitart ([place] 5mg/325mg) 1 tab PO Q6H PRN PRN Reason: Pain (Mild) Stop: 12/23/16 08:33 Last Admin: 10/27/16 08:54 Dose: 1 tab Amlodipine Besylate (Norvasc) 10 mg PO DAILY [facility] Stop: 12/21/16 20:14 Last Admin: 10/28/16 08:55 Dose: 10 mg Bisacodyl (Dulcolax 10 Mg Supp) 10 mg RC X1 ONE Stop: 10/28/16 14:48 Docusate Sodium (Colace) 100 mg PO DAILY PRN PRN Reason: Constipation Stop: 12/23/16 08:59 Last Admin: 10/28/16 08:56 Dose: 100 mg Hydrochlorothiazide (Hctz) 25 mg PO DAILY [facility] Stop: 12/21/16 20:14 Last Admin: 10/28/16 08:55 Dose: 25 mg Lactobacillus Rhamnosus (Culturelle) 1 each PO DAILY [facility] Stop: 12/24/16 08:59 Last Admin: 10/28/16 08:55 Dose: 1 each Magnesium Hydroxide (Milk Of Magnesia) 30 ml PO HS PRN PRN Reason: Constipation Stop: 12/23/16 08:43 Miscellaneous (Probiotic Screen) 1 ea MC PRN PRN PRN Reason: PROTOCOL Stop: 12/23/16 10:06 Morphine Sulfate (Morphine) 1 mg IVP Q2HR PRN PRN Reason: Severe Pain Stop: 12/23/16 08:32 Last Admin: 10/28/16 08:57 Dose: 1 mg Multivitamins/Vitamin C (Theragran) 1 tab PO DAILY [facility] Stop: 12/23/16 08:59 Last Admin: 10/28/16 08:55 Dose: 1 tab Ondansetron HCl (Zofran) 4 mg IV Q6H PRN PRN Reason: Nausea / Vomiting Stop: 12/21/16 02:40 Last Admin: 10/23/16 12:10 Dose: 4 mg Rivaroxaban (Xarelto) 10 mg PO DAILY [facility] Stop: 12/23/16 08:59 Last Admin: 10/28/16 08:55 Dose: 10 mg Silver Sulfadiazine (Ssd) 1 appl TP BID GABRIELA PRN Reason: Protocol Stop: 12/27/16 16:59 Cardiovascular: Regular rate Lungs: Clear to auscultation Abdomen: Soft, no Tender Extremities: Other (no edema) Skin: Rash (Left flank area blister noted) - Procedures Procedures: Procedures Procedure Code Date REPOSITION LEFT UPPER FEMUR WITH INT FIX, OPEN APPROACH [id number] 10/22/16 TREAT THIGH FRACTURE 19901 10/22/16 Assessment/Plan - Assessment Assessment: Left pelvic fracture s/p ORIF UTI HTN Leucocytosis most likely reactive Constipation Rash - Plan Plan: Dulcolax suppository SSD cream PT/OT Family was updated on plan of care through nurse interpretor Nutritional Asmnt/Malnutr-PDOC - Dietary Evaluation Malnutrition Findings (Please click <Entered> for more info): Nutritional Asmnt/Malnutrition Start: 10/22/16 14: 16 Text: Status: Complete Freq: Document 10/22/16 14:17 GSUN (Rec: 10/22/16 14:35 GSUN [email or web address]) Nutritional Asmnt/Malnutrition Patient General Information Nutritional Screening High Risk Screening Diagnosis Reason for visit: left hip fracture Pertinent Medical Hx/Surgical Hx ER report: HTN, cataract surgery to left eye Subjective Information 81 year old female form home, Danish speaking. Spoke to pt and granddaughter at bedside who assisted with translations . Pt is unaware of elevated glucose levels. Pt usually with fiar appetite, sometimes skips dinner. RD explained importance of consistent meals and suggested CCHO diet to promote glycemic control, pt understood and agreed. UBW 140lb. Edentulous, pt reported no difficulties eating. No muscle fat wasting noted. Current Diet Order/ Nutrition Support Low sodium Pertinent Medications D5-0.45ns, Morphine, Zofran Pertinent Labs 10/21: potassium 2.9L, glucose 228H, A1c 6.8H Nutritional Hx/Data Height 1.47 m Height (Calculated Centimeters) 147.3 Current Weight (lbs) 61.825 kg Weight (Calculated Kilograms) 61.8 Weight (Calculated Grams) 03498.6 Usual body Weight (lbs) 140 [place] Body Weight 95 Recent Weight Change No Weight Status Overweight GI Symptoms Skin Integrity/Comment: Jaswinder 20. Skin intact. Estimated Nutritional Goals BEE in Kcals: Using Current wt Calories/Kcals/Kg CBW 136.3lb/62kg Kcals Calculated 1550-1860kcal (25-30kcal/kg) Protein: Using Current wt Protein Calculated 62g (1g/kg) Fluid: ml 1550-1860ml (1ml/kcal) Nutritional Problem 1. Problem Problem Altered nutrition related laboratory values related to Etiology unknown etiology aeb Signs/Symptoms: elevated glucose on adm 228, A1c 6.8 Intervention/Recommendation Comments 1. Recommend [id number] to promote glycemic control. Expected Outcomes/Goals Expected Outcomes/Goals 1. PO intake to meet at least 75% of estimated nutritional needs.
[2016-10-29] MEDS: Multivitamin Tab PO SCH (09:41)
[2016-10-29] MEDS: Lactobacillus Rhamnosus 10 Billion CFU Capsule PO SCH (09:41)
[2016-10-29] MEDS: Hydrocodone/APAP 5mg/325mg Tab PO PRN ×2 (09:43→21:59)
[2016-10-30] MEDS: Multivitamin Tab PO SCH (08:58)
[2016-10-30] MEDS: Lactobacillus Rhamnosus 10 Billion CFU Capsule PO SCH (08:58)
[2016-10-30] MEDS: Morphine Sulfate 2 mg/mL 1mL Syr IVP PRN ×2 (16:43→23:03)
[2016-10-30] MEDS: Hydrocodone/APAP 5mg/325mg Tab PO PRN (20:52)
[2016-10-30] MEDS: Magnesium Hydroxide (MOM) 30 mL UDC PO PRN (20:52)
[2016-10-31] MEDS: Hydrocodone/APAP 5mg/325mg Tab PO PRN (05:45)
[2016-10-31] MEDS: Multivitamin Tab PO SCH (09:57)
[2016-10-31] MEDS: Lactobacillus Rhamnosus 10 Billion CFU Capsule PO SCH (09:57)
[2016-10-31] MEDS: Morphine Sulfate 2 mg/mL 1mL Syr IVP PRN ×2 (10:23→16:55)
--- NOTE | 2016-10-31 18:52 | General Progress Note ---
Subjective - Review of Systems Service Date: 10/29/16 Subjective: pt doing fine no new event Objective - Results Result Diagrams: 10/26/16 05:37 10/26/16 05:37 Recent Labs: Laboratory Last Values WBC 10.5 Th/cmm (4.8-10.8) 10/26/16 05:37 RBC 3.68 Mil/cmm (3.80-5.20) L 10/26/16 05:37 Hgb 11.2 gm/dL (11.7-16.1) L 10/26/16 05:37 Hct 33.0 % (35.0-45.0) L 10/26/16 05:37 MCV 89.7 fl (81-100) 10/26/16 05:37 MCH 30.6 pg (27.0-31.0) 10/26/16 05:37 MCHC Differential 34.1 pg (28.0-36.0) 10/26/16 05:37 RDW 11.8 % (11.5-20.0) 10/26/16 05:37 Plt Count 280 Th/cmm (150-400) 10/26/16 05:37 MPV 8.2 fl 10/26/16 05:37 Neutrophils % 65.2 % (40.0-80.0) 10/26/16 05:37 Band Neutrophils % 4 % (0-10) 10/23/16 05:00 Lymphocytes % 21.2 % (20.0-50.0) 10/26/16 05:37 Monocytes % 8.1 % (2.0-10.0) 10/26/16 05:37 Eosinophils % 5.2 % (0.0-5.0) H 10/26/16 05:37 Basophils % 0.3 % (0.0-2.0) 10/26/16 05:37 Neutrophils (Manual) 81 % (40-80) H 10/23/16 05:00 Lymphocytes 9 % (20-50) L 10/23/16 05:00 Monocytes 3 % (2-10) 10/23/16 05:00 Eosinophils 2 % (0-5) 10/23/16 05:00 PT 10.4 SECONDS (9.5-11.5) 10/23/16 05:00 INR 1.00 (0.5-1.4) 10/23/16 05:00 Sodium 130 mEq/L (136-145) L 10/26/16 05:37 Potassium 3.6 mEq/L (3.5-5.1) 10/26/16 05:37 Chloride 94 mEq/L (98-107) L 10/26/16 05:37 Carbon Dioxide 30.6 mEq/L (21.0-31.0) 10/26/16 05:37 Anion Gap 9.0 (7.0-16.0) 10/26/16 05:37 BUN 14 mg/dL (7-25) 10/26/16 05:37 Creatinine 0.4 mg/dL (0.6-1.2) L 10/26/16 05:37 Est GFR ( Amer) TNP 10/26/16 05:37 Est GFR (Non-Af Amer) TNP 10/26/16 05:37 BUN/Creatinine Ratio 35.0 10/26/16 05:37 Glucose 142 mg/dL (70-105) H 10/26/16 05:37 POC Glucose 149 MG/DL (70-105) H 10/23/16 14:52 Hemoglobin A1c % 6.8 % (4.0-6.0) H 10/21/16 23:26 Whole Bld Lactic Acid 3.06 mmol/L (0.60-1.99) H* 10/22/16 01:30 Calcium 8.5 mg/dL (8.6-10.3) L 10/26/16 05:37 Total Bilirubin 0.4 mg/dL (0.3-1.0) 10/25/16 06:58 AST 10 U/L (13-39) L 10/25/16 06:58 ALT 9 U/L (7-52) 10/25/16 06:58 Alkaline Phosphatase 93 U/L (34-104) 10/25/16 06:58 Total Protein 6.2 gm/dL (6.0-8.3) 10/25/16 06:58 Albumin 3.2 gm/dL (3.7-5.3) L 10/25/16 06:58 Globulin 3.0 gm/dL 10/25/16 06:58 Albumin/Globulin Ratio 1.1 (1.0-1.8) 10/25/16 06:58 Urine Source [place] 10/22/16 02:24 Urine Color YELLOW 10/22/16 02:24 Urine Clarity CLEAR (CLEAR) 10/22/16 02:24 Urine pH 7.0 (4.6 - 8.0) 10/22/16 02:24 Ur Specific [place] 1.010 (1.005-1.030) 10/22/16 02:24 Urine Protein NEGATIVE mg/dL (NEGATIVE) 10/22/16 02:24 Urine Glucose (UA) NEGATIVE mg/dL (NEGATIVE) 10/22/16 02:24 Urine Ketones NEGATIVE mg/dL (NEGATIVE) 10/22/16 02:24 Urine Blood SMALL (NEGATIVE) H 10/22/16 02:24 Urine Nitrate NEGATIVE (NEGATIVE) 10/22/16 02:24 Urine Bilirubin NEGATIVE (NEGATIVE) 10/22/16 02:24 Urine Urobilinogen 1.0 E.U./dL (0.2 - 1.0) 10/22/16 02:24 Ur Leukocyte Esterase NEGATIVE (NEGATIVE) 10/22/16 02:24 Urine RBC 5-10 /hpf (0-5) H 10/22/16 02:24 Urine WBC 0-2 /hpf (0-5) 10/22/16 02:24 Ur Epithelial Cells FEW /lpf (FEW) 10/22/16 02:24 Urine Bacteria FEW /hpf (NONE SEEN) 10/22/16 02:24 - Physical Exam Vitals and I&O: Vital Signs Temp 98.8 F 10/31/16 16:27 Pulse 71 10/31/16 16:27 Resp 18 10/31/16 16:27 BP 126/56 10/31/16 16:27 Pulse Ox 96 10/31/16 16:27 Intake & Output 10/30/16 10/31/16 10/31/16 18:59 06:59 18:59 Weight (lbs) 74.843 kg 74.843 kg Other: # Voids 2 # Bowel Movements 0 Stool Characteristics Soft Active Medications: Current Medications Acetaminophen/Hydrocodone Bitart ([place] 5mg/325mg) 1 tab PO Q6H PRN PRN Reason: Pain (Mild) Stop: 12/23/16 08:33 Last Admin: 10/31/16 05:45 Dose: 1 tab Amlodipine Besylate (Norvasc) 10 mg PO DAILY [facility] Stop: 12/21/16 20:14 Last Admin: 10/31/16 09:55 Dose: 10 mg Docusate Sodium (Colace) 100 mg PO DAILY PRN PRN Reason: Constipation Stop: 12/23/16 08:59 Last Admin: 10/30/16 20:52 Dose: 100 mg Hydrochlorothiazide (Hctz) 25 mg PO DAILY G[facility]ELA Stop: 12/21/16 20:14 Last Admin: 10/31/16 09:56 Dose: 25 mg Lactobacillus Rhamnosus (Culturelle) 1 each PO DAILY [facility] Stop: 12/24/16 08:59 Last Admin: 10/31/16 09:57 Dose: 1 each Magnesium Hydroxide (Milk Of Magnesia) 30 ml PO HS PRN PRN Reason: Constipation Stop: 12/23/16 08:43 Last Admin: 10/30/16 20:52 Dose: 30 ml Miscellaneous (Probiotic Screen) 1 ea MC PRN PRN PRN Reason: PROTOCOL Stop: 12/23/16 10:06 Morphine Sulfate (Morphine) 1 mg IVP Q2HR PRN PRN Reason: Severe Pain Stop: 12/23/16 08:32 Last Admin: 10/31/16 16:55 Dose: 1 mg Multivitamins/Vitamin C (Theragran) 1 tab PO DAILY [facility] Stop: 12/23/16 08:59 Last Admin: 10/31/16 09:57 Dose: 1 tab Ondansetron HCl (Zofran) 4 mg IV Q6H PRN PRN Reason: Nausea / Vomiting Stop: 12/21/16 02:40 Last Admin: 10/23/16 12:10 Dose: 4 mg Rivaroxaban (Xarelto) 10 mg PO DAILY [facility] Stop: 12/23/16 08:59 Last Admin: 10/31/16 09:56 Dose: 10 mg Silver Sulfadiazine (Ssd) 1 appl TP BID GABRIELA PRN Reason: Protocol Stop: 12/27/16 16:59 Last Admin: 10/31/16 17:17 Dose: 1 appl Cardiovascular: Regular rate Lungs: Clear to auscultation Abdomen: Soft, no Tender Extremities: Other (no edema) Skin: Rash (Left flank area blister noted) - Procedures Procedures: Procedures Procedure Code Date REPOSITION LEFT UPPER FEMUR WITH INT FIX, OPEN APPROACH [id number] 10/22/16 TREAT THIGH FRACTURE 25118 10/22/16 Assessment/Plan - Assessment Assessment: Left pelvic fracture s/p ORIF UTI HTN Leucocytosis most likely reactive Constipation Rash - Plan Plan: Continue Rehab Continue current meds Nutritional Asmnt/Malnutr-PDOC - Dietary Evaluation Malnutrition Findings (Please click <Entered> for more info): Nutritional Asmnt/Malnutrition Start: 10/22/16 14: 16 Text: Status: Complete Freq: Document 10/22/16 14:17 GSUN (Rec: 10/22/16 14:35 GSUN [email or web address]) Nutritional Asmnt/Malnutrition Patient General Information Nutritional Screening High Risk Screening Diagnosis Reason for visit: left hip fracture Pertinent Medical Hx/Surgical Hx ER report: HTN, cataract surgery to left eye Subjective Information 81 year old female form home, Trinidadian speaking. Spoke to pt and granddaughter at bedside who assisted with translations . Pt is unaware of elevated glucose levels. Pt usually with fiar appetite, sometimes skips dinner. RD explained importance of consistent meals and suggested CCHO diet to promote glycemic control, pt understood and agreed. UBW 140lb. Edentulous, pt reported no difficulties eating. No muscle fat wasting noted. Current Diet Order/ Nutrition Support Low sodium Pertinent Medications D5-0.45ns, Morphine, Zofran Pertinent Labs 10/21: potassium 2.9L, glucose 228H, A1c 6.8H Nutritional Hx/Data Height 1.47 m Height (Calculated Centimeters) 147.3 Current Weight (lbs) 61.825 kg Weight (Calculated Kilograms) 61.8 Weight (Calculated Grams) 25908.6 Usual body Weight (lbs) 140 [place] Body Weight 95 Recent Weight Change No Weight Status Overweight GI Symptoms Skin Integrity/Comment: Jaswinder 20. Skin intact. Estimated Nutritional Goals BEE in Kcals: Using Current wt Calories/Kcals/Kg CBW 136.3lb/62kg Kcals Calculated 1550-1860kcal (25-30kcal/kg) Protein: Using Current wt Protein Calculated 62g (1g/kg) Fluid: ml 1550-1860ml (1ml/kcal) Nutritional Problem 1. Problem Problem Altered nutrition related laboratory values related to Etiology unknown etiology aeb Signs/Symptoms: elevated glucose on adm 228, A1c 6.8 Intervention/Recommendation Comments 1. Recommend [id number] to promote glycemic control. Expected Outcomes/Goals Expected Outcomes/Goals 1. PO intake to meet at least 75% of estimated nutritional needs.
--- NOTE | 2016-10-31 18:53 | General Progress Note ---
Subjective - Review of Systems Service Date: 10/30/16 Subjective: pt doing fine no new event Objective - Results Result Diagrams: 10/26/16 05:37 10/26/16 05:37 Recent Labs: Laboratory Last Values WBC 10.5 Th/cmm (4.8-10.8) 10/26/16 05:37 RBC 3.68 Mil/cmm (3.80-5.20) L 10/26/16 05:37 Hgb 11.2 gm/dL (11.7-16.1) L 10/26/16 05:37 Hct 33.0 % (35.0-45.0) L 10/26/16 05:37 MCV 89.7 fl (81-100) 10/26/16 05:37 MCH 30.6 pg (27.0-31.0) 10/26/16 05:37 MCHC Differential 34.1 pg (28.0-36.0) 10/26/16 05:37 RDW 11.8 % (11.5-20.0) 10/26/16 05:37 Plt Count 280 Th/cmm (150-400) 10/26/16 05:37 MPV 8.2 fl 10/26/16 05:37 Neutrophils % 65.2 % (40.0-80.0) 10/26/16 05:37 Band Neutrophils % 4 % (0-10) 10/23/16 05:00 Lymphocytes % 21.2 % (20.0-50.0) 10/26/16 05:37 Monocytes % 8.1 % (2.0-10.0) 10/26/16 05:37 Eosinophils % 5.2 % (0.0-5.0) H 10/26/16 05:37 Basophils % 0.3 % (0.0-2.0) 10/26/16 05:37 Neutrophils (Manual) 81 % (40-80) H 10/23/16 05:00 Lymphocytes 9 % (20-50) L 10/23/16 05:00 Monocytes 3 % (2-10) 10/23/16 05:00 Eosinophils 2 % (0-5) 10/23/16 05:00 PT 10.4 SECONDS (9.5-11.5) 10/23/16 05:00 INR 1.00 (0.5-1.4) 10/23/16 05:00 Sodium 130 mEq/L (136-145) L 10/26/16 05:37 Potassium 3.6 mEq/L (3.5-5.1) 10/26/16 05:37 Chloride 94 mEq/L (98-107) L 10/26/16 05:37 Carbon Dioxide 30.6 mEq/L (21.0-31.0) 10/26/16 05:37 Anion Gap 9.0 (7.0-16.0) 10/26/16 05:37 BUN 14 mg/dL (7-25) 10/26/16 05:37 Creatinine 0.4 mg/dL (0.6-1.2) L 10/26/16 05:37 Est GFR ( Amer) TNP 10/26/16 05:37 Est GFR (Non-Af Amer) TNP 10/26/16 05:37 BUN/Creatinine Ratio 35.0 10/26/16 05:37 Glucose 142 mg/dL (70-105) H 10/26/16 05:37 POC Glucose 149 MG/DL (70-105) H 10/23/16 14:52 Hemoglobin A1c % 6.8 % (4.0-6.0) H 10/21/16 23:26 Whole Bld Lactic Acid 3.06 mmol/L (0.60-1.99) H* 10/22/16 01:30 Calcium 8.5 mg/dL (8.6-10.3) L 10/26/16 05:37 Total Bilirubin 0.4 mg/dL (0.3-1.0) 10/25/16 06:58 AST 10 U/L (13-39) L 10/25/16 06:58 ALT 9 U/L (7-52) 10/25/16 06:58 Alkaline Phosphatase 93 U/L (34-104) 10/25/16 06:58 Total Protein 6.2 gm/dL (6.0-8.3) 10/25/16 06:58 Albumin 3.2 gm/dL (3.7-5.3) L 10/25/16 06:58 Globulin 3.0 gm/dL 10/25/16 06:58 Albumin/Globulin Ratio 1.1 (1.0-1.8) 10/25/16 06:58 Urine Source [place] 10/22/16 02:24 Urine Color YELLOW 10/22/16 02:24 Urine Clarity CLEAR (CLEAR) 10/22/16 02:24 Urine pH 7.0 (4.6 - 8.0) 10/22/16 02:24 Ur Specific [place] 1.010 (1.005-1.030) 10/22/16 02:24 Urine Protein NEGATIVE mg/dL (NEGATIVE) 10/22/16 02:24 Urine Glucose (UA) NEGATIVE mg/dL (NEGATIVE) 10/22/16 02:24 Urine Ketones NEGATIVE mg/dL (NEGATIVE) 10/22/16 02:24 Urine Blood SMALL (NEGATIVE) H 10/22/16 02:24 Urine Nitrate NEGATIVE (NEGATIVE) 10/22/16 02:24 Urine Bilirubin NEGATIVE (NEGATIVE) 10/22/16 02:24 Urine Urobilinogen 1.0 E.U./dL (0.2 - 1.0) 10/22/16 02:24 Ur Leukocyte Esterase NEGATIVE (NEGATIVE) 10/22/16 02:24 Urine RBC 5-10 /hpf (0-5) H 10/22/16 02:24 Urine WBC 0-2 /hpf (0-5) 10/22/16 02:24 Ur Epithelial Cells FEW /lpf (FEW) 10/22/16 02:24 Urine Bacteria FEW /hpf (NONE SEEN) 10/22/16 02:24 - Physical Exam Vitals and I&O: Vital Signs Temp 98.8 F 10/31/16 16:27 Pulse 71 10/31/16 16:27 Resp 18 10/31/16 16:27 BP 126/56 10/31/16 16:27 Pulse Ox 96 10/31/16 16:27 Intake & Output 10/30/16 10/31/16 10/31/16 18:59 06:59 18:59 Weight (lbs) 74.843 kg 74.843 kg Other: # Voids 2 # Bowel Movements 0 Stool Characteristics Soft Active Medications: Current Medications Acetaminophen/Hydrocodone Bitart ([place] 5mg/325mg) 1 tab PO Q6H PRN PRN Reason: Pain (Mild) Stop: 12/23/16 08:33 Last Admin: 10/31/16 05:45 Dose: 1 tab Amlodipine Besylate (Norvasc) 10 mg PO DAILY [facility] Stop: 12/21/16 20:14 Last Admin: 10/31/16 09:55 Dose: 10 mg Docusate Sodium (Colace) 100 mg PO DAILY PRN PRN Reason: Constipation Stop: 12/23/16 08:59 Last Admin: 10/30/16 20:52 Dose: 100 mg Hydrochlorothiazide (Hctz) 25 mg PO DAILY [facility] Stop: 12/21/16 20:14 Last Admin: 10/31/16 09:56 Dose: 25 mg Lactobacillus Rhamnosus (Culturelle) 1 each PO DAILY [facility] Stop: 12/24/16 08:59 Last Admin: 10/31/16 09:57 Dose: 1 each Magnesium Hydroxide (Milk Of Magnesia) 30 ml PO HS PRN PRN Reason: Constipation Stop: 12/23/16 08:43 Last Admin: 10/30/16 20:52 Dose: 30 ml Miscellaneous (Probiotic Screen) 1 ea MC PRN PRN PRN Reason: PROTOCOL Stop: 12/23/16 10:06 Morphine Sulfate (Morphine) 1 mg IVP Q2HR PRN PRN Reason: Severe Pain Stop: 12/23/16 08:32 Last Admin: 10/31/16 16:55 Dose: 1 mg Multivitamins/Vitamin C (Theragran) 1 tab PO DAILY [facility] Stop: 12/23/16 08:59 Last Admin: 10/31/16 09:57 Dose: 1 tab Ondansetron HCl (Zofran) 4 mg IV Q6H PRN PRN Reason: Nausea / Vomiting Stop: 12/21/16 02:40 Last Admin: 10/23/16 12:10 Dose: 4 mg Rivaroxaban (Xarelto) 10 mg PO DAILY [facility] Stop: 12/23/16 08:59 Last Admin: 10/31/16 09:56 Dose: 10 mg Silver Sulfadiazine (Ssd) 1 appl TP BID [facility] PRN Reason: Protocol Stop: 12/27/16 16:59 Last Admin: 10/31/16 17:17 Dose: 1 appl Cardiovascular: Regular rate Lungs: Clear to auscultation Abdomen: Soft, no Tender Extremities: Other (no edema) Skin: Rash (Left flank area blister noted) - Procedures Procedures: Procedures Procedure Code Date REPOSITION LEFT UPPER FEMUR WITH INT FIX, OPEN APPROACH [id number] 10/22/16 TREAT THIGH FRACTURE 59842 10/22/16 Assessment/Plan - Assessment Assessment: Left pelvic fracture s/p ORIF UTI HTN Leucocytosis most likely reactive Constipation Rash - Plan Plan: Continue Rehab Skin care Family was updated on pt's condition Continue current meds Nutritional Asmnt/Malnutr-PDOC - Dietary Evaluation Malnutrition Findings (Please click <Entered> for more info): Nutritional Asmnt/Malnutrition Start: 10/22/16 14: 16 Text: Status: Complete Freq: Document 10/22/16 14:17 GSUN (Rec: 10/22/16 14:35 [email or web address] [email or web address]) Nutritional Asmnt/Malnutrition Patient General Information Nutritional Screening High Risk Screening Diagnosis Reason for visit: left hip fracture Pertinent Medical Hx/Surgical Hx ER report: HTN, cataract surgery to left eye Subjective Information 81 year old female form home, Moh[place] speaking. Spoke to pt and granddaughter at bedside who assisted with translations . Pt is unaware of elevated glucose levels. Pt usually with fiar appetite, sometimes skips dinner. RD explained importance of consistent meals and suggested CCHO diet to promote glycemic control, pt understood and agreed. UBW 140lb. Edentulous, pt reported no difficulties eating. No muscle fat wasting noted. Current Diet Order/ Nutrition Support Low sodium Pertinent Medications D5-0.45ns, Morphine, Zofran Pertinent Labs 10/21: potassium 2.9L, glucose 228H, A1c 6.8H Nutritional Hx/Data Height 1.47 m Height (Calculated Centimeters) 147.3 Current Weight (lbs) 61.825 kg Weight (Calculated Kilograms) 61.8 Weight (Calculated Grams) 95335.6 Usual body Weight (lbs) 140 [place] Body Weight 95 Recent Weight Change No Weight Status Overweight GI Symptoms Skin Integrity/Comment: Jaswinder 20. Skin intact. Estimated Nutritional Goals BEE in Kcals: Using Current wt Calories/Kcals/Kg CBW 136.3lb/62kg Kcals Calculated 1550-1860kcal (25-30kcal/kg) Protein: Using Current wt Protein Calculated 62g (1g/kg) Fluid: ml 1550-1860ml (1ml/kcal) Nutritional Problem 1. Problem Problem Altered nutrition related laboratory values related to Etiology unknown etiology aeb Signs/Symptoms: elevated glucose on adm 228, A1c 6.8 Intervention/Recommendation Comments 1. Recommend [id number] to promote glycemic control. Expected Outcomes/Goals Expected Outcomes/Goals 1. PO intake to meet at least 75% of estimated nutritional needs.
--- NOTE | 2016-10-31 18:55 | General Progress Note ---
Subjective - Review of Systems Service Date: 10/31/16 Subjective: pt seen and examined family was at the bedside Objective - Results Result Diagrams: 10/26/16 05:37 10/26/16 05:37 Recent Labs: Laboratory Last Values WBC 10.5 Th/cmm (4.8-10.8) 10/26/16 05:37 RBC 3.68 Mil/cmm (3.80-5.20) L 10/26/16 05:37 Hgb 11.2 gm/dL (11.7-16.1) L 10/26/16 05:37 Hct 33.0 % (35.0-45.0) L 10/26/16 05:37 MCV 89.7 fl (81-100) 10/26/16 05:37 MCH 30.6 pg (27.0-31.0) 10/26/16 05:37 MCHC Differential 34.1 pg (28.0-36.0) 10/26/16 05:37 RDW 11.8 % (11.5-20.0) 10/26/16 05:37 Plt Count 280 Th/cmm (150-400) 10/26/16 05:37 MPV 8.2 fl 10/26/16 05:37 Neutrophils % 65.2 % (40.0-80.0) 10/26/16 05:37 Band Neutrophils % 4 % (0-10) 10/23/16 05:00 Lymphocytes % 21.2 % (20.0-50.0) 10/26/16 05:37 Monocytes % 8.1 % (2.0-10.0) 10/26/16 05:37 Eosinophils % 5.2 % (0.0-5.0) H 10/26/16 05:37 Basophils % 0.3 % (0.0-2.0) 10/26/16 05:37 Neutrophils (Manual) 81 % (40-80) H 10/23/16 05:00 Lymphocytes 9 % (20-50) L 10/23/16 05:00 Monocytes 3 % (2-10) 10/23/16 05:00 Eosinophils 2 % (0-5) 10/23/16 05:00 PT 10.4 SECONDS (9.5-11.5) 10/23/16 05:00 INR 1.00 (0.5-1.4) 10/23/16 05:00 Sodium 130 mEq/L (136-145) L 10/26/16 05:37 Potassium 3.6 mEq/L (3.5-5.1) 10/26/16 05:37 Chloride 94 mEq/L (98-107) L 10/26/16 05:37 Carbon Dioxide 30.6 mEq/L (21.0-31.0) 10/26/16 05:37 Anion Gap 9.0 (7.0-16.0) 10/26/16 05:37 BUN 14 mg/dL (7-25) 10/26/16 05:37 Creatinine 0.4 mg/dL (0.6-1.2) L 10/26/16 05:37 Est GFR ( Amer) TNP 10/26/16 05:37 Est GFR (Non-Af Amer) TNP 10/26/16 05:37 BUN/Creatinine Ratio 35.0 10/26/16 05:37 Glucose 142 mg/dL (70-105) H 10/26/16 05:37 POC Glucose 149 MG/DL (70-105) H 10/23/16 14:52 Hemoglobin A1c % 6.8 % (4.0-6.0) H 10/21/16 23:26 Whole Bld Lactic Acid 3.06 mmol/L (0.60-1.99) H* 10/22/16 01:30 Calcium 8.5 mg/dL (8.6-10.3) L 10/26/16 05:37 Total Bilirubin 0.4 mg/dL (0.3-1.0) 10/25/16 06:58 AST 10 U/L (13-39) L 10/25/16 06:58 ALT 9 U/L (7-52) 10/25/16 06:58 Alkaline Phosphatase 93 U/L (34-104) 10/25/16 06:58 Total Protein 6.2 gm/dL (6.0-8.3) 10/25/16 06:58 Albumin 3.2 gm/dL (3.7-5.3) L 10/25/16 06:58 Globulin 3.0 gm/dL 10/25/16 06:58 Albumin/Globulin Ratio 1.1 (1.0-1.8) 10/25/16 06:58 Urine Source [place] 10/22/16 02:24 Urine Color YELLOW 10/22/16 02:24 Urine Clarity CLEAR (CLEAR) 10/22/16 02:24 Urine pH 7.0 (4.6 - 8.0) 10/22/16 02:24 Ur Specific [place] 1.010 (1.005-1.030) 10/22/16 02:24 Urine Protein NEGATIVE mg/dL (NEGATIVE) 10/22/16 02:24 Urine Glucose (UA) NEGATIVE mg/dL (NEGATIVE) 10/22/16 02:24 Urine Ketones NEGATIVE mg/dL (NEGATIVE) 10/22/16 02:24 Urine Blood SMALL (NEGATIVE) H 10/22/16 02:24 Urine Nitrate NEGATIVE (NEGATIVE) 10/22/16 02:24 Urine Bilirubin NEGATIVE (NEGATIVE) 10/22/16 02:24 Urine Urobilinogen 1.0 E.U./dL (0.2 - 1.0) 10/22/16 02:24 Ur Leukocyte Esterase NEGATIVE (NEGATIVE) 10/22/16 02:24 Urine RBC 5-10 /hpf (0-5) H 10/22/16 02:24 Urine WBC 0-2 /hpf (0-5) 10/22/16 02:24 Ur Epithelial Cells FEW /lpf (FEW) 10/22/16 02:24 Urine Bacteria FEW /hpf (NONE SEEN) 10/22/16 02:24 - Physical Exam Vitals and I&O: Vital Signs Temp 98.8 F 10/31/16 16:27 Pulse 71 10/31/16 16:27 Resp 18 10/31/16 16:27 BP 126/56 10/31/16 16:27 Pulse Ox 96 10/31/16 16:27 Intake & Output 10/30/16 10/31/16 10/31/16 18:59 06:59 18:59 Weight (lbs) 74.843 kg 74.843 kg Other: # Voids 2 # Bowel Movements 0 Stool Characteristics Soft Active Medications: Current Medications Acetaminophen/Hydrocodone Bitart ([place] 5mg/325mg) 1 tab PO Q6H PRN PRN Reason: Pain (Mild) Stop: 12/23/16 08:33 Last Admin: 10/31/16 05:45 Dose: 1 tab Amlodipine Besylate (Norvasc) 10 mg PO DAILY [facility] Stop: 12/21/16 20:14 Last Admin: 10/31/16 09:55 Dose: 10 mg Docusate Sodium (Colace) 100 mg PO DAILY PRN PRN Reason: Constipation Stop: 12/23/16 08:59 Last Admin: 10/30/16 20:52 Dose: 100 mg Hydrochlorothiazide (Hctz) 25 mg PO DAILY [facility] Stop: 12/21/16 20:14 Last Admin: 10/31/16 09:56 Dose: 25 mg Lactobacillus Rhamnosus (Culturelle) 1 each PO DAILY [facility] Stop: 12/24/16 08:59 Last Admin: 10/31/16 09:57 Dose: 1 each Magnesium Hydroxide (Milk Of Magnesia) 30 ml PO HS PRN PRN Reason: Constipation Stop: 12/23/16 08:43 Last Admin: 10/30/16 20:52 Dose: 30 ml Miscellaneous (Probiotic Screen) 1 ea MC PRN PRN PRN Reason: PROTOCOL Stop: 12/23/16 10:06 Morphine Sulfate (Morphine) 1 mg IVP Q2HR PRN PRN Reason: Severe Pain Stop: 12/23/16 08:32 Last Admin: 10/31/16 16:55 Dose: 1 mg Multivitamins/Vitamin C (Theragran) 1 tab PO DAILY [facility] Stop: 12/23/16 08:59 Last Admin: 10/31/16 09:57 Dose: 1 tab Ondansetron HCl (Zofran) 4 mg IV Q6H PRN PRN Reason: Nausea / Vomiting Stop: 12/21/16 02:40 Last Admin: 10/23/16 12:10 Dose: 4 mg Rivaroxaban (Xarelto) 10 mg PO DAILY [facility] Stop: 12/23/16 08:59 Last Admin: 10/31/16 09:56 Dose: 10 mg Silver Sulfadiazine (Ssd) 1 appl TP BID [facility] PRN Reason: Protocol Stop: 12/27/16 16:59 Last Admin: 10/31/16 17:17 Dose: 1 appl Cardiovascular: Regular rate Lungs: Clear to auscultation Abdomen: Soft, no Tender Extremities: Other (no edema) Skin: Rash (Left flank area blister noted) - Procedures Procedures: Procedures Procedure Code Date REPOSITION LEFT UPPER FEMUR WITH INT FIX, OPEN APPROACH [id number] 10/22/16 TREAT THIGH FRACTURE 87110 10/22/16 Assessment/Plan - Assessment Assessment: Left pelvic fracture s/p ORIF HTN Debility - Plan Plan: Continue Rehab Skin care Family was updated on pt's condition Continue current meds Nutritional Asmnt/Malnutr-PDOC - Dietary Evaluation Malnutrition Findings (Please click <Entered> for more info): Nutritional Asmnt/Malnutrition Start: 10/22/16 14: 16 Text: Status: Complete Freq: Document 10/22/16 14:17 GSUN (Rec: 10/22/16 14:35 [email or web address] [email or web address]) Nutritional Asmnt/Malnutrition Patient General Information Nutritional Screening High Risk Screening Diagnosis Reason for visit: left hip fracture Pertinent Medical Hx/Surgical Hx ER report: HTN, cataract surgery to left eye Subjective Information 81 year old female form home, [place] speaking. Spoke to pt and granddaughter at bedside who assisted with translations . Pt is unaware of elevated glucose levels. Pt usually with fiar appetite, sometimes skips dinner. RD explained importance of consistent meals and suggested CCHO diet to promote glycemic control, pt understood and agreed. UBW 140lb. Edentulous, pt reported no difficulties eating. No muscle fat wasting noted. Current Diet Order/ Nutrition Support Low sodium Pertinent Medications D5-0.45ns, Morphine, Zofran Pertinent Labs 10/21: potassium 2.9L, glucose 228H, A1c 6.8H Nutritional Hx/Data Height 1.47 m Height (Calculated Centimeters) 147.3 Current Weight (lbs) 61.825 kg Weight (Calculated Kilograms) 61.8 Weight (Calculated Grams) 89271.6 Usual body Weight (lbs) 140 [place] Body Weight 95 Recent Weight Change No Weight Status Overweight GI Symptoms Skin Integrity/Comment: Jaswinder 20. Skin intact. Estimated Nutritional Goals BEE in Kcals: Using Current wt Calories/Kcals/Kg CBW 136.3lb/62kg Kcals Calculated 1550-1860kcal (25-30kcal/kg) Protein: Using Current wt Protein Calculated 62g (1g/kg) Fluid: ml 1550-1860ml (1ml/kcal) Nutritional Problem 1. Problem Problem Altered nutrition related laboratory values related to Etiology unknown etiology aeb Signs/Symptoms: elevated glucose on adm 228, A1c 6.8 Intervention/Recommendation Comments 1. Recommend [id number] to promote glycemic control. Expected Outcomes/Goals Expected Outcomes/Goals 1. PO intake to meet at least 75% of estimated nutritional needs.
[2016-10-31] MEDS ORDERED: Morphine Sulfate 4 mg/mL 1mL Syr IVP PRN (22:35)
[2016-11-01] MEDS: Hydrocodone/APAP 5mg/325mg Tab PO PRN (00:32)
[2016-11-01 05:41] LABS: % LYMPHOCYTES 26.1 % (20.0-50.0); NEUTROPHILE ABSOLUTE 7.1 Th/cmm (1.8-8.0)
[2016-11-01 05:48] LABS: % BASOPHILS 0.8 % (0.0-2.0); % EOSINOPHILS 2.5 % (0.0-5.0); % MONOCYTES 7.4 % (2.0-10.0); % NEUTROPHILS 63.2 % (40.0-80.0); HEMATOCRIT 33.9 % (41.0-60); HEMOGLOBIN 11.4 gm/dL (12-16); MEAN CELL VOLUME 89.8 fl (81-100); MEAN CORPUSCULAR HEMOGLOBIN 30.3 pg (27.0-31.0); MEAN CORPUSCULAR HGB CONC 33.7 pg (28.0-36.0); MEAN PLATELET VOLUME 7.4 fl; RED BLOOD COUNT 3.77 Mil/cmm (3.80-5.20); RED CELL DISTRIBUTION WIDTH 11.7 % (11.5-20.0); WHITE BLOOD COUNT 11.2 Th/cmm (4.8-10.8)
[2016-11-01 05:54] LABS: ANION GAP 9.4 (7.0-16.0); BUN - UREA NITROGEN 13 mg/dL (7-25); BUN/CREATININE RATIO 32.5; CALCIUM SERUM 8.7 mg/dL (8.6-10.3); CARBON DIOXIDE 30.9 mEq/L (21.0-31.0); CHLORIDE 94 mEq/L (98-107); CREATININE - SERUM 0.4 mg/dL (0.6-1.2); GLUCOSE 121 mg/dL (70-105); POTASSIUM SERUM 3.3 mEq/L (3.5-5.1); SODIUM SERUM 131 mEq/L (136-145)
[2016-11-01 06:02] LABS: PLATELET COUNT 457 Th/cmm (150-400)
[2016-11-01] MEDS: Multivitamin Tab PO SCH (08:35)
[2016-11-01] MEDS: Lactobacillus Rhamnosus 10 Billion CFU Capsule PO SCH (08:35)
[2016-11-01] MEDS: Magnesium Hydroxide (MOM) 30 mL UDC PO PRN (08:42)
[2016-11-01] MEDS ORDERED: Morphine Sulfate 4 mg/mL 1mL Syr IVP PRN (11:11)
[2016-11-01] MEDS ORDERED: Potassium Chloride 20 mEq ER Tab PO ONE (16:08)
--- NOTE | 2016-11-01 16:10 | General Progress Note ---
Subjective - Review of Systems Service Date: 11/01/16 Subjective: pt seen and examined family was at the bedside no new concern reported Objective - Results Result Diagrams: 11/01/16 05:10 11/01/16 05:10 Recent Labs: Laboratory Last Values WBC 11.2 Th/cmm (4.8-10.8) H 11/01/16 05:10 RBC 3.77 Mil/cmm (3.80-5.20) L 11/01/16 05:10 Hgb 11.4 gm/dL (12-16) L 11/01/16 05:10 Hct 33.9 % (41.0-60) L 11/01/16 05:10 MCV 89.8 fl (81-100) 11/01/16 05:10 MCH 30.3 pg (27.0-31.0) 11/01/16 05:10 MCHC Differential 33.7 pg (28.0-36.0) 11/01/16 05:10 RDW 11.7 % (11.5-20.0) 11/01/16 05:10 Plt Count 457 Th/cmm (150-400) H D 11/01/16 05:10 MPV 7.4 fl 11/01/16 05:10 Neutrophils % 63.2 % (40.0-80.0) 11/01/16 05:10 Band Neutrophils % 4 % (0-10) 10/23/16 05:00 Lymphocytes % 26.1 % (20.0-50.0) 11/01/16 05:10 Monocytes % 7.4 % (2.0-10.0) 11/01/16 05:10 Eosinophils % 2.5 % (0.0-5.0) 11/01/16 05:10 Basophils % 0.8 % (0.0-2.0) 11/01/16 05:10 Neutrophils (Manual) 81 % (40-80) H 10/23/16 05:00 Lymphocytes 9 % (20-50) L 10/23/16 05:00 Monocytes 3 % (2-10) 10/23/16 05:00 Eosinophils 2 % (0-5) 10/23/16 05:00 PT 10.4 SECONDS (9.5-11.5) 10/23/16 05:00 INR 1.00 (0.5-1.4) 10/23/16 05:00 Sodium 131 mEq/L (136-145) L 11/01/16 05:10 Potassium 3.3 mEq/L (3.5-5.1) L 11/01/16 05:10 Chloride 94 mEq/L (98-107) L 11/01/16 05:10 Carbon Dioxide 30.9 mEq/L (21.0-31.0) 11/01/16 05:10 Anion Gap 9.4 (7.0-16.0) 11/01/16 05:10 BUN 13 mg/dL (7-25) 11/01/16 05:10 Creatinine 0.4 mg/dL (0.6-1.2) L 11/01/16 05:10 Est GFR ( Amer) TNP 11/01/16 05:10 Est GFR (Non-Af Amer) TNP 11/01/16 05:10 BUN/Creatinine Ratio 32.5 11/01/16 05:10 Glucose 121 mg/dL (70-105) H 11/01/16 05:10 POC Glucose 149 MG/DL (70-105) H 10/23/16 14:52 Hemoglobin A1c % 6.8 % (4.0-6.0) H 10/21/16 23:26 Whole Bld Lactic Acid 3.06 mmol/L (0.60-1.99) H* 10/22/16 01:30 Calcium 8.7 mg/dL (8.6-10.3) 11/01/16 05:10 Total Bilirubin 0.4 mg/dL (0.3-1.0) 10/25/16 06:58 AST 10 U/L (13-39) L 10/25/16 06:58 ALT 9 U/L (7-52) 10/25/16 06:58 Alkaline Phosphatase 93 U/L (34-104) 10/25/16 06:58 Total Protein 6.2 gm/dL (6.0-8.3) 10/25/16 06:58 Albumin 3.2 gm/dL (3.7-5.3) L 10/25/16 06:58 Globulin 3.0 gm/dL 10/25/16 06:58 Albumin/Globulin Ratio 1.1 (1.0-1.8) 10/25/16 06:58 Urine Source [place] 10/22/16 02:24 Urine Color YELLOW 10/22/16 02:24 Urine Clarity CLEAR (CLEAR) 10/22/16 02:24 Urine pH 7.0 (4.6 - 8.0) 10/22/16 02:24 Ur Specific [place] 1.010 (1.005-1.030) 10/22/16 02:24 Urine Protein NEGATIVE mg/dL (NEGATIVE) 10/22/16 02:24 Urine Glucose (UA) NEGATIVE mg/dL (NEGATIVE) 10/22/16 02:24 Urine Ketones NEGATIVE mg/dL (NEGATIVE) 10/22/16 02:24 Urine Blood SMALL (NEGATIVE) H 10/22/16 02:24 Urine Nitrate NEGATIVE (NEGATIVE) 10/22/16 02:24 Urine Bilirubin NEGATIVE (NEGATIVE) 10/22/16 02:24 Urine Urobilinogen 1.0 E.U./dL (0.2 - 1.0) 10/22/16 02:24 Ur Leukocyte Esterase NEGATIVE (NEGATIVE) 10/22/16 02:24 Urine RBC 5-10 /hpf (0-5) H 10/22/16 02:24 Urine WBC 0-2 /hpf (0-5) 10/22/16 02:24 Ur Epithelial Cells FEW /lpf (FEW) 10/22/16 02:24 Urine Bacteria FEW /hpf (NONE SEEN) 10/22/16 02:24 - Physical Exam Vitals and I&O: Vital Signs Temp 98.2 F 11/01/16 16:02 Pulse 80 11/01/16 16:02 Resp 18 11/01/16 16:02 BP 138/59 11/01/16 16:02 Pulse Ox 96 11/01/16 16:02 Intake & Output 10/31/16 11/01/16 11/01/16 18:59 06:59 18:59 Intake Total 100 Balance 100 Weight (lbs) 74.843 kg 61.235 kg Intake: Oral 100 Other: # Voids 3 # Bowel Movements 0 Stool Characteristics Soft Soft Soft Active Medications: Current Medications Acetaminophen/Hydrocodone Bitart ([place] 5mg/325mg) 1 tab PO Q6H PRN PRN Reason: Pain (Mild) Stop: 12/30/16 22:33 Last Admin: 11/01/16 00:32 Dose: 1 tab Amlodipine Besylate (Norvasc) 10 mg PO DAILY [facility] Stop: 12/21/16 20:14 Last Admin: 11/01/16 08:35 Dose: 10 mg Docusate Sodium (Colace) 100 mg PO DAILY PRN PRN Reason: Constipation Stop: 12/23/16 08:59 Last Admin: 10/30/16 20:52 Dose: 100 mg Hydrochlorothiazide (Hctz) 25 mg PO DAILY [facility] Stop: 12/21/16 20:14 Last Admin: 11/01/16 08:34 Dose: 25 mg Lactobacillus Rhamnosus (Culturelle) 1 each PO DAILY [facility] Stop: 12/24/16 08:59 Last Admin: 11/01/16 08:35 Dose: 1 each Magnesium Hydroxide (Milk Of Magnesia) 30 ml PO HS PRN PRN Reason: Constipation Stop: 12/23/16 08:43 Last Admin: 11/01/16 08:42 Dose: 30 ml Miscellaneous (Probiotic Screen) 1 ea MC PRN PRN PRN Reason: PROTOCOL Stop: 12/23/16 10:06 Morphine Sulfate (Morphine) 1 mg IVP Q4H PRN PRN Reason: Pain (Severe) Stop: 12/30/16 22:34 Multivitamins/Vitamin C (Theragran) 1 tab PO DAILY [facility] Stop: 12/23/16 08:59 Last Admin: 11/01/16 08:35 Dose: 1 tab Ondansetron HCl (Zofran) 4 mg IV Q6H PRN PRN Reason: Nausea / Vomiting Stop: 12/21/16 02:40 Last Admin: 10/23/16 12:10 Dose: 4 mg Rivaroxaban (Xarelto) 10 mg PO DAILY [facility] Stop: 11/22/16 08:59 Last Admin: 11/01/16 08:42 Dose: 10 mg Silver Sulfadiazine (Ssd) 1 appl TP BID [facility]A PRN Reason: Protocol Stop: 12/27/16 16:59 Last Admin: 11/01/16 08:35 Dose: 1 appl Cardiovascular: Regular rate Lungs: Clear to auscultation Abdomen: Soft, no Tender Extremities: Other (no edema) Skin: Rash (better) - Procedures Procedures: Procedures Procedure Code Date REPOSITION LEFT UPPER FEMUR WITH INT FIX, OPEN APPROACH [id number] 10/22/16 TREAT THIGH FRACTURE 39199 10/22/16 Assessment/Plan - Assessment Assessment: Left pelvic fracture s/p ORIF HTN Constipation Hypokalemia Debility - Plan Plan: Continue Rehab Stool softner prn Skin care K replacement Family was updated on pt's condition Continue current meds Nutritional Asmnt/Malnutr-PDOC - Dietary Evaluation Malnutrition Findings (Please click <Entered> for more info): Nutritional Asmnt/Malnutrition Start: 10/22/16 14: 16 Text: Status: Complete Freq: Document 10/22/16 14:17 GSUN (Rec: 10/22/16 14:35 GSUN [email or web address]) Nutritional Asmnt/Malnutrition Patient General Information Nutritional Screening High Risk Screening Diagnosis Reason for visit: left hip fracture Pertinent Medical Hx/Surgical Hx ER report: HTN, cataract surgery to left eye Subjective Information 81 year old female form home, Persian speaking. Spoke to pt and granddaughter at bedside who assisted with translations . Pt is unaware of elevated glucose levels. Pt usually with fiar appetite, sometimes skips dinner. RD explained importance of consistent meals and suggested CCHO diet to promote glycemic control, pt understood and agreed. UBW 140lb. Edentulous, pt reported no difficulties eating. No muscle fat wasting noted. Current Diet Order/ Nutrition Support Low sodium Pertinent Medications D5-0.45ns, Morphine, Zofran Pertinent Labs 10/21: potassium 2.9L, glucose 228H, A1c 6.8H Nutritional Hx/Data Height 1.47 m Height (Calculated Centimeters) 147.3 Current Weight (lbs) 61.825 kg Weight (Calculated Kilograms) 61.8 Weight (Calculated Grams) 01085.6 Usual body Weight (lbs) 140 [employer] Body Weight 95 Recent Weight Change No Weight Status Overweight GI Symptoms Skin Integrity/Comment: Jaswinder 20. Skin intact. Estimated Nutritional Goals BEE in Kcals: Using Current wt Calories/Kcals/Kg CBW 136.3lb/62kg Kcals Calculated 1550-1860kcal (25-30kcal/kg) Protein: Using Current wt Protein Calculated 62g (1g/kg) Fluid: ml 1550-1860ml (1ml/kcal) Nutritional Problem 1. Problem Problem Altered nutrition related laboratory values related to Etiology unknown etiology aeb Signs/Symptoms: elevated glucose on adm 228, A1c 6.8 Intervention/Recommendation Comments 1. Recommend [id number] to promote glycemic control. Expected Outcomes/Goals Expected Outcomes/Goals 1. PO intake to meet at least 75% of estimated nutritional needs.
[2016-11-02] MEDS: Hydrocodone/APAP 5mg/325mg Tab PO PRN ×3 (03:45→19:06)
[2016-11-02 05:18] LABS: % EOSINOPHILS 1.5 % (0.0-5.0); HEMOGLOBIN 11.5 gm/dL (12-16); RED CELL DISTRIBUTION WIDTH 11.8 % (11.5-20.0)
[2016-11-02 05:23] LABS: % BASOPHILS 0.3 % (0.0-2.0); % MONOCYTES 5.9 % (2.0-10.0); % NEUTROPHILS 73.3 % (40.0-80.0); MEAN CELL VOLUME 87.4 fl (81-100); MEAN CORPUSCULAR HEMOGLOBIN 30.3 pg (27.0-31.0); MEAN CORPUSCULAR HGB CONC 34.7 pg (28.0-36.0); MEAN PLATELET VOLUME 7.5 fl; NEUTROPHILE ABSOLUTE 9.3 Th/cmm (1.8-8.0); PLATELET COUNT 471 Th/cmm (150-400); RED BLOOD COUNT 3.78 Mil/cmm (3.80-5.20)
[2016-11-02 05:38] LABS: WHITE BLOOD COUNT 12.6 Th/cmm (4.8-10.8)
[2016-11-02 05:39] LABS: ANION GAP 10.8 (7.0-16.0); BUN - UREA NITROGEN 10 mg/dL (7-25); CALCIUM SERUM 8.7 mg/dL (8.6-10.3); CARBON DIOXIDE 28.9 mEq/L (21.0-31.0); CHLORIDE 92 mEq/L (98-107); CREATININE - SERUM 0.4 mg/dL (0.6-1.2); GLUCOSE 154 mg/dL (70-105); POTASSIUM SERUM 3.7 mEq/L (3.5-5.1); SODIUM SERUM 128 mEq/L (136-145)
[2016-11-02] MEDS: Multivitamin Tab PO SCH (09:30)
[2016-11-02] MEDS: Lactobacillus Rhamnosus 10 Billion CFU Capsule PO SCH (09:31)
--- NOTE | 2016-11-02 11:03 | Infectious Disease Prog Note ---
Infectious Disease Subjective - Review of Systems Service Date: 11/02/16 Subjective: Patient has developed leukocytosis, with WBC count 12k, I was called again. examined the patient in detail. Infectious Disease Objective - Results Result Diagrams: 11/02/16 05:00 11/02/16 05:00 Recent Labs: Laboratory Last Values WBC 12.6 Th/cmm (4.8-10.8) H 11/02/16 05:00 RBC 3.78 Mil/cmm (3.80-5.20) L 11/02/16 05:00 Hgb 11.5 gm/dL (12-16) L 11/02/16 05:00 Hct 33.0 % (41.0-60) L 11/02/16 05:00 MCV 87.4 fl (81-100) 11/02/16 05:00 MCH 30.3 pg (27.0-31.0) 11/02/16 05:00 MCHC Differential 34.7 pg (28.0-36.0) 11/02/16 05:00 RDW 11.8 % (11.5-20.0) 11/02/16 05:00 Plt Count 471 Th/cmm (150-400) H 11/02/16 05:00 MPV 7.5 fl 11/02/16 05:00 Neutrophils % 73.3 % (40.0-80.0) 11/02/16 05:00 Band Neutrophils % 4 % (0-10) 10/23/16 05:00 Lymphocytes % 19.0 % (20.0-50.0) L 11/02/16 05:00 Monocytes % 5.9 % (2.0-10.0) 11/02/16 05:00 Eosinophils % 1.5 % (0.0-5.0) 11/02/16 05:00 Basophils % 0.3 % (0.0-2.0) 11/02/16 05:00 Neutrophils (Manual) 81 % (40-80) H 10/23/16 05:00 Lymphocytes 9 % (20-50) L 10/23/16 05:00 Monocytes 3 % (2-10) 10/23/16 05:00 Eosinophils 2 % (0-5) 10/23/16 05:00 PT 10.4 SECONDS (9.5-11.5) 10/23/16 05:00 INR 1.00 (0.5-1.4) 10/23/16 05:00 Sodium 128 mEq/L (136-145) L 11/02/16 05:00 Potassium 3.7 mEq/L (3.5-5.1) 11/02/16 05:00 Chloride 92 mEq/L (98-107) L 11/02/16 05:00 Carbon Dioxide 28.9 mEq/L (21.0-31.0) 11/02/16 05:00 Anion Gap 10.8 (7.0-16.0) 11/02/16 05:00 BUN 10 mg/dL (7-25) 11/02/16 05:00 Creatinine 0.4 mg/dL (0.6-1.2) L 11/02/16 05:00 Est GFR ( Amer) TNP 11/02/16 05:00 Est GFR (Non-Af Amer) TNP 11/02/16 05:00 BUN/Creatinine Ratio 25.0 11/02/16 05:00 Glucose 154 mg/dL (70-105) H 11/02/16 05:00 POC Glucose 149 MG/DL (70-105) H 10/23/16 14:52 Hemoglobin A1c % 6.8 % (4.0-6.0) H 10/21/16 23:26 Whole Bld Lactic Acid 3.06 mmol/L (0.60-1.99) H* 10/22/16 01:30 Calcium 8.7 mg/dL (8.6-10.3) 11/02/16 05:00 Total Bilirubin 0.4 mg/dL (0.3-1.0) 10/25/16 06:58 AST 10 U/L (13-39) L 10/25/16 06:58 ALT 9 U/L (7-52) 10/25/16 06:58 Alkaline Phosphatase 93 U/L (34-104) 10/25/16 06:58 Total Protein 6.2 gm/dL (6.0-8.3) 10/25/16 06:58 Albumin 3.2 gm/dL (3.7-5.3) L 10/25/16 06:58 Globulin 3.0 gm/dL 10/25/16 06:58 Albumin/Globulin Ratio 1.1 (1.0-1.8) 10/25/16 06:58 Urine Source [place] 10/22/16 02:24 Urine Color YELLOW 10/22/16 02:24 Urine Clarity CLEAR (CLEAR) 10/22/16 02:24 Urine pH 7.0 (4.6 - 8.0) 10/22/16 02:24 Ur Specific [place] 1.010 (1.005-1.030) 10/22/16 02:24 Urine Protein NEGATIVE mg/dL (NEGATIVE) 10/22/16 02:24 Urine Glucose (UA) NEGATIVE mg/dL (NEGATIVE) 10/22/16 02:24 Urine Ketones NEGATIVE mg/dL (NEGATIVE) 10/22/16 02:24 Urine Blood SMALL (NEGATIVE) H 10/22/16 02:24 Urine Nitrate NEGATIVE (NEGATIVE) 10/22/16 02:24 Urine Bilirubin NEGATIVE (NEGATIVE) 10/22/16 02:24 Urine Urobilinogen 1.0 E.U./dL (0.2 - 1.0) 10/22/16 02:24 Ur Leukocyte Esterase NEGATIVE (NEGATIVE) 10/22/16 02:24 Urine RBC 5-10 /hpf (0-5) H 10/22/16 02:24 Urine WBC 0-2 /hpf (0-5) 10/22/16 02:24 Ur Epithelial Cells FEW /lpf (FEW) 10/22/16 02:24 Urine Bacteria FEW /hpf (NONE SEEN) 10/22/16 02:24 - Physical Exam Vitals and I&O: Vital Signs Temp 92.5 F 11/02/16 00:00 Pulse 65 11/02/16 09:31 Resp 18 11/02/16 07:53 BP 134/65 11/02/16 09:31 Pulse Ox 98 11/02/16 07:53 Intake & Output 11/01/16 11/02/16 11/02/16 18:59 06:59 18:59 Intake Total 1682 100 Balance 1682 100 Weight (lbs) 61.235 kg 74.843 kg Intake: Oral 1682 100 Other: # Voids 3 3 # Bowel Movements 2 0 Stool Characteristics Soft Soft Active Medications: Current Medications Acetaminophen/Hydrocodone Bitart ([place] 5mg/325mg) 1 tab PO Q6H PRN PRN Reason: Pain (Mild) Stop: 12/30/16 22:33 Last Admin: 11/02/16 09:30 Dose: 1 tab Amlodipine Besylate (Norvasc) 10 mg PO DAILY [facility] Stop: 12/21/16 20:14 Last Admin: 11/02/16 09:31 Dose: 10 mg Docusate Sodium (Colace) 100 mg PO DAILY PRN PRN Reason: Constipation Stop: 12/23/16 08:59 Last Admin: 10/30/16 20:52 Dose: 100 mg Lactobacillus Rhamnosus (Culturelle) 1 each PO DAILY G[facility]ELA Stop: 12/24/16 08:59 Last Admin: 11/02/16 09:31 Dose: 1 each Magnesium Hydroxide (Milk Of Magnesia) 30 ml PO HS PRN PRN Reason: Constipation Stop: 12/23/16 08:43 Last Admin: 11/01/16 08:42 Dose: 30 ml Miscellaneous (Probiotic Screen) 1 ea MC PRN PRN PRN Reason: PROTOCOL Stop: 12/23/16 10:06 Morphine Sulfate (Morphine) 1 mg IVP Q4H PRN PRN Reason: Pain (Severe) Stop: 12/30/16 22:34 Multivitamins/Vitamin C (Theragran) 1 tab PO DAILY GABRIELA Stop: 12/23/16 08:59 Last Admin: 11/02/16 09:30 Dose: 1 tab Ondansetron HCl (Zofran) 4 mg IV Q6H PRN PRN Reason: Nausea / Vomiting Stop: 12/21/16 02:40 Last Admin: 10/23/16 12:10 Dose: 4 mg Rivaroxaban (Xarelto) 10 mg PO DAILY [facility] Stop: 11/22/16 08:59 Last Admin: 11/02/16 09:31 Dose: 10 mg Silver Sulfadiazine (Ssd) 1 appl TP BID GABRIELA PRN Reason: Protocol Stop: 12/27/16 16:59 Last Admin: 11/02/16 09:32 Dose: 1 appl General: no acute distress, well developed, well nourished, other (Patient is comfortable sitting in chair, c/o pain in surgical site.) HEENT: atraumatic, normocephalic, PERRLA, EOMI, moist mucous membrane Neck: supple, no thyromegaly Cardiovascular: S1S2, regular Lungs: clear to auscultation bilaterally, clear to percussion Abdomen: soft, no tender, no distended Extremities: other (The left hip surgical wounds are healthy, no erythema, discharge, tenderness, swelling, or pus.), no cyanosis, no clubbing Neurological: awake, alert, oriented Skin: intact - Procedures Procedures: Procedures Procedure Code Date REPOSITION LEFT UPPER FEMUR WITH INT FIX, OPEN APPROACH [id number] 10/22/16 TREAT THIGH FRACTURE 22132 10/22/16 Infectious Disease Assmt/Plan - Assessment Assessment: 1. Leukocytosis, likely reactive. There are no signs and symptoms of any active infection. 2. left hip fracture. 3. ORIF OF LEFT HIP. 4. Hypertension. - Plan Plan: off antibiotics. will repeat CBC and go from there. PT. Nutritional Asmnt/Malnutr-PDOC - Dietary Evaluation Malnutrition Findings (Please click <Entered> for more info): Nutritional Asmnt/Malnutrition Start: 10/22/16 14: 16 Text: Status: Complete Freq: Document 10/22/16 14:17 GSUN (Rec: 10/22/16 14:35 [email or web address]) Nutritional Asmnt/Malnutrition Patient General Information Nutritional Screening High Risk Screening Diagnosis Reason for visit: left hip fracture Pertinent Medical Hx/Surgical Hx ER report: HTN, cataract surgery to left eye Subjective Information 81 year old female form home, Mongolian speaking. Spoke to pt and granddaughter at bedside who assisted with translations . Pt is unaware of elevated glucose levels. Pt usually with fiar appetite, sometimes skips dinner. RD explained importance of consistent meals and [facility] to promote glycemic control, pt understood and agreed. UBW 140lb. Edentulous, pt reported no difficulties eating. No muscle fat wasting noted. Current Diet Order/ Nutrition Support Low sodium Pertinent Medications D5-0.45ns, Morphine, Zofran Pertinent Labs 10/21: potassium 2.9L, glucose 228H, A1c 6.8H Nutritional Hx/Data Height 1.47 m Height (Calculated Centimeters) 147.3 Current Weight (lbs) 61.825 kg Weight (Calculated Kilograms) 61.8 Weight (Calculated Grams) 00041.6 Usual body Weight (lbs) 140 [place] Body Weight 95 Recent Weight Change No Weight Status Overweight GI Symptoms Skin Integrity/Comment: Jaswinder 20. Skin intact. Estimated Nutritional Goals BEE in Kcals: Using Current wt Calories/Kcals/Kg CBW 136.3lb/62kg Kcals Calculated 1550-1860kcal (25-30kcal/kg) Protein: Using Current wt Protein Calculated 62g (1g/kg) Fluid: ml 1550-1860ml (1ml/kcal) Nutritional Problem 1. Problem Problem Altered nutrition related laboratory values related to Etiology unknown etiology aeb Signs/Symptoms: elevated glucose on adm 228, A1c 6.8 Intervention/Recommendation Comments 1. Recommend [address] to promote glycemic control. Expected Outcomes/Goals Expected Outcomes/Goals 1. PO intake to meet at least 75% of estimated nutritional needs.
[2016-11-02] MEDS ORDERED: Morphine Sulfate 2 mg/mL 1mL Syr IVP PRN (12:07)
[2016-11-02] MEDS: Magnesium Hydroxide (MOM) 30 mL UDC PO PRN (16:12)
[2016-11-03] MEDS: Hydrocodone/APAP 5mg/325mg Tab PO PRN ×2 (03:52→22:20)
[2016-11-03 05:23] LABS: % BASOPHILS 0.4 % (0.0-2.0); % EOSINOPHILS 2.5 % (0.0-5.0); % LYMPHOCYTES 21.8 % (20.0-50.0); % MONOCYTES 6.4 % (2.0-10.0); % NEUTROPHILS 68.9 % (40.0-80.0); HEMATOCRIT 33.6 % (41.0-60); HEMOGLOBIN 11.5 gm/dL (12-16); MEAN CELL VOLUME 90.5 fl (81-100); MEAN CORPUSCULAR HEMOGLOBIN 30.8 pg (27.0-31.0); MEAN CORPUSCULAR HGB CONC 34.1 pg (28.0-36.0); NEUTROPHILE ABSOLUTE 7.8 Th/cmm (1.8-8.0); PLATELET COUNT 508 Th/cmm (150-400); RED BLOOD COUNT 3.72 Mil/cmm (3.80-5.20); RED CELL DISTRIBUTION WIDTH 12.4 % (11.5-20.0); WHITE BLOOD COUNT 11.3 Th/cmm (4.8-10.8)
[2016-11-03] MEDS: Lactobacillus Rhamnosus 10 Billion CFU Capsule PO SCH (08:09)
[2016-11-03] MEDS: Multivitamin Tab PO SCH (08:09)
--- NOTE | 2016-11-03 11:21 | Infectious Disease Prog Note ---
Infectious Disease Subjective - Review of Systems Service Date: 11/03/16 Subjective: mild leukocytosis persists. No fever. Infectious Disease Objective - Results Result Diagrams: 11/03/16 05:13 11/02/16 05:00 Recent Labs: Laboratory Last Values WBC 11.3 Th/cmm (4.8-10.8) H 11/03/16 05:13 RBC 3.72 Mil/cmm (3.80-5.20) L 11/03/16 05:13 Hgb 11.5 gm/dL (12-16) L 11/03/16 05:13 Hct 33.6 % (41.0-60) L 11/03/16 05:13 MCV 90.5 fl (81-100) 11/03/16 05:13 MCH 30.8 pg (27.0-31.0) 11/03/16 05:13 MCHC Differential 34.1 pg (28.0-36.0) 11/03/16 05:13 RDW 12.4 % (11.5-20.0) 11/03/16 05:13 Plt Count 508 Th/cmm (150-400) H 11/03/16 05:13 MPV 7.0 fl 11/03/16 05:13 Neutrophils % 68.9 % (40.0-80.0) 11/03/16 05:13 Band Neutrophils % 4 % (0-10) 10/23/16 05:00 Lymphocytes % 21.8 % (20.0-50.0) 11/03/16 05:13 Monocytes % 6.4 % (2.0-10.0) 11/03/16 05:13 Eosinophils % 2.5 % (0.0-5.0) 11/03/16 05:13 Basophils % 0.4 % (0.0-2.0) 11/03/16 05:13 Neutrophils (Manual) 81 % (40-80) H 10/23/16 05:00 Lymphocytes 9 % (20-50) L 10/23/16 05:00 Monocytes 3 % (2-10) 10/23/16 05:00 Eosinophils 2 % (0-5) 10/23/16 05:00 PT 10.4 SECONDS (9.5-11.5) 10/23/16 05:00 INR 1.00 (0.5-1.4) 10/23/16 05:00 Sodium 128 mEq/L (136-145) L 11/02/16 05:00 Potassium 3.7 mEq/L (3.5-5.1) 11/02/16 05:00 Chloride 92 mEq/L (98-107) L 11/02/16 05:00 Carbon Dioxide 28.9 mEq/L (21.0-31.0) 11/02/16 05:00 Anion Gap 10.8 (7.0-16.0) 11/02/16 05:00 BUN 10 mg/dL (7-25) 11/02/16 05:00 Creatinine 0.4 mg/dL (0.6-1.2) L 11/02/16 05:00 Est GFR ( Amer) TNP 11/02/16 05:00 Est GFR (Non-Af Amer) TNP 11/02/16 05:00 BUN/Creatinine Ratio 25.0 11/02/16 05:00 Glucose 154 mg/dL (70-105) H 11/02/16 05:00 POC Glucose 149 MG/DL (70-105) H 10/23/16 14:52 Hemoglobin A1c % 6.8 % (4.0-6.0) H 10/21/16 23:26 Whole Bld Lactic Acid 3.06 mmol/L (0.60-1.99) H* 10/22/16 01:30 Calcium 8.7 mg/dL (8.6-10.3) 11/02/16 05:00 Total Bilirubin 0.4 mg/dL (0.3-1.0) 10/25/16 06:58 AST 10 U/L (13-39) L 10/25/16 06:58 ALT 9 U/L (7-52) 10/25/16 06:58 Alkaline Phosphatase 93 U/L (34-104) 10/25/16 06:58 Total Protein 6.2 gm/dL (6.0-8.3) 10/25/16 06:58 Albumin 3.2 gm/dL (3.7-5.3) L 10/25/16 06:58 Globulin 3.0 gm/dL 10/25/16 06:58 Albumin/Globulin Ratio 1.1 (1.0-1.8) 10/25/16 06:58 Urine Source [place] 10/22/16 02:24 Urine Color YELLOW 10/22/16 02:24 Urine Clarity CLEAR (CLEAR) 10/22/16 02:24 Urine pH 7.0 (4.6 - 8.0) 10/22/16 02:24 Ur Specific [place] 1.010 (1.005-1.030) 10/22/16 02:24 Urine Protein NEGATIVE mg/dL (NEGATIVE) 10/22/16 02:24 Urine Glucose (UA) NEGATIVE mg/dL (NEGATIVE) 10/22/16 02:24 Urine Ketones NEGATIVE mg/dL (NEGATIVE) 10/22/16 02:24 Urine Blood SMALL (NEGATIVE) H 10/22/16 02:24 Urine Nitrate NEGATIVE (NEGATIVE) 10/22/16 02:24 Urine Bilirubin NEGATIVE (NEGATIVE) 10/22/16 02:24 Urine Urobilinogen 1.0 E.U./dL (0.2 - 1.0) 10/22/16 02:24 Ur Leukocyte Esterase NEGATIVE (NEGATIVE) 10/22/16 02:24 Urine RBC 5-10 /hpf (0-5) H 10/22/16 02:24 Urine WBC 0-2 /hpf (0-5) 10/22/16 02:24 Ur Epithelial Cells FEW /lpf (FEW) 10/22/16 02:24 Urine Bacteria FEW /hpf (NONE SEEN) 10/22/16 02:24 - Physical Exam Vitals and I&O: Vital Signs Temp 99.2 F 11/03/16 08:15 Pulse 68 11/03/16 08:15 Resp 19 11/03/16 08:15 BP 152/68 11/03/16 08:15 Pulse Ox 93 11/03/16 08:15 Intake & Output 11/02/16 11/03/16 11/03/16 18:59 06:59 18:59 Intake Total 150 Balance 150 Weight (lbs) 74.843 kg Intake: Oral 150 Other: # Voids 3 # Bowel Movements 0 Stool Characteristics Soft Soft Active Medications: Current Medications Acetaminophen/Hydrocodone Bitart ([place]oster 5mg/325mg) 1 tab PO Q6H PRN PRN Reason: Pain (Mild) Stop: 12/30/16 22:33 Last Admin: 11/03/16 03:52 Dose: 1 tab Amlodipine Besylate (Norvasc) 10 mg PO DAILY G[facility]ELA Stop: 12/21/16 20:14 Last Admin: 11/03/16 08:09 Dose: 10 mg Docusate Sodium (Colace) 100 mg PO DAILY PRN PRN Reason: Constipation Stop: 12/23/16 08:59 Last Admin: 10/30/16 20:52 Dose: 100 mg Lactobacillus Rhamnosus (Culturelle) 1 each PO DAILY GABRIELA Stop: 12/24/16 08:59 Last Admin: 11/03/16 08:09 Dose: 1 each Magnesium Hydroxide (Milk Of Magnesia) 30 ml PO HS PRN PRN Reason: Constipation Stop: 12/23/16 08:43 Last Admin: 11/02/16 16:12 Dose: 30 ml Miscellaneous (Probiotic Screen) 1 ea MC PRN PRN PRN Reason: PROTOCOL Stop: 12/23/16 10:06 Morphine Sulfate (Morphine) 1 mg IVP Q4H PRN PRN Reason: Severe Pain Stop: 01/01/17 12:06 Last Admin: 11/03/16 08:07 Dose: 1 mg Multivitamins/Vitamin C (Theragran) 1 tab PO DAILY GABRIELA Stop: 12/23/16 08:59 Last Admin: 11/03/16 08:09 Dose: 1 tab Ondansetron HCl (Zofran) 4 mg IV Q6H PRN PRN Reason: Nausea / Vomiting Stop: 12/21/16 02:40 Last Admin: 10/23/16 12:10 Dose: 4 mg Rivaroxaban (Xarelto) 10 mg PO DAILY GAB[facility]ELA Stop: 11/22/16 08:59 Last Admin: 11/03/16 08:09 Dose: 10 mg Silver Sulfadiazine (Ssd) 1 appl TP BID GABRIELA PRN Reason: Protocol Stop: 12/27/16 16:59 Last Admin: 11/03/16 08:11 Dose: 1 appl General: no acute distress, well developed, well nourished HEENT: atraumatic, normocephalic, EOMI, moist mucous membrane Neck: supple, no thyromegaly, no rigid Cardiovascular: S1S2, regular Lungs: clear to auscultation bilaterally, clear to percussion Abdomen: soft, bowel sounds, no tender, no distended, no mass Extremities: other (surgical wound intact on the left hip. No s/s of infection.) , no cyanosis, no clubbing, no edema Neurological: awake, alert, oriented Skin: intact - Procedures Procedures: Procedures Procedure Code Date REPOSITION LEFT UPPER FEMUR WITH INT FIX, OPEN APPROACH [id number] 10/22/16 TREAT THIGH FRACTURE 59538 10/22/16 Infectious Disease Assmt/Plan - Assessment Assessment: 1. Leukocytosis, persists. 2. left hip fracture. 3. ORIF OF LEFT HIP. 4. Hypertension. - Plan Plan: off antibiotics. Check UA and urine culture, CXR and blood culture. Nutritional Asmnt/Malnutr-PDOC - Dietary Evaluation Malnutrition Findings (Please click <Entered> for more info): Nutritional Asmnt/Malnutrition Start: 10/22/16 14: 16 Text: Status: Complete Freq: Document 10/22/16 14:17 GSUN (Rec: 10/22/16 14:35 [email or web address] [email or web address]) Nutritional Asmnt/Malnutrition Patient General Information Nutritional Screening High Risk Screening Diagnosis Reason for visit: left hip fracture Pertinent Medical Hx/Surgical Hx ER report: HTN, cataract surgery to left eye Subjective Information 81 year old female form home, Chinese speaking. Spoke to pt and granddaughter at bedside who assisted with translations . Pt is unaware of elevated glucose levels. Pt usually with fiar appetite, sometimes skips dinner. RD explained importance of consistent meals and suggested CCHO diet to promote glycemic control, pt understood and agreed. UBW 140lb. Edentulous, pt reported no difficulties eating. No muscle fat wasting noted. Current Diet Order/ Nutrition Support Low sodium Pertinent Medications D5-0.45ns, Morphine, Zofran Pertinent Labs 10/21: potassium 2.9L, glucose 228H, A1c 6.8H Nutritional Hx/Data Height 1.47 m Height (Calculated Centimeters) 147.3 Current Weight (lbs) 61.825 kg Weight (Calculated Kilograms) 61.8 Weight (Calculated Grams) 54418.6 Usual body Weight (lbs) 140 [place] Body Weight 95 Recent Weight Change No Weight Status Overweight GI Symptoms Skin Integrity/Comment: Jaswinder 20. Skin intact. Estimated Nutritional Goals BEE in Kcals: Using Current wt Calories/Kcals/Kg CBW 136.3lb/62kg Kcals Calculated 1550-1860kcal (25-30kcal/kg) Protein: Using Current wt Protein Calculated 62g (1g/kg) Fluid: ml 1550-1860ml (1ml/kcal) Nutritional Problem 1. Problem Problem Altered nutrition related laboratory values related to Etiology unknown etiology aeb Signs/Symptoms: elevated glucose on adm 228, A1c 6.8 Intervention/Recommendation Comments 1. Recommend [id number] to promote glycemic control. Expected Outcomes/Goals Expected Outcomes/Goals 1. PO intake to meet at least 75% of estimated nutritional needs.
--- NOTE | 2016-11-03 13:51 | Diagnostic Imaging Report ---
CHEST X-RAY: AP view INDICATION: Pneumonia COMPARISON: 10/23/2016 FINDINGS: Chronic lung changes are noted. There is no focal consolidation or pleural effusions mild cardiomegaly is noted with atherosclerosis. Degenerative changes of the spine are noted. IMPRESSION: Chronic lung changes with no focal consolidation identified. Mild cardiomegaly with atherosclerosis.
[2016-11-04 05:44] LABS: % BASOPHILS 0.3 % (0.0-2.0); % LYMPHOCYTES 23.4 % (20.0-50.0); % NEUTROPHILS 67.3 % (40.0-80.0); HEMATOCRIT 33.4 % (41.0-60); HEMOGLOBIN 11.3 gm/dL (12-16); MEAN CORPUSCULAR HEMOGLOBIN 30.1 pg (27.0-31.0); MEAN CORPUSCULAR HGB CONC 33.8 pg (28.0-36.0); MEAN PLATELET VOLUME 6.9 fl; NEUTROPHILE ABSOLUTE 6.8 Th/cmm (1.8-8.0); PLATELET COUNT 486 Th/cmm (150-400); RED BLOOD COUNT 3.75 Mil/cmm (3.80-5.20); RED CELL DISTRIBUTION WIDTH 12.3 % (11.5-20.0)
[2016-11-04 06:05] LABS: ALB/GLOB RATIO 1.2 (1.0-1.8); ALKALINE PHOSPHATASE 159 U/L (34-104); ANION GAP 9.7 (7.0-16.0); BILIRUBIN,TOTAL 0.4 mg/dL (0.3-1.0); BUN - UREA NITROGEN 12 mg/dL (7-25); CALCIUM SERUM 8.7 mg/dL (8.6-10.3); CARBON DIOXIDE 29.8 mEq/L (21.0-31.0); CHLORIDE 96 mEq/L (98-107); CREATININE - SERUM 0.4 mg/dL (0.6-1.2); GLUCOSE 133 mg/dL (70-105); POTASSIUM SERUM 3.5 mEq/L (3.5-5.1); SGOT 14 U/L (13-39); SGPT/ALT 13 U/L (7-52); SODIUM SERUM 132 mEq/L (136-145)
[2016-11-04] MEDS: Multivitamin Tab PO SCH (08:07)
[2016-11-04] MEDS: Hydrocodone/APAP 5mg/325mg Tab PO PRN ×2 (08:07→21:09)
[2016-11-04] MEDS: Lactobacillus Rhamnosus 10 Billion CFU Capsule PO SCH (08:08)
[2016-11-04 10:25] LABS: URINE BILIRUBIN NEGATIVE (NEGATIVE); URINE BLOOD NEGATIVE (NEGATIVE); URINE GLUCOSE (UA) 500 mg/dL (NEGATIVE); URINE KETONE NEGATIVE (NEGATIVE); URINE PH 6.5 (4.6 - 8.0); URINE PROTEIN NEGATIVE (NEGATIVE); URINE UROBILINOGEN 0.2 E.U./dL (0.2 - 1.0)
[2016-11-04 10:31] LABS: URINE COLOR YELLOW
[2016-11-04 10:35] LABS: URINE AMORPHOUS SEDIMENT FEW URATES (NONE SEEN); URINE BACTERIA OCCASIONAL /hpf (NONE SEEN); URINE EPITHELIAL CELLS FEW /lpf (FEW); URINE RBC 0-2 /hpf (0-5)
[2016-11-05 05:57] LABS: % BASOPHILS 0.5 % (0.0-2.0); % EOSINOPHILS 1.9 % (0.0-5.0); % MONOCYTES 6.9 % (2.0-10.0); % NEUTROPHILS 68.7 % (40.0-80.0); HEMATOCRIT 34.9 % (41.0-60); HEMOGLOBIN 11.7 gm/dL (12-16); MEAN CELL VOLUME 91.9 fl (81-100); MEAN CORPUSCULAR HEMOGLOBIN 30.7 pg (27.0-31.0); MEAN CORPUSCULAR HGB CONC 33.4 pg (28.0-36.0); MEAN PLATELET VOLUME 7.4 fl; NEUTROPHILE ABSOLUTE 6.9 Th/cmm (1.8-8.0); PLATELET COUNT 523 Th/cmm (150-400); RED CELL DISTRIBUTION WIDTH 12.5 % (11.5-20.0); WHITE BLOOD COUNT 10.1 Th/cmm (4.8-10.8)
[2016-11-05 06:18] LABS: ALB/GLOB RATIO 1.1 (1.0-1.8); ALKALINE PHOSPHATASE 176 U/L (34-104); ANION GAP 8.8 (7.0-16.0); BILIRUBIN,TOTAL 0.4 mg/dL (0.3-1.0); BUN - UREA NITROGEN 9 mg/dL (7-25); BUN/CREATININE RATIO 22.5; CALCIUM SERUM 8.8 mg/dL (8.6-10.3); CARBON DIOXIDE 29.5 mEq/L (21.0-31.0); CHLORIDE 98 mEq/L (98-107); CREATININE - SERUM 0.4 mg/dL (0.6-1.2); GLUCOSE 150 mg/dL (70-105); POTASSIUM SERUM 3.3 mEq/L (3.5-5.1); SGOT 14 U/L (13-39); SGPT/ALT 13 U/L (7-52); SODIUM SERUM 133 mEq/L (136-145)
[2016-11-05] MEDS: Multivitamin Tab PO SCH (08:22)
[2016-11-05] MEDS: Lactobacillus Rhamnosus 10 Billion CFU Capsule PO SCH (08:22)
[2016-11-05] MEDS ORDERED: Potassium Chloride 20 mEq ER Tab PO ONE (12:18)
[2016-11-05] MEDS: Hydrocodone/APAP 5mg/325mg Tab PO PRN (12:35)
--- NOTE | 2016-11-05 15:08 | Infectious Disease Prog Note ---
Infectious Disease Subjective - Review of Systems Service Date: 11/05/16 Subjective: leukocytosis resolved. No fever. Infectious Disease Objective - Results Result Diagrams: 11/05/16 05:13 11/05/16 05:13 Recent Labs: Laboratory Last Values WBC 10.1 Th/cmm (4.8-10.8) 11/05/16 05:13 RBC 3.80 Mil/cmm (3.80-5.20) 11/05/16 05:13 Hgb 11.7 gm/dL (12-16) L 11/05/16 05:13 Hct 34.9 % (41.0-60) L 11/05/16 05:13 MCV 91.9 fl (81-100) 11/05/16 05:13 MCH 30.7 pg (27.0-31.0) 11/05/16 05:13 MCHC Differential 33.4 pg (28.0-36.0) 11/05/16 05:13 RDW 12.5 % (11.5-20.0) 11/05/16 05:13 Plt Count 523 Th/cmm (150-400) H 11/05/16 05:13 MPV 7.4 fl 11/05/16 05:13 Neutrophils % 68.7 % (40.0-80.0) 11/05/16 05:13 Band Neutrophils % 4 % (0-10) 10/23/16 05:00 Lymphocytes % 22.0 % (20.0-50.0) 11/05/16 05:13 Monocytes % 6.9 % (2.0-10.0) 11/05/16 05:13 Eosinophils % 1.9 % (0.0-5.0) 11/05/16 05:13 Basophils % 0.5 % (0.0-2.0) 11/05/16 05:13 Neutrophils (Manual) 81 % (40-80) H 10/23/16 05:00 Lymphocytes 9 % (20-50) L 10/23/16 05:00 Monocytes 3 % (2-10) 10/23/16 05:00 Eosinophils 2 % (0-5) 10/23/16 05:00 PT 10.4 SECONDS (9.5-11.5) 10/23/16 05:00 INR 1.00 (0.5-1.4) 10/23/16 05:00 Sodium 133 mEq/L (136-145) L 11/05/16 05:13 Potassium 3.3 mEq/L (3.5-5.1) L 11/05/16 05:13 Chloride 98 mEq/L (98-107) 11/05/16 05:13 Carbon Dioxide 29.5 mEq/L (21.0-31.0) 11/05/16 05:13 Anion Gap 8.8 (7.0-16.0) 11/05/16 05:13 BUN 9 mg/dL (7-25) 11/05/16 05:13 Creatinine 0.4 mg/dL (0.6-1.2) L 11/05/16 05:13 Est GFR ( Amer) TNP 11/05/16 05:13 Est GFR (Non-Af Amer) TNP 11/05/16 05:13 BUN/Creatinine Ratio 22.5 11/05/16 05:13 Glucose 150 mg/dL (70-105) H 11/05/16 05:13 POC Glucose 149 MG/DL (70-105) H 10/23/16 14:52 Hemoglobin A1c % 6.8 % (4.0-6.0) H 10/21/16 23:26 Whole Bld Lactic Acid 3.06 mmol/L (0.60-1.99) H* 10/22/16 01:30 Calcium 8.8 mg/dL (8.6-10.3) 11/05/16 05:13 Total Bilirubin 0.4 mg/dL (0.3-1.0) 11/05/16 05:13 AST 14 U/L (13-39) 11/05/16 05:13 ALT 13 U/L (7-52) 11/05/16 05:13 Alkaline Phosphatase 176 U/L (34-104) H 11/05/16 05:13 Total Protein 6.8 gm/dL (6.0-8.3) 11/05/16 05:13 Albumin 3.6 gm/dL (3.7-5.3) L 11/05/16 05:13 Globulin 3.2 gm/dL 11/05/16 05:13 Albumin/Globulin Ratio 1.1 (1.0-1.8) 11/05/16 05:13 Urine Source RANDOM 11/04/16 09:10 Urine Color YELLOW 11/04/16 09:10 Urine Clarity CLEAR (CLEAR) 11/04/16 09:10 Urine pH 6.5 (4.6 - 8.0) 11/04/16 09:10 Ur Specific [place] 1.010 (1.005-1.030) 11/04/16 09:10 Urine Protein NEGATIVE mg/dL (NEGATIVE) 11/04/16 09:10 Urine Glucose (UA) 500 mg/dL (NEGATIVE) H 11/04/16 09:10 Urine Ketones NEGATIVE mg/dL (NEGATIVE) 11/04/16 09:10 Urine Blood NEGATIVE (NEGATIVE) 11/04/16 09:10 Urine Nitrate NEGATIVE (NEGATIVE) 11/04/16 09:10 Urine Bilirubin NEGATIVE (NEGATIVE) 11/04/16 09:10 Urine Urobilinogen 0.2 E.U./dL (0.2 - 1.0) 11/04/16 09:10 Ur Leukocyte Esterase NEGATIVE (NEGATIVE) 11/04/16 09:10 Urine RBC 0-2 /hpf (0-5) 11/04/16 09:10 Urine WBC 2-5 /hpf (0-5) 11/04/16 09:10 Ur Epithelial Cells FEW /lpf (FEW) 11/04/16 09:10 Amorphous Sediment FEW URATES (NONE SEEN) 11/04/16 09:10 Urine Bacteria OCCASIONAL /hpf (NONE SEEN) 11/04/16 09:10 - Physical Exam Vitals and I&O: Vital Signs Temp 98.5 F 11/05/16 12:00 Pulse 73 11/05/16 12:00 Resp 18 11/05/16 12:00 BP 142/55 11/05/16 12:00 Pulse Ox 96 11/05/16 12:00 Intake & Output 11/04/16 11/05/16 11/05/16 18:59 06:59 18:59 Intake Total 1200 Balance 1200 Weight (lbs) 74.389 kg 74.389 kg Intake: Oral 1200 Other: # Voids 4 3 # Bowel Movements 1 0 Stool Characteristics Soft Soft General: no acute distress, well developed, well nourished HEENT: atraumatic, normocephalic, PERRLA, EOMI, moist mucous membrane Neck: supple, no thyromegaly Cardiovascular: S1S2, regular Lungs: clear to auscultation bilaterally, clear to percussion Abdomen: soft, no tender, no distended Extremities: no cyanosis, no clubbing, no edema Neurological: awake, alert, oriented Skin: intact - Procedures Procedures: Procedures Procedure Code Date REPOSITION LEFT UPPER FEMUR WITH INT FIX, OPEN APPROACH [id number] 10/22/16 TREAT THIGH FRACTURE 31688 10/22/16 Infectious Disease Assmt/Plan - Assessment Assessment: 1. Leukocytosis, Resolved. 2. left hip fracture. 3. ORIF OF LEFT HIP. 4. Hypertension. - Plan Plan: ok to continue cipro. Check UA and urine culture, CXR and blood culture. Nutritional Asmnt/Malnutr-PDOC - Dietary Evaluation Malnutrition Findings (Please click <Entered> for more info): Nutritional Asmnt/Malnutrition Start: 10/22/16 14: 16 Text: Status: Complete Freq: Document 10/22/16 14:17 GSUN (Rec: 10/22/16 14:35 [email or web address] [email or web address]) Nutritional Asmnt/Malnutrition Patient General Information Nutritional Screening High Risk Screening Diagnosis Reason for visit: left hip fracture Pertinent Medical Hx/Surgical Hx ER report: HTN, cataract surgery to left eye Subjective Information 81 year old female form home, [place] speaking. Spoke to pt and granddaughter at bedside who assisted with translations . Pt is unaware of elevated glucose levels. Pt usually with fiar appetite, sometimes skips dinner. RD explained importance of consistent meals and suggested CCHO diet to promote glycemic control, pt understood and agreed. UBW 140lb. Edentulous, pt reported no difficulties eating. No muscle fat wasting noted. Current Diet Order/ Nutrition Support Low sodium Pertinent Medications D5-0.45ns, Morphine, Zofran Pertinent Labs 10/21: potassium 2.9L, glucose 228H, A1c 6.8H Nutritional Hx/Data Height 1.47 m Height (Calculated Centimeters) 147.3 Current Weight (lbs) 61.825 kg Weight (Calculated Kilograms) 61.8 Weight (Calculated Grams) 88559.6 Usual body Weight (lbs) 140 [place] Body Weight 95 Recent Weight Change No Weight Status Overweight GI Symptoms Skin Integrity/Comment: Jaswinder 20. Skin intact. Estimated Nutritional Goals BEE in Kcals: Using Current wt Calories/Kcals/Kg CBW 136.3lb/62kg Kcals Calculated 1550-1860kcal (25-30kcal/kg) Protein: Using Current wt Protein Calculated 62g (1g/kg) Fluid: ml 1550-1860ml (1ml/kcal) Nutritional Problem 1. Problem Problem Altered nutrition related laboratory values related to Etiology unknown etiology aeb Signs/Symptoms: elevated glucose on adm 228, A1c 6.8 Intervention/Recommendation Comments 1. Recommend [address] to promote glycemic control. Expected Outcomes/Goals Expected Outcomes/Goals 1. PO intake to meet at least 75% of estimated nutritional needs.
--- NOTE | 2016-11-05 22:13 | Discharge Summary ---
DATE OF DISCHARGE: 11/05/2016 FINAL DIAGNOSES: 1. Status post mechanical fall, tripped and fell at home on 10/21/2016. 2. Left hip intertrochanteric fracture status post open reduction and internal fixation on 10/24/[address] Yuen, orthopedic designer. Today is postoperative day #12, the patient will follow up with Dr. Yuen to remove the kathy, surgical site kathy are clean. 3. Hypertension with atherosclerotic heart disease. The patient will continue current medications, which include Norvasc and also take Xarelto 10 mg for 9 more days. 4. Leukocytosis, most likely reactive, now resolved. 5. Hyponatremia secondary to hydrochlorothiazide, which resolved after stopping the hydrochlorothiazide, sodium level is 133. It was as low as 128. 6. Hypokalemia secondary to diuretics, also improved from 3.5 to 3.3 and 3.7. 7. Fever on 11/04/2016. Blood culture on 10/22/2016 and 11/03/2016 both negative. Chest x-rays also unremarkable on 11/03/2016 with atherosclerotic changes and chronic lung changes, no focal infiltrate noted, mild cardiomegaly. Urinalysis done on 11/04/2016 essentially unremarkable, wbc's 2-5. On 11/05/2016 WBC is 10.1, hemoglobin 11.7, MCV 92, and platelet count of 123,000 . Sodium 133, potassium 3.3, chloride 98, bicarb 29, BUN 9, creatinine 0.4, glucose 115, calcium 8.8. DISCHARGE MEDICATIONS: Include Xarelto 10 mg p.o. once a day for 9 more days, Norvasc 10 mg p.o. once a day, Colace 100 mg p.o. b.i.d. p.r.n. constipation, [place] 5/325 one tablet p.o. q.4 p.r.n. for pain #30, Cipro 250 p.o. b.i.d. #14. Advised the patient also to take probiotic 1 tablet once a day for 7 days. [facility]# [id number] [facility]
== END 2016-11-05 14:15 | disposition home or self-care (01) | DRG 308 ==
LOC: ER 22:30 → MSI 10-22 02:25 → ICU 10-23 18:00 → MSI 10-24 18:39
PROVIDERS: ADMIT Family Medicine; ATTEND Family Medicine
PROC: 0QS706Z Reposition Left Upper Femur with Intramedullary Internal Fixation Device, Open Approach (ICD-10-PCS; principal; 2016-10-24)
DX: S72.142A Displaced intertrochanteric fracture of left femur, initial encounter for closed fracture (principal); N39.0 Urinary tract infection, site not specified; I11.9 Hypertensive heart disease without heart failure; E44.1 Mild protein-calorie malnutrition; I10 Essential (primary) hypertension; E87.1 Hypo-osmolality and hyponatremia; E87.6 Hypokalemia; K59.00 Constipation, unspecified; W01.0XXA Fall on same level from slipping, tripping and stumbling without subsequent striking against object, initial encounter; R21 Rash and other nonspecific skin eruption; I25.10 Atherosclerotic heart disease of native coronary artery without angina pectoris; T50.2X5A Adverse effect of carbonic-anhydrase inhibitors, benzothiadiazides and other diuretics, initial encounter; Y93.89 Activity, other specified; Y99.8 Other external cause status; Z98.42 Cataract extraction status, left eye; Y92.038 Other place in apartment as the place of occurrence of the external cause
CPT/HCPCS: 36415-UA; 70450-TC; 71010-TC; 72127-TC; 72170-TC; 76000-TC; 80048-TC; 80053-TC; 81001-TC; 82948-90; 83036-90; 83605; 85007-TC; 85025-TC; 85027-TC; 85610-TC; 87086-90; 90799; 93005; 94640; 94760; 96375; 97530; A4217; J0690; J0696; J1650; J2001; J2270; J2405; J3480; J7030; J7042; V2790; X3900; X3904; X5716; X6206; X6776; Z7610